=== PATIENT | female | born 1950 | race Caucasian/White ===

== ENCOUNTER → 2020-02-18 18:05 | Outpatient (CLI) | payer MEDICARE, SELFPAY ==
--- NOTE | ~2020-02-18 | MM_ITS ---
EXAMINATION: MM screening [facility] BI w jason HISTORY: Screening mammogram TECHNIQUE: Craniocaudal and mediolateral oblique 3-D tomosynthesis images were obtained and synthetic 2-D images were generated. CAD analysis was submitted and interpreted. COMPARISON: 08/18/2018, 06/09/2017, 02/28/2016 BREAST PARENCHYMAL COMPOSITION: There are scattered areas of fibroglandular density. FINDINGS: RIGHT BREAST: There is possible architectural distortion in the middle third of the outer breast appr oximately 7 cm from the nipple. LEFT BREAST: An asymmetry is present in the posterior third of the outer breast on the craniocaudal v iew. IMPRESSION: 1. Bilateral breast findings as described above. 2. Additional mammographic views and possible breast ultrasound are recommended. BI-RADS Category 0: Incomplete: Needs additional imaging evaluation. Reviewed, dictated and finalized at location A. IST ATTENDANT IMPRESSION: 1. Bilateral breast findings as described above. 2. Additional mammographic views and possible breast ultrasound are recommended . BI-RADS Category 0: Incomplete: Needs additional imaging evaluation.
== END ==
PROVIDERS: PCP Internal Medicine; Visit Provider Obstetrics & Gynecology
DX: Z12.31 Encounter for screening mammogram for malignant neoplasm of breast (principal); R92.8 Other abnormal and inconclusive findings on diagnostic imaging of breast
CPT/HCPCS: 77063; 77067

== ENCOUNTER → 2020-03-17 07:38 | Outpatient (CLI) | payer MEDICARE, SELFPAY ==
--- NOTE | ~2020-03-17 | MM_ITS ---
EXAMINATION: MM diagnostic mammo BI HISTORY: Architectural distortion/asymmetry reported on 02/18/2020 screening mammogram TECHNIQUE: Additional full field ML and spot CC 3-D tomosynthesis images of both breasts were perform ed and synthetic 2-D images were generated. Rolled medial and rolled lateral craniocaudal views. CAD analysis was submitted and interpreted. COMPARISON: 02/18/2020,08/18/2018, 06/09/2017 bilateral digital screening mammogram examinations FINDINGS: No suspicious mass or architectural distortion, malignant calcification, skin thickening or retraction or significant new or developing density of either breast is detected. IMPRESSION: 1. No mammographic evidence of malignancy 2. Routine annual mammographic screening is recommended. BI-RADS Category 1: Negative Reviewed, dictated and finalized at location A. HEALTH NURSE
== END ==
PROVIDERS: PCP Internal Medicine; Visit Provider Obstetrics & Gynecology
DX: N64.89 Other specified disorders of breast (principal)
CPT/HCPCS: 77066

== ENCOUNTER → 2020-06-23 00:06 | Outpatient (CLI) | payer MEDICARE, SELFPAY ==
[2020-06-23 18:59] LABS: SARS-CoV-2 RNA PCR Negative
== END ==
PROVIDERS: PCP Internal Medicine; Visit Provider Internal Medicine Gastroenterology
DX: Z01.812 Encounter for preprocedural laboratory examination (principal); Z20.822 Contact with and (suspected) exposure to COVID-19
CPT/HCPCS: C9803; U0003; U0005

== ENCOUNTER 2020-06-26 01:33 | Day surgery (SDC) | payer MEDICARE, SELFPAY ==
[2020-06-12 15:12] VITALS: BMI 24.1
[2020-06-26 06:24] VITALS: BP 141/77; PULSE 64; RESP 15; TEMP 36.4; O2SAT 97; BMI 25.0
[2020-06-26] MEDS: LACTATED RINGERS 1,000 ML 150 ML IV CONT (06:33)
--- NOTE | 2020-06-26 07:14 | P.PNAN_ITS ---
Anes - Initial Pre Proc Eval Procedure: Operation Date: 06/26/20 07:30 Proposed Procedures p Screening Colonoscopy - Thaddeus Vera MD Date/Time: 06/26/20 07:14 Surgeon: Thaddeus Vera MD Pre Op Diagnosis: family hx colon CA Patient Data Age: 70 Gender: F Height: 5 ft 1 in Weight: 60.2 kg Last Vital Signs Temp 97.5 F L 06/26/20 06:24 Pulse 64 06/26/20 06:24 Resp 15 06/26/20 06:24 BP 141/77 H 06/26/20 06:24 Pulse Ox 97 06/26/20 06:24 Allergies Allergy/AdvReac Type Severity Reaction Status Date / Time No Known Allergies Allergy Mild Unverified 06/26/20 06:22 Home Medications Medication Instructions Recorded Confirmed Type No Home Medications 06/12/20 06/26/20 History Patient hx anesthesia problems: none Family hx anesthesia problems: none [facility] Past Medical History Medical History (Updated 06/26/20 @ 07:07 by Sarabjit Patterson MD) Hyperlipidemia Social History Social History Alcohol intake: current Drinks per week: 1 Living arrangements: with family Gender identity (if verbalized by the patient): Female Spiritual care concerns: No Anes - Eval Final PreProcedure Day of Procedure 06/26/20 07:14 Patient weight: normal Heart: regular rate and rhythm Lungs: clear to auscultation Airway: Mallampati scale class II Neurological: alert and oriented Last oral intake: >/= 8 hours ASA classification: II Emergent: no Anesthetic plan: proceed Anesthesia type and monitoring: general GIVS and standard monitoring Informed Consent: The patient's anesthetic plan and its attendant risks and benefits were discussed with the patient/family/POA. Questions were solicited and answers provided to the satisfaction of the patient/family/POA.
--- NOTE | 2020-06-26 07:14 | PM.HPGS ---
History of Present Illness History of Present Illness Consent: Risks, benefits, and alternatives have been discussed and questions answered. Patient agrees to proceed with procedure. Chief complaint: family hx colon CA Narrative: Lucy Mcallister is a 70 year old female For colon cancer screening. Her mother had colon cancer Review of Systems Review of Systems: All systems reviewed & are unremarkable except as noted in HPI and below PMFSH Past Medical History Medical History (Updated 06/26/20 @ 07:14 by Thaddeus Vera MD) Hyperlipidemia Social History Social History Alcohol intake: current Drinks per week: 1 Living arrangements: with family Gender identity (if verbalized by the patient): Female Spiritual care concerns: No Meds Home Medications and Allergies Home Medications Medication Instructions Recorded Confirmed Type No Home Medications 06/12/20 06/26/20 History Allergies Allergy/AdvReac Type Severity Reaction Status Date / Time No Known Allergies Allergy Mild Unverified 06/26/20 06:22 Vital Signs Vital Signs - 24 hr 06/26/20 06:24 Temperature 36.4 C L Pulse Rate 64 Respiratory Rate 15 Blood Pressure 141/77 H Pulse Oximetry 97 Exam Resp: Auscultation: clear to auscultation bilaterally Cardio: Rate: regular rate Rhythm: regular rhythm GI: GI Palp: Yes Soft to palpation and No Tenderness to palpation present (GI) Assessment and Plan Assessment and plan (1) Colon cancer screening: Code(s): Z12.11 - Encounter for screening for malignant neoplasm of colon Status: Acute Assessment and Plan: Colonoscopy with possible biopsy or polypectomy or cautery or injection of substances.
[2020-06-26 07:42] VITALS: BP 111/77; PULSE 62; RESP 18; O2SAT 98
[2020-06-26 07:52] VITALS: BP 131/88; PULSE 62; RESP 21; O2SAT 100
[2020-06-26 08:02] VITALS: BP 129/83; PULSE 67; RESP 19; O2SAT 100
== END 2020-06-26 08:12 | disposition home or self-care (01) ==
PROVIDERS: PCP Internal Medicine; Visit Provider Internal Medicine Gastroenterology
PROC: 0DJD8ZZ Inspection of Lower Intestinal Tract, Via Natural or Artificial Opening Endoscopic (ICD-10-PCS; CPT 45378; principal; 2020-06-26 07:30)
DX: Z12.11 Encounter for screening for malignant neoplasm of colon (principal); Z80.0 Family history of malignant neoplasm of digestive organs
CPT/HCPCS: G0105; C9803; J2704; J7120; U0003; U0005

== ENCOUNTER → 2021-05-25 14:19 | Outpatient (CLI) | payer MEDICARE, SELFPAY ==
--- NOTE | ~2021-05-25 | DEXA_ITS ---
Bone Density Report Name: JEAN-PIERRE ONEAL Age: 70 Sex: Female Ethnicity: White Date of : 1950 Indication: osteopenia; postmenopausal Referring Provider: Stu, James Pham Study: Bone densitometry was performed. Exam Date: May 25, 2021 Accession number: [id number] Bone Density: Region BMD T-score Z-score Classification AP Spine (L1-L4) 0.859 -1.7 0.3 Osteopenia Femoral Neck (Left) 0.692 -1.4 0.3 Osteopenia Total Hip (Left) 0.826 -0.9 0.5 Normal Femoral Neck (Right) 0.705 -1.3 0.4 Osteopenia Total Hip (Right) 0.801 -1.2 0.3 Osteopenia Total Hip Mean 0.814 -1.1 0.4 Osteopenia World Health Organization criteria for BMD impression classify patients as: Normal (T-score at or above -1.0), Osteopenia (T-score between -1.0 and -2.5), or Osteoporosis (T-score at or below -2.5). 10-year Fracture Risk(1): Major Osteoporotic Fracture 9.4% Hip Fracture 1.2% Reported Risk Factors: [place] (), Neck BMD=0.692, BMI=23.8 (1) FRAX(R) Version 3.08. Fracture probability calculated for an untreated patient. Fracture probability may be lower if the patient has received treatment. Previous Exams: Region Exam Age BMD T-score BMD Change BMD Change Date g/cm2 vs Baseline vs Previous AP Spine(L1-L4) 05/25/2021 70 0.859 -1.7 0.034* -0.061* 02/03/2016 65 0.920 -1.2 0.095* -0.015 08/24/2012 62 0.936 -1.0 0.111* 0.019 10/23/2007 57 0.917 -1.2 0.092* 0.092* 09/28/2004 54 0.825 -2.0 Total Hip(Left) 05/25/2021 70 0.826 -0.9 0.049* 0.000 02/03/2016 65 0.826 -1.0 0.049* 0.009 08/24/2012 62 0.817 -1.0 0.040* 0.053* 10/23/2007 57 0.764 -1.5 -0.013 -0.013 09/28/2004 54 0.777 -1.4 Total Hip(Right) 05/25/2021 70 0.801 -1.2 0.030* 0.000 02/03/2016 65 0.801 -1.2 0.030* -0.049* 08/24/2012 62 0.850 -0.8 0.079* 0.060* 10/23/2007 57 0.790 -1.2 0.019 0.019 09/28/2004 54 0.771 -1.4 *Denotes significance at 95% confidence level, LSC for AP Spine = 0.022 g/cm2, LSC for Total Hip = 0.027 g/cm2 Clinical Information Provided by Patient: Has used the following medications: Vitamin D Patient maximum height was 62 Menopause Age: 53 Drinks caffeinated beverages Onset of menses at age 15 Number of children 2
--- NOTE | ~2021-05-25 | MM_ITS ---
EXAMINATION: MM screening [facility] BI w jason HISTORY: Screening mammogram TECHNIQUE: Craniocaudal and mediolateral oblique 3-D tomosynthesis images were obtained and synthetic 2-D images were generated. CAD analysis was submitted and interpreted. COMPARISON: 03/17/2020, 02/18/2020, 08/18/2018 BREAST PARENCHYMAL COMPOSITION: There are scattered areas of fibroglandular density. FINDINGS: There is no evidence of suspicious mass, calcification, or architectural distortion to sugg est malignancy in either breast. There has been no suspicious interval change. IMPRESSION: 1. No mammographic evidence of malignancy. 2. Recommend routine screening mammography in one year. BI-RADS Category 1: Negative Reviewed, dictated and finalized at location A. MS PROCESSOR
== END ==
PROVIDERS: PCP Internal Medicine; Visit Provider Obstetrics & Gynecology
DX: Z12.31 Encounter for screening mammogram for malignant neoplasm of breast (principal); N95.9 Unspecified menopausal and perimenopausal disorder; Z87.39 Personal history of other diseases of the musculoskeletal system and connective tissue; M85.88 Other specified disorders of bone density and structure, other site; M85.852 Other specified disorders of bone density and structure, left thigh; M85.851 Other specified disorders of bone density and structure, right thigh
CPT/HCPCS: 77063; 77067; 77080

== ENCOUNTER → 2022-07-12 13:11 | Outpatient (CLI) | payer MEDICARE, SELFPAY ==
--- NOTE | ~2022-07-12 | MM_ITS ---
EXAMINATION: MM screening [facility] BI w jason HISTORY: Screening TECHNIQUE: Craniocaudal and mediolateral oblique 3-D tomosynthesis images were obtained and synthetic 2-D images were generated. CAD analysis was submitted and interpreted. COMPARISON: Comparison to multiple prior studies sequentially, with oldest reviewed study dated 02/12. BREAST PARENCHYMAL COMPOSITION: Breast composed of scattered areas of fibroglandular density FINDINGS: There is no evidence of suspicious mass, calcification, or architectural distortion to sugg est malignancy in either breast. There has been no suspicious interval change. IMPRESSION: 1. No mammographic evidence of malignancy. 2. Recommend routine screening mammography in one year. BI-RADS Category 1: Negative Reviewed, dictated and finalized at location A.
== END ==
PROVIDERS: PCP Internal Medicine; Visit Provider Internal Medicine
DX: Z12.31 Encounter for screening mammogram for malignant neoplasm of breast (principal)
CPT/HCPCS: 77063; 77067

== ENCOUNTER 2023-12-30 11:12 | Outpatient (CLI) | payer MEDICARE, SELFPAY ==
--- NOTE | ~2023-12-30 | MM_ITS ---
EXAMINATION: MM screening [facility] BI w jason HISTORY: Screening mammogram TECHNIQUE: Craniocaudal and mediolateral oblique 3-D tomosynthesis images were obtained and synthetic 2-D images were generated. CAD analysis was submitted and interpreted. COMPARISON: 07/12/2022, 05/25/2021, 03/17/2020, 02/18/2020 BREAST PARENCHYMAL COMPOSITION:Not Dense. The breasts are almost entirely fatty FINDINGS: No suspicious mass, calcification, or architectural distortion are identified in either sugar ast to suggest malignancy. There has been no suspicious interval change. IMPRESSION: No mammographic evidence of malignancy. Recommend routine screening mammography in one year. BI-RADS Category 1: Negative Reviewed, dictated and finalized at location .
== END 2023-12-30 11:13 | disposition home or self-care (01) ==
PROVIDERS: PCP Internal Medicine; Visit Provider Internal Medicine
DX: Z12.31 Encounter for screening mammogram for malignant neoplasm of breast (principal)
CPT/HCPCS: 77063; 77067

== ENCOUNTER 2024-04-08 09:12 | Emergency (ER) | payer MEDICARE, SELFPAY ==
--- NOTE | ~2024-04-08 | XR_ITS ---
EXAMINATION: XR chest 2V DATE: 04/08/2024 09:42 INDICATION: Cough and chest congestion TECHNIQUE: PA and lateral views of the chest were obtained. COMPARISON: None FINDINGS: The lungs are clear with no focal airspace opacities, pulmonary edema, pleural effusion or pneumothor ax. The cardiomediastinal silhouette is normal. Visualized bones and soft tissues are unremarkable. IMPRESSION: 1. No acute cardiopulmonary disease. Reviewed, dictated and finalized at location B. BENCH OPERATOR
[2024-04-08 09:25] VITALS: BP 120/60; PULSE 62; RESP 18; TEMP 36.4; O2SAT 96
--- NOTE | 2024-04-08 09:33 | ED.URI ---
HPI - URI/Sore Throat General Chief Complaint: Upper Respiratory Infection Stated Complaint: cough Time Seen by Provider: 04/08/24 09:25 Source: patient, RN notes reviewed and old records reviewed Mode of arrival: ambulatory Limitations: no limitations History of Present Illness HPI Narrative: Patient presents with complaints of cough. She reports that last week she had some URI symptoms, body aches, runny nose, low-grade fever. She reports all of these symptoms have since resolved over the past several days. She is concerned because she has got a lingering cough, but she also admits that she feels this is getting better. She has been taking [id number] medications with moderate relief. States that she is primarily here today because her family encouraged her to come in, states that she is feeling much better than she was a week ago. Related Data Home Medications ?Medication ?Instructions ?Recorded ?Confirmed ?Last Taken ?Type amlodipine 5 mg tablet mg 04/08/24 Unknown History Allergies Allergy/AdvReac Type Severity Reaction Status Date / Time No Known Allergies Allergy Mild Verified 04/08/24 09:27 Review of Systems Review of Systems: All systems reviewed & are unremarkable except as noted in HPI and below Constitutional: Constitutional: Reports no additional constitutional complaints ENT: Reports system reviewed and no additional complaints, except as documented Cardiovascular: Cardiovascular: Reports no additional cardiovascular complaints Respiratory: Respiratory: Reports no additional respiratory complaints and Reports cough Gastrointestinal: Gastrointestinal: Reports no additional gastrointestinal complaints PMFSH Past Medical History Medical History Hyperlipidemia Social History Social History Alcohol intake: current Drinks per week: 1 Living arrangements: with family Gender identity (if verbalized by the patient): Female Spiritual care concerns: No Comments At the time of my signature, I reviewed and agree with the nursing past medical, surgical, social, and family history. There is no relevant family history pertinent to the patient complaint. Exam Const: General: cooperative, no acute distress, alert and awake Orientation/consciousness: oriented to person, oriented to place and oriented to time HENMT: Head: normal to inspection Resp: Effort & Inspection: normal respiratory effort and able to speak in complete sentences Auscultation: clear to auscultation bilaterally, no crackles, no rales, no rhonchi and no wheezes Cardio: Palpation: normal PMI Rate: regular rate Rhythm: regular rhythm Heart sounds: S1 normal heart sound present and S2 normal heart sound present Neuro: General: oriented to person, oriented to place and oriented to time Cranial nerves: Yes CN's II-XII intact bilaterally Psych: Appearance: grossly normal Thought process: Normal thought process present Insight: Good insight present (Psych) Judgement: Good judgement present (Psych) Course Course Level of Care: Express Care Visit Vital Signs Vital signs: Vital Signs Temperature 97.6 F 04/08/24 09:25 Pulse Rate 62 04/08/24 09:25 Respiratory Rate 18 04/08/24 09:25 Blood Pressure 120/60 04/08/24 09:25 Pulse Oximetry 96 04/08/24 09:25 Oxygen Delivery Room Air 04/08/24 09:25 Temperature 97.6 F 04/08/24 09:25 Pulse Rate 62 04/08/24 09:25 Respiratory Rate 18 04/08/24 09:25 Blood Pressure 120/60 04/08/24 09:25 Pulse Oximetry 96 04/08/24 09:25 Oxygen Delivery Room Air 04/08/24 09:25 Reviewed MDM - URI/Sore Throat MDM Narrative Medical decision making narrative: patient with URI symptoms that began last week, those are subsiding. Now with cough that she feels is improving. Clear chest x-ray. Symptoms likely viral in origin. Treat symptomatically. Patient nontoxic appearing and stable for discharge home. Discharge instructions reviewed with patient, as well as provided in writing per nursing staff. The instructions also include specific and strict return/GO TO THE ER as well as f/u information. All questions have been answered, and the patient deny any further questions with discharge and discharge plan. Some parts of this dictation were generated by voice recognition software and may contain typographical and/or grammatical inaccuracies. Differential Diagnosis Differential diagnosis: Likely upper respiratory infection, otitis media, sinusitis, bronchitis and pharyngitis Medical Records Attestation: I reviewed the patient's medical records. Imaging Data My impression: no acute findings Radiologist's impression: Express [address] [address] XRay Report Signed Patient: EsvinLucy S : 1950 MR#: [id number] Age: 73 Acct:[id number] Loc: [facility] ADM Date: 04/08/24Attending Dr: Ordering Physician: Cindy Weinstein FNP Date of Service: 04/08/24 Procedure(s): XR chest 2V Accession Number(s): [id number] cc: Cindy Weinstein FNP; Irving, Anne Prabhakar MD~ EXAMINATION: XR chest 2V DATE: 04/08/2024 09:42 INDICATION: Cough and chest congestion TECHNIQUE: PA and lateral views of the chest were obtained. COMPARISON: None FINDINGS: The lungs are clear with no focal airspace opacities, pulmonary edema, pleural effusion or pneumothorax. The cardiomediastinal silhouette is normal. Visualized bones and soft tissues are unremarkable. IMPRESSION: 1. No acute cardiopulmonary disease. Reviewed, dictated and finalized at location B. [facility] [employer] Dictated By: Ammon Meraz MD 04/08/24943 Signed By: <Electronically signed by Ammon Meraz MD in OV> 04/08/24 09 Discharge Plan Discharge Clinical Impression: Upper respiratory infection Qualifiers: URI type: unspecified viral URI Qualified Code(s): J06.9 - Acute upper respiratory infection, unspecified Patient Disposition: Home, Self-Care Condition: Stable Instructions: Antibiotic Form, Acute Cough (ED) Additional Instructions: Take medications as prescribed. Follow with primary care provider. Emergency department for new or worse symptoms Patient Language: Syriac Prescriptions: New benzonatate 200 mg capsule 200 mg PO TID PRN (Reason: cough) Qty: 30 0RF albuterol sulfate [Ventolin HFA] 90 mcg/actuation HFA aerosol inhaler 2 puff inhalation QID PRN (Reason: shortness of breath or wheezing) Qty: 8.5 0RF prednisone 50 mg tablet 50 mg PO DAILY Qty: 5 0RF No Action amlodipine 5 mg tablet Follow-up/Referrals: Irving,Anne Prabhakar MD [Primary Care Provider] - 1 Week Time of Disposition: 09:54
--- OUTSIDE RECORDS SUMMARY | 2024-04-15 23:00 | XMS_ITS | Referral Summary ---
Author Organization [facility] Office Center Address [address] [place] [address] Care Team Providers Care Trust Manager Assistant Name Role Phone Anne Villatoro MD Primary Care Provider [phone] González Moser OD Unavailable [phone] Carlos Antony MD Unavailable [phone] Esha Madrid MD Unavailable + [phone] Margarito Torre MD Unavailable [phone] Allergies No known active allergies Medications melatonin tablet Take 1 tablet (3 mg total) by mouth nightly as needed Active ASCORBIC ACID-ASCORBATE CALC ORAL 500 mg daily Active calcium carbonate/paco min D3 (CALCIUM 500 + D ORAL) 600 mg daily Active cholecalcifero l, vitamin D3, (CHOLECALCIFER OL, VIT D3,,BULK, MISC) 1,000 Units daily Active cyanocobalamin (Vitamin B-12) 1,000 mcg tablet daily Active vit C,S-Zy-pcbvj-l utein-zeaxan [id number] oy-gyrk-hy-mg capsule Take 1 tablet by mouth daily Active traZODone (DESYREL) 50 mg tablet Take 1 tablet (50 mg total) by mouth nightly 45 tablet 1 12/10/19 21 Active Additional Information Patient not taking.Reported on 08/11/2023 magnesium gluconate 200 mg tabletIndicati ons:hypomagnes emia 1 tablet (200 mg total) Active uercclsj-vqz-q errous fumarate (Multi Vitamin) 9 mg iron/15 mL liquid Take by mouth Active valACYclovir (VALTREX) 1 gram tablet Take 2 tabs (2000 mg) 2 times a days for 1 day prn fever blisters 4 tablet 5 12/23/19 24 Active amLODIPine (NORVASC) 5 mg tabletIndicati ons:Hypertensi on, essential TAKE 1 TABLET (5 MG) BY MOUTH DAILY 90 tablet 04/12/20 24 Active amLODIPine (NORVASC) 5 mg tabletIndicati ons:Hypertensi on, essential Take 1 tablet (5 mg total) by mouth daily 90 tablet 3 06/23/19 24 024 Discontinued Active Problems Problem Noted Date Diagnosed Date Family history of early CAD 06/17/2022 Hypertension, essential 05/01/2022 Overview (08/05/2022): Managed by Dr Madrid, cardiology Assessment & Plan (08/05/2022 5:24 PM CDT): Managed by Dr Madrid, cardiology Follow low sodium DASH Diet. Exercise regularly for CV health and weight loss. Achieve or Maintain normal BMI/Weight. Take medications as prescribed. Report if having problems with the medication or if develops Chest pains. Monitor BP occly and record. Report if BP consistently over 160/90 or under 90/60 and dizzy and LH. Continue Rx medication. BP is controlled and stable. Assessment & Plan (05/01/2022 12:30 PM GEOTECHNICAL ENGINEER): New onset With WHITEHEAD Responded to amlodipine Cont BP med Ff low sodium diet Exercise ekg today Refer to cardio for stress testing famhx of CAD At risk for stroke or CT Cont to monitor BP and record Low bone mass 07/30/2021 Overview (08/05/2022): dexa 05/25/21 osteopenia on 4000 international units of D3 and taking calcium daily Assessment & Plan (08/05/2022 2:38 PM CDT): Density up to date Cont to exercise for bone strengthening and balance Cont calcium and vit D rich supplements and diet Family history of colon cancer in mother 020 Overview (08/11/2023): Dr Colin, Colonoscopy 02/26/2015 normal Assessment & Plan (08/11/2023 9:52 AM CDT): 2020 last colonoscopy, no polyps , Dr. Jensen Patient goes every five years due to family history Assessment & Plan (07/30/2021 3:17 PM CDT): 2020 last colonoscopy, no polyps Goes every 5 yrs Assessment & Plan (04/10/2020 8:43 AM GEOTECHNICAL ENGINEER): Dr Colin, Colonoscopy 02/26/2015 normal, due q [address] Colin, patient is sched in may 2020 Family history of macular degeneration 0 Overview (04/10/2020): Brother and Mother Assessment & Plan (07/30/2021 3:18 PM CDT): So far no signs of AMD Takes eye vitamins Assessment & Plan (04/10/2020 8:39 AM GEOTECHNICAL ENGINEER): Cont annual eye exams with Dr Quiles Refused influenza vaccine 04/10/2020 Assessment & Plan (04/10/2020 8:56 AM GEOTECHNICAL ENGINEER): Has never been vaccinated for flu, continues to decline. History of COVID-19 11/27/2019 Overview (08/11/2023): Tested at [facility], positive Mild course, WHITEHEAD and fatigue, mild cough 11/2019 1st bout of covid 12/2022 2nd bout of covid Medicare annual wellness visit, subsequent 11/09 Assessment & Plan (08/11/2023 9:47 AM CDT): Cont mvi daily, and daily b12 Reviewed previous labs and diagnostic test results. Chronic medical problems evaluated and management plans discussed with the patient. Prescription medications, supplements, vitamins and immunizations reviewed. Wear seatbelts. Use sunscreen. Discussed healthy diet and disease prevention. Recommend moving towards a plant based diet. Discussed importance of scheduling recommended screening tests. Discussed importance of regular physical examinations for health maintenance. Discussed importance of a living will, advanced directives and establishing or updating healthcare power of divorce attorney document and providing our office with a copy. Assessment & Plan (08/05/2022 2:21 PM CDT): Cont mvi daily, and daily b12 Reviewed previous labs and diagnostic test results. Chronic medical problems evaluated and management plans discussed with the patient. Prescription medications, supplements, vitamins and immunizations reviewed. Wear seatbelts. Use sunscreen. Discussed healthy diet and disease prevention. Recommend moving towards a plant based diet. Discussed importance of scheduling recommended screening tests. Discussed importance of regular physical examinations for health maintenance. Discussed importance of a living will, advanced directives and establishing or updating healthcare power of divorce attorney document and providing our office with a copy. Assessment & Plan (07/30/2021 3:05 PM CDT): Reviewed previous labs and diagnostic test results. Chronic medical problems evaluated and management plans discussed with the patient. Prescription medications, supplements, vitamins and immunizations reviewed. Wear seatbelts. Use sunscreen. Discussed healthy diet and disease prevention. Recommend moving towards a plant based diet. Discussed importance of scheduling recommended screening tests. Discussed importance of regular physical examinations for health maintenance. Discussed importance of a living will, advanced directives and establishing or updating healthcare power of divorce attorney document and providing our office with a copy. Assessment & Plan (04/10/2020 8:36 AM GEOTECHNICAL ENGINEER): Reviewed previous labs and diagnostic test results. Chronic medical problems evaluated and management plans discussed with the patient. Prescription medications, supplements, vitamins and immunizations reviewed. Wear seatbelts. Use sunscreen. Discussed healthy diet and disease prevention. Recommend moving towards a plant based diet. Discussed importance of scheduling recommended screening tests. Discussed importance of regular physical examinations for health maintenance. Discussed importance of a living will, advanced directives and establishing or updating healthcare power of divorce attorney document and providing our office with a copy. Please give the patient papers with information on Advanced Directives, Healthcare Power of Airplane Gas Tank Liner Assembler and Living Will to complete and bring back to the office for their medical records. For comprehensive documentation of your Healthcare directives, I recommend that you fill out paperwork for 5 WISHES online at [email or web address] and return a copy of the completed forms to my office. Assessment & Plan (11/15/2019 8:58 AM CDT): Wear sunscreen with SPF over 50 while outdoors. Wear sun protective head wear and clothing if planning to stay outdoors exposed to the direct sunlight for extended hours. Wear seatbelts while in a vehicle. Do not TEXT and DRIVE Do not DRINK and DRIVE. Drink responsibly Follow a heart healthy diet and lifestyle. Consume 5-7 servings of fruits and vegetables a day.. Such as the Mediterranean Diet. Maintain/attain normal body weight. Exercise regularly, minimum 20 mins 3 days a week to reduce cardiovascular healthy. Maintain good sleep schedule and sleep habits I recommend that all patients follow a diet that is high in fruits and vegetables and low in processed foods such as sugar and foods that are made with white flour. I recommend using beneficial fats such as olive oil, nuts, seeds and berries and avoiding saturated animal fats. Please stay physically active to the extent that you are physically able to. Test results: if you have not received communication about test results within 7 days of the test being performed, please contact the office. I strongly encourage [employer] sign ups. It can facilitate communication flow. Please contact the office for instructions on signing up. Assessment & Plan (11/09/2018 9:18 AM CDT): Wear sunscreen while outdoors. Wear seatbelts while in a vehicle. Do not text and drive. Follow a heart healthy diet and lifestyle. Consume 5-7 servings of fruits and vegetables a day. Maintain/attain normal body weight. Maintain good sleep schedule and sleep habits. I recommend that all patients follow a diet that is high in fruits and vegetables and low in processed foods such as sugar and foods that are made with white flour. I recommend using beneficial fats such as olive oil, nuts, seeds and berries and avoiding saturated animal fats. Please stay physically active to the extent that you are able. Test results: if you have not received communication about test results within 7 days of the test being performed, please contact the office. Dexa hip and spine due Risk for falls 11/09/2018 Assessment & Plan (08/11/2023 9:47 AM CDT): Patient at risk for falls due to age and co morbidities. Fall prevention discussed c patient in detail. Exercises for balance and coordination, keep LE muslces toned and strong. Assessment & Plan (08/05/2022 2:21 PM CDT): Patient at risk for falls due to age and co morbidities. Fall prevention discussed c patient in detail. Exercises for balance and coordination, keep LE muslces toned and strong. Assessment & Plan (07/30/2021 3:05 PM CDT): Patient at risk for falls due to age and co morbidities. Fall prevention discussed c patient in detail. Exercises for balance and coordination, keep LE muslces toned and strong. Assessment & Plan (04/10/2020 8:16 AM GEOTECHNICAL ENGINEER): Patient at risk for falls due to age and co morbidities. Fall prevention discussed c patient in detail. Exercises for balance and coordination, keep LE muslces toned and strong. Assessment & Plan (11/15/2019 8:58 AM CDT): Patient at risk for falls due to age and co morbidities. Fall prevention discussed c patient in detail. Exercises for balance and coordination, keep LE muslces toned and strong. Assessment & Plan (11/09/2018 6:17 PM CDT): Patient at risk for falls due to age and co morbidities. Fall prevention discussed c patient in detail. Exercises for balance and coordination, keep LE muslces toned and strong. Chronic insomnia 10/09/2015 Overview (08/05/2022): Trazodone takes it prn Melatonin prn Magnesium nightly, by Nature made Assessment & Plan (08/11/2023 11:08 AM CDT): Rarely uses the trazodone for sleep, prn Cont otc Melatonin prn Cont otc Magnesium nightly, by Nature made it is helping Assessment & Plan (08/05/2022 5:31 PM CDT): Cont rxTrazodone takes it prn Cont otc Melatonin prn Cont otc Magnesium nightly, by Nature made it is helping Assessment & Plan (07/30/2021 3:19 PM CDT): Does not need it nightly Only takes if has not slept several nightls in a row like 5-7 nights Assessment & Plan (04/10/2020 8:44 AM GEOTECHNICAL ENGINEER): Good sleep hygiene. Continue trazodone prn and melatonin prn Assessment & Plan (11/09/2018 9:19 AM CDT): Good sleep hygiene. Continue trazodone and melatonin. Resolved Problems Problem Noted Date Diagnosed Date Resolved Date Atypical chest pain 05/01/2022 08/06/19 23 Assessment & Plan (05/01/2022 12:29 PM GEOTECHNICAL ENGINEER): Chest pressure woke her up lasted 10 mins No assoc sx Patient later had elev BP new very high with WHITEHEAD Rule out cad ekg today Refer to cardio recommend stress testing Immunizations Name Administration Dates Next Due Influenza, Unspecified 01/12/2022(Deferr ed: Patient Refused),01/12/2021(Deferred: Patient Refused) Moderna SARS-CoV-2 Monovalen t Vaccination (12+ YRS) 02/20/2021 Pneumococcal Conjugate PCV 13 11/09/2018 Pneumococcal Polysaccharide PPV23 04/10/2020 Td, adsorbed 12/13/2006 Tdap 10/07/2016 ZOSTER LIVE 08/29/2014,08/28/2014 ZOSTER Recombinant 09/23/2018,02/06/2018, 018 Social History Tobacco Use Types Packs/Day Years Used Date Smoking Tobacco: Never Smokeless Tobacco: Never Tobacco Cessation:Counseling Given: Not Answered Alcohol Use Standard Drinks/Week Comments Yes 0 (1 standard drink = 0.6 oz pur e alcohol) AUDIT-C Answer Date Recorded Q1: How often do you have a drink containing alc ohol? 2-4 times a month 08/05/2022 Q2: How many drinks containi ng alcohol do you have on a typical day when you are drinking? 1 or 2 08/05/2022 Q3: How often do you have si x or more drinks on one occasion? Never 08/05/2022 PHQ-2 Answer Date Recorded PHQ-2 Total Score (If total score is 3 or more points, staff should administer the PHQ-9) 0 08/11/2023 Comments No Sex and Gender Information Value Date Recorded Sex Assigned at Not on file Legal Sex Female 7:33 PM GEOTECHNICAL ENGINEER Gender Identity Not on file Sexual Orientation Not on file Last Filed Vital Signs Vital Sign Reading Time Taken Comments Blood Pressure 114/74 08/11/2023 10:18 AM CDT Pulse 68 08/11/2023 10:18 AM CDT Temperature 36.3 ??C (97.4 ??F) 08/11/2023 10:18 AM C DT Respiratory Rate 16 08/05/2022 1:38 PM CDT Oxygen Saturation 96% 08/11/2023 10:18 AM CDT Inhaled Oxygen Concentration - - Weight 58.5 kg (129 lb) 08/11/2023 10:18 AM CDT Height 154.9 cm (5' 1 ) 08/11/2023 10:18 AM CDT Body Mass Index 24.37 08/11/2023 10:18 AM CDT Plan of Treatment Not on file Procedures Procedure Name Priority Date/Time Associated Diagnosis Comments MAMMOGRAPHY Routine 12/30/2023 DEXA SCAN Routine 06/05/2021 COLONOSCOPY Routine 06/26/2020 HEPATITIS C ANTIBODY Routine 05/08/2020 9:55 AM GEOTECHNICAL ENGINEER Encounter for hepatitis C screening test for low risk patient from Last 3 Months or Most Recently Relevant to Health Maintenance Results * MAMMOGRAPHY (12/30/2023) Mammography Normal us Historical Provider HEALTH MAINTENANCE Final Result * (ABNORMAL) DEXA SCAN (06/05/2021) Scribed Deca Scan Abnormal Historical Provider HEALTH MAINTENANCE Final Result * COLONOSCOPY (06/26/2020) Scribed Colonoscopy Normal Historical Provider HEALTH MAINTENANCE Final Result * Hepatitis C antibody (05/08/2020 9:55 AM GEOTECHNICAL ENGINEER) Pathologist [facility] Hep C Ab NON-REACTI VE NON-REACT SHIRAZ [facility] SIGNAL TO CUT-OFF 0.02 <1.00 [facility] Comment: HCV antibody was non-reactive. There is no laboratory evidence of HCV infection. In most cases, no further action is required. However, if recent HCV exposure is suspected, a test for HCV RNA (test code 93858) is suggested. For additional information please refer to http://education.MaxLinear/faq/BZU66i0 (This link is being provided for informational/ educational purposes only.) Blood specimen (specimen) 05/08/2020 9:55 AM GEOTECHNICAL ENGINEER 05/08/2020 9:59 AM GEOTECHNICAL ENGINEER Narrative [facility] - 05/09/2020 2:45 PM GEOTECHNICAL ENGINEER COLLECTION KIT GIVEN TO PATIENT. PATIENT ADVISED TO RETURN. Anne Villatoro MD LAB MICROBIOLOGY - GENERAL O RDERABLES Final Result [facility] [address] [place] [address] from Last 3 Months or Most Recently Relevant to Health Maintenance Insurance MEDICARE SOLUTIONS [facility] MEDICARE Address: [address] [address] MEDICARE [employer]UTIONS Care Teams Trust Manager Assistant Relationship Specialty Start Date End Date Anne Villatoro MD [address] [place] [id number] PCP - General Internal Medicine 11/09/18 González Moser OD [address] [place] [address] Ophthalmology 04/10/20 Carlos Antony MD [address] [place] [address] Dermatology 01/12/21 Esha Madrid MD [facility] [address] [address] Consulting Physician Interventional Cardiology 08/05/22 Margarito Torre MD [address] [facility] [address] [address] [place] [address] Referring Physician Dermatology 08/05/22
--- OUTSIDE RECORDS SUMMARY | 2024-04-15 23:00 | XMS_ITS | Encounter Summary ---
Author Organization [facility] Healthcare Address [address] [place] [address] Care Team Providers Care Registration Coordinator Name Role Phone Anne Villatoro MD Primary Care Provider [phone] González Moser OD Unavailable [phone] Carlos Antony MD Unavailable [phone] Esha Madrid MD Unavailable [phone] Margarito Torre MD Unavailable [phone] Encounter Details Date Type Department Care Team (Late st Contact Info) Description 01/05/2024 Telephone [facility] Medical Group Primary Care [address] [address] Anne Villatoro MD [facility] [address] Social History Tobacco Use Types Packs/Day Years Used Date Smoking Tobacco: Never Smokeless Tobacco: Never Alcohol Use Standard Drinks/Week Comments Yes 0 [...] on file Legal Sex Female 7:33 PM IMPORT DISPATCHER Gender Identity Not on file Sexual Orientation Not on file documented as of this encounter Miscellaneous Notes * Telephone Encounter - Fifi Edge MA - 01/05/2024 1:53 PM CDT Updated- Mammogram- [facility] documented in this encounter Plan of Treatment Not on file documented as of this encounter Procedures Procedure Name Priority Date/Time Associated Diagnosis Comments MAMMOGRAPHY Routine 12/30/2023 documented in this encounter Results * MAMMOGRAPHY (12/30/2023) Mammography Normal Historical Provider HEALTH MAINTENANCE Final Result documented in this encounter Visit Diagnoses Not on filedocumented in this encounter Care Teams Registration Coordinator Relationship Specialty Start Date End Date Anne Villatoro MD [address] [place] [id number] PCP - General Internal Medicine 11/09/18 González Moser, ABILIO [address] [place] [address] Ophthalmology 04/10/20 Carlos Antony MD [address] [place] [address] Dermatology 01/12/21 [place] [address] [place] [address] [place] [address] Consulting Physician Interventional Cardiology 08/05/22 Margarito Torre MD [address] [place] [address] Referring Physician Dermatology 08/05/22 documented as of this encounter
--- OUTSIDE RECORDS SUMMARY | 2024-04-15 23:00 | XMS_ITS | Clinical Summary ---
Author Organization [facility] Address [address] [facility] [address] Care Team Providers Care Indoor Sports Centre Manager Name Role Phone Unavailable Primary Care Provider Unavailabl e Source Comments [facility],non-owned Affiliates and Associated Physician Practices is amultiple site organization consisting of ambulatory clinics and hospital sitesin [place], [place], [place] and [place]. This disclosure is being madepursuant to the Care Everywhere program and may not contain all information available regarding this patient. Last updated 18.[facility] Social History Tobacco Use Types Packs/Day Years Used Date Smoking Tobacco: Never Assessed Sex and Gender Information Value Date Recorded Sex Assigned at Not on file Gender Identity Not on file Sexual Orientation Not on file Plan of Treatment Health Maintenance Due Date Last Done Comments BONE DENSITY TESTING 1950 COLOGUARD (AGES 45-75) - COL ON CA SCREENING 1952 COLON MONITORING 1952 COLONOSCOPY - COLON CA SCREENING 1952 CT COLONOGRAPHY - COLON CA SCREENING 1950 Colorectal Cancer Screening 1952 FIT - COLON CA SCREENING 1952 FLEX SIG - COLON CA SCREENING 1952 LIPID TESTING 1952 MAMMOGRAM 1952 HEPATITIS C SCREENING 05/31/1970 DTAP/TDAP/TD VACCINES (1 - Tdap) 1971 ZOSTER VACCINE (1 of 2) 2002 PNEUMOCOCCAL VACCINE 65+ (1 of 1 - PCV) 2017 DEPRESSION SCREENING 04/14/2023 MEDICARE AWV ? CALENDAR YEAR 2023 COVID-19 VACCINE (1 - 2023-2 5 season) 2023 INFLUENZA VACCINE (#1) 2023 Respiratory Syncytial Virus (RSV) Vaccine Pt: or over 60 yrs (1 - 1-dose 75+ series) 2027 HEPATITIS B VACCINE Aged Out No longe r eligible based on patient's age to complete this topic HIB VACCINE Aged Out No longer eligi ble based on patient's age to complete this topic HPV VACCINE Aged Out No longer eligi ble based on patient's age to complete this topic MENINGOCOCCAL VACCINE Aged Out No luis miguel nataly eligible based on patient's age to complete this topic
--- OUTSIDE RECORDS SUMMARY | 2024-04-15 23:00 | XMS_ITS | Encounter Summary ---
Author Organization [facility] Address [address] [place] [address]. [place] [address] Care Team Providers Care Church Warden Name Role Phone Unavailable Primary Care Provider Unavailabl e Encounter Details Date Type Department Care Team (Latest Contact Info) Description 05/03/2020 Travel Social History Tobacco Use Types Packs/Day Years Used Date Smoking Tobacco: Never Assessed Comments Unknown Sex and Gender Information Value Date Recorded Sex Assigned at Not on file Legal Sex Female 11:15 AM FLORAL MERCHANDISER Gender Identity Not on file Sexual Orientation Not on file COVID-19 Exposure Response Date Recorded In the last month, have you been in contact with someone who was confirmed or suspected to have Coronavirus / COVID-19? No / Unsure 05/03/2020 11:17 AM FLORAL MERCHANDISER documented as of this encounter Plan of Treatment Not on file documented as of this encounter Visit Diagnoses Not on filedocumented in this encounter
--- OUTSIDE RECORDS SUMMARY | 2024-04-15 23:00 | XMS_ITS | Patient Health Summary ---
Author Organization [facility] Address [address] [place] [address] Care Team Providers Care Geothermal Technician Name Role Phone Unavailable Primary Care Provider Unavailabl e Note from [facility],non-owned Affiliates and Associated Physician Practices is amultiple site organization consisting of ambulatory clinics and hospital sitesin [place], [place], [place] and [place]. This disclosure is being madepursuant to the Care Everywhere program and may not contain all information available regarding this patient. Last updated 18.[facility] Social History Tobacco Use Types Packs/Day Years Used Date Smoking Tobacco: Never Assessed Sex and Gender Information Value Date Recorded Sex Assigned at Not on file Gender Identity Not on file Sexual Orientation Not on file Procedures * DERMATOPATHOLOGY(Performed 12/19/2022) Performed for Neoplasm of uncertain behavior of skin Results * DERMATOPATHOLOGY (12/19/2022 3:33 AM CDT) Case Report Dermatopathology Report ? Case: [id number] ? Authorizing Provider: ??Cralos Antony MD ? Collected: ? 12/19/2022 03:33 AM ? Ordering Location: ? [facility] DermPath Lab ? Received: ?12/23/2022 08:09 AM ? Pathologist: ? Francie Amato MD ? Specimen: ?Skin, upper back ? 3 12:23 PM T DERMATOPATHOLOGY LABORATORY Final Diagnosis Specimen A. SKIN, upper back: HYPERPLASTIC (HYPERTROPHIC) ACTINIC KERATOSIS (L57.0) 3 12:23 PM T DERMATOPATHOLOGY LABORATORY Clinical History Squamous Cell Carcinoma vs. Irritated Seborrheic Keratosis 3 12:23 PM T DERMATOPATHOLOGY LABORATORY Gross Description Specimen A: Received is one formalin filled container labeled with the patient's name and designated upper back. The specimen consists of a shave biopsy measuring 6x5x3 mm. Jar 0. 3 12:23 PM T DERMATOPATHOLOGY LABORATORY Microscopic Description Specimen A. SKIN, upper back: There is hyperkeratosis alternating with parakeratosis. There is epidermal hyperplasia with disorderly maturation of keratinocytes with nuclear pleomorphism confined to the lower half of the epidermis. 3 12:23 PM T DERMATOPATHOLOGY LABORATORY Disclaimer An external and internal positive and negative controls are appropriate for the histochemical, immunohistochemical and immunofluorescence stain(s) in this case (if any), except where stated explicitly. The performance characteristics of the stain(s) cited in this report were developed and its performance characteristic determined by the Dermatopathology Laboratory at [facility], directed by Dr. Jak Easton. These tests need not be, and therefore are not, approved by the [place] Food and Drug Administration. The tests are used for clinical purposes. Billing Codes Specimen Charges Stain Charges 18526 1 3 12:23 PM CDT DERMATOPATHOLOGY LABORATORY Embedded Images 3 12:23 PM T DERMATOPATHOLOGY LABORATORY Pathology/Cytolo gy TISSUE SPECIMEN FROM SKIN / Unknown 12/19/2022 3:33 AM CDT 12/23/2022 8:09 AM CDT Carlos Antony MD LAB - PATHOLOGY/CYTO LOGY ORDERABLES DERMATOPATHOLOGY LABORATORY [facility] - Department of Dermatology [facility] Medicine [address] [place] [address], [address] [phone]
--- OUTSIDE RECORDS SUMMARY | 2024-04-15 23:00 | XMS_ITS | Encounter Summary ---
Author Organization [facility] Address [address] [place] [address]. [place] [address] [place] [address] Care Team Providers Care Manufacturing Engineer Supervisor Name Role Phone Unavailable Primary Care Provider Unavailabl e Encounter Details Date Type Department Care Team (Latest Contact Info) Description 05/03/2020 11:23 AM SALES REPRESENTATIVE FACILITY SERVICES - 05/03/2020 11:59 PM SALES REPRESENTATIVE FACILITY SERVICES Hospital Encounter [facility] Immunization [place] [address] Charles Romano MD Discharge Disposition: Home or Self Care (Routine Discharge) Social History Tobacco Use Types Packs/Day Years Used Date Smoking Tobacco: Never Assessed Comments Unknown Sex and Gender Information Value Date Recorded Sex Assigned at Not on file Legal Sex Female 11:15 AM SALES REPRESENTATIVE FACILITY SERVICES Gender Identity Not on file Sexual Orientation Not on file COVID-19 Exposure Response Date Recorded In the last month, have you been in contact with someone who was confirmed or suspected to have Coronavirus / COVID-19? No / Unsure 05/03/2020 11:17 AM SALES REPRESENTATIVE FACILITY SERVICES documented as of this encounter Plan of Treatment Not on file documented as of this encounter Visit Diagnoses Diagnosis Need for prophylactic vaccination against viral disease- Primary Need for prophylactic vaccination and inoculation against other viral diseases documented in this encounter
--- OUTSIDE RECORDS SUMMARY | 2024-04-15 23:00 | XMS_ITS | Referral Summary ---
Author Organization [facility] Address [address] [facility] [place] [address] Care Team Providers Care Emergency Management Consultant Name Role Phone Unavailable Primary Care Provider Unavailabl e Source Comments [facility],non-owned Affiliates and Associated Physician Practices is amultiple site organization consisting of ambulatory clinics and hospital sitesin [place], [place], [place] and [place]. This disclosure is being madepursuant to the Care Everywhere program and may not contain all information available regarding this patient. Last updated 18.[facility] Doctor Evidence Social History Tobacco Use Types Packs/Day Years Used Date Smoking Tobacco: Never Assessed Sex and Gender Information Value Date Recorded Sex Assigned at Not on file Gender Identity Not on file Sexual Orientation Not on file Plan of Treatment Not on file
--- OUTSIDE RECORDS SUMMARY | 2024-04-15 23:00 | XMS_ITS | Encounter Summary ---
Author Organization [facility] Address [address] [place] [address]. [place] [address] [place] [address] Care Team Providers Care Director Of Religious Life Name Role Phone Unavailable Primary Care Provider Unavailabl e Encounter Details Date Type Department Care Team (Latest Contact Info) Description 05/31/2020 12:13 PM CATCHER HELPER - 05/31/2020 11:59 PM CATCHER HELPER Hospital Encounter [facility] [place] [address] Charles Romano MD Discharge Disposition: Home or Self Care (Routine Discharge) Social History Tobacco Use Types Packs/Day Years Used Date Smoking Tobacco: Never Assessed Comments Unknown Sex and Gender Information Value Date Recorded Sex Assigned at Not on file Legal Sex Female 11:15 AM CATCHER HELPER Gender Identity Not on file Sexual Orientation Not on file COVID-19 Exposure Response Date Recorded In the last month, have you been in contact with someone who was confirmed or suspected to have Coronavirus / COVID-19? No / Unsure 05/31/2020 12:11 PM CATCHER HELPER documented as of this encounter Plan of Treatment Not on file documented as of this encounter Visit Diagnoses Diagnosis Need for prophylactic vaccination against viral disease- Primary Need for prophylactic vaccination and inoculation against other viral diseases documented in this encounter
--- OUTSIDE RECORDS SUMMARY | 2024-04-15 23:00 | XMS_ITS | Clinical Summary ---
Author Organization [facility] Address [address] [place] [address] Care Team Providers Care Stitchdown Toe Former Name Role Phone Anne Villatoro MD Primary Care Provider [phone] González Moser OD Unavailable [phone] Carlos Antony MD Unavailable [phone] Esha Madrid MD Unavailable + [phone] Margarito Torre MD Unavailable [phone] Allergies No known active allergies Medications melatonin tablet Take 1 tablet (3 mg total) by mouth nightly as needed Active ASCORBIC ACID-ASCORBATE CALC ORAL 500 mg daily Active calcium carbonate/paco min D3 (CALCIUM 500 + D ORAL) 600 mg daily Active cholecalcifero l, vitamin D3, (CHOLECALCIFER OL, VIT D3,,BULK, MISC) 1,000 Units daily Active cyanocobalamin (Vitamin B-12) 1,000 mcg tablet daily Active vit C,V-Ck-exhkh-l utein-zeaxan [id number] cz-bfqn-ef-mg capsule Take 1 tablet by mouth daily Active traZODone (DESYREL) 50 mg tablet Take 1 tablet (50 mg total) by mouth nightly 45 tablet 1 12/10/19 21 Active Additional Information Patient not taking.Reported on 08/11/2023 magnesium gluconate 200 mg tabletIndicati ons:hypomagnes emia 1 tablet (200 mg total) Active cpybpurt-twc-p errous fumarate (Multi Vitamin) 9 mg iron/15 [...] stable. Assessment & Plan (05/01/2022 12:30 PM LEVEL VIAL SETTER): New onset With WHITEHEAD Responded to amlodipine Cont BP med Ff low sodium diet Exercise ekg today Refer to cardio for stress testing famhx of CAD At risk for stroke or KS Cont to monitor BP and record Low [...] yrs Assessment & Plan (04/10/2020 8:43 AM LEVEL VIAL SETTER): Dr Colin, Colonoscopy 02/26/2015 normal, due q [address] Colin, patient is sched in may 2020 Family history of macular degeneration 0 Overview (04/10/2020): Brother and Mother Assessment & Plan (07/30/2021 3:18 PM CDT): So far no signs of AMD Takes eye vitamins Assessment & Plan (04/10/2020 8:39 AM LEVEL VIAL SETTER): Cont annual eye exams with Dr Quiles Refused influenza vaccine 04/10/2020 Assessment & Plan (04/10/2020 8:56 AM LEVEL VIAL SETTER): Has never been vaccinated for flu, continues to decline. History of COVID-19 11/27/2019 Overview (08/11/2023): Tested at [facility], positive Mild course, WHITEHEAD and fatigue, mild [...] and establishing or updating healthcare power of senior attorney document and providing our office with [...] and establishing or updating healthcare power of senior attorney document and providing our office with [...] and establishing or updating healthcare power of senior attorney document and providing our office with a copy. Assessment & Plan (04/10/2020 8:36 AM LEVEL VIAL SETTER): Reviewed previous labs and diagnostic test results. [...] and establishing or updating healthcare power of senior attorney document and providing our office with a copy. Please give the patient papers with information on Advanced Directives, Healthcare Power of Machine Inspector and Living Will to complete and bring [...] please contact the office. I strongly encourage [employer] sign ups. It can facilitate communication flow. [...] strong. Assessment & Plan (04/10/2020 8:16 AM LEVEL VIAL SETTER): Patient at risk for falls due to [...] nights Assessment & Plan (04/10/2020 8:44 AM LEVEL VIAL SETTER): Good sleep hygiene. Continue trazodone prn and melatonin prn Assessment & Plan (11/09/2018 9:19 AM CDT): Good sleep hygiene. Continue trazodone and melatonin. Resolved Problems Problem Noted Date Diagnosed Date Resolved Date Atypical chest pain 05/01/2022 08/06/19 Assessment & Plan (05/01/2022 12:29 PM LEVEL VIAL SETTER): Chest pressure woke her up lasted 10 [...] ZOSTER LIVE 08/29/2014,08/28/2014 ZOSTER Recombinant 09/23/2018,02/06/2018, 018 Surgical History Surgery Date Site/Laterality Comments TUBAL LIGATION CATARACT EXTRACTION, BILATERAL 05/15/2021 - 06/11/[address] Sarabjit Rene, 05/2021 and 06/2021 CATARACT EXTRACTION 05/2021 Medical History Medical History Date Comments Persistent insomnia Hypertension 04/24/22 Acid indigestion Hyperlipidemia Varicella Family History Medical History Relation Name Comments Macular degeneration Brother 1 Hypertension Brother 2 Amado Stroke Brother 2 Amado Alcohol abuse Father Dad Heart attack Father Dad Heart disease Father Dad COPD Mother Mom Cancer Mother Mom Colon cancer Mother Mom Macular degeneration Mother Mom Heart disease Sister Federica Relation Name Status Comments Brother 1 Alive Brother 2 Amado Alive Father Dad Mother Mom Sister Federica Social History Tobacco Use Types Packs/Day Years [...] on file Legal Sex Female 7:33 PM LEVEL VIAL SETTER Gender Identity Not on file Sexual Orientation Not on file Obstetrics History Last Filed Vital Signs Vital Sign Reading [...] 08/11/2023 10:18 AM CDT Plan of Treatment Health Maintenance Due Date Last Done Comments Hepatitis B Screening 1968 Osteoporosis Screening-Bone Density Scan 06/05/2023 06/05/2021, 02/03/2016 Covid-19 Vaccine (4 - 2024-2 5 season) 2023 02/20/2021, 05/31/2020, 05/03/2020 Depression Screening 08/10/2024 08/11/2023, 08/11/2023, 08/05/2022, Additional history exists Fall Risk Assessment 08/10/2024 08/11/2023, 08/05/2022, 07/30/2021, Additional history exists Well Visit 65+ 08/10/2024 08/11/2023, 07/14, 07/30/2021, Additional history exists Breast Cancer Screening-Mammogram 12/29/2024 12/30/2023, 07/12/2022, 05/25/2021, Additional history exists Colon Cancer Screening-Colonoscopy 06/26/2025 06/26/2020, 04/28/2013 DTaP/Tdap/Td Vaccine (2 - Td or Tdap) 10/07/2026 10/07/2016, 12/13/2006 Zoster Vaccine Completed 09/23/2018, 01/13, 02/05/2018, Additional history exists Pneumococcal vaccine 65+ Completed 04/10/2020, 10/13 Hepatitis C Screening Completed 05/08/2020 Colon Cancer Screening-CT Colonography Discontinued 06/26/2020, 04/28/2013 Colon Cancer Screening-DNA Stool Discontinued 06/27/19, 04/28/2013 Colon Cancer Screening-FIT Discontinued 06/26/2020, Colon Cancer Screening-Sigmoidoscopy Discontinued 06/26/2020, 04/28/2013 Influenza Vaccine Discontinued Procedures Procedure Name Priority Date/Time Associated Diagnosis Comments MAMMOGRAPHY Routine 12/30/2023 DEXA SCAN Routine 06/05/2021 COLONOSCOPY Routine 06/26/2020 HEPATITIS C ANTIBODY Routine 05/08/2020 9:55 AM LEVEL VIAL SETTER Encounter for hepatitis C screening test for low risk patient from Last 3 Months or Most Recently Relevant to Health Maintenance Results * MAMMOGRAPHY (12/30/2023) Mammography Normal Historical Provider HEALTH MAINTENANCE Final Result * (ABNORMAL) DEXA SCAN (06/05/2021) Scribed Deca Scan Abnormal Historical Provider HEALTH MAINTENANCE Final Result * COLONOSCOPY (06/26/2020) Scribed Colonoscopy Normal Historical Provider HEALTH MAINTENANCE Final Result * Hepatitis C antibody (05/08/2020 9:55 AM LEVEL VIAL SETTER) Hep C Ab NON-REACTI VE NON-REACT SHIRAZ [facility] SIGNAL TO CUT-OFF 0.02 <1.00 [facility] Comment: HCV antibody was non-reactive. There is no laboratory evidence of HCV infection. In most cases, no further action is required. However, if recent HCV exposure is suspected, a test for HCV RNA (test code 65351) is suggested. For additional information please refer to http://education.Canopi.Clover/faq/HAJ84d4 (This link is being provided for informational/ educational purposes only.) Blood specimen (specimen) 05/08/2020 9:55 AM LEVEL VIAL SETTER 05/08/2020 9:59 AM LEVEL VIAL SETTER Narrative [facility] - 05/09/2020 2:45 PM LEVEL VIAL SETTER COLLECTION KIT GIVEN TO PATIENT. PATIENT ADVISED TO RETURN. Anne Villatoro MD LAB MICROBIOLOGY - GENERAL O RDERABLES Final Result [facility] [id number] [id number] from Last 3 Months or Most Recently Relevant to Health Maintenance Insurance MEDICARE SOLUTIONS MEDICARE SOLUTIONS Care Teams Stitchdown Toe Former Relationship Specialty Start Date End Date Anne Villatoro MD [address] [place] [id number] PCP - General Internal Medicine 11/09/18 González Moser OD [address] [place] [address] Ophthalmology 04/10/20 Carlos Antony MD [address] [place] [address] Dermatology 01/12/21 Esha Madrid MD [address] [place] [address], [place] [address] Consulting Physician Interventional Cardiology 08/05/22 Margarito Torre MD [address] [place] [address] Referring Physician Dermatology 08/05/22
--- OUTSIDE RECORDS SUMMARY | 2024-04-15 23:00 | XMS_ITS | Encounter Summary ---
Author Organization [facility] Address [address] [place] [address]. [address] [address] Care Team Providers Care Animal Services Officer Name Role Phone Unavailable Primary Care Provider Unavailabl e Encounter Details Date Type Department Care Team (Latest Contact Info) Description 05/31/2020 Travel Social History Tobacco Use Types Packs/Day Years Used Date Smoking Tobacco: Never Assessed Comments Unknown Sex and Gender Information Value Date Recorded Sex Assigned at Not on file Legal Sex Female 11:15 AM ACADEMIC SUCCESS COORDINATOR Gender Identity Not on file Sexual Orientation Not on file COVID-19 Exposure Response Date Recorded In the last month, have you been in contact with someone who was confirmed or suspected to have Coronavirus / COVID-19? No / Unsure 05/31/2020 12:11 PM ACADEMIC SUCCESS COORDINATOR documented as of this encounter Plan of Treatment Not on file documented as of this encounter Visit Diagnoses Not on filedocumented in this encounter
--- OUTSIDE RECORDS SUMMARY | 2024-04-15 23:00 | XMS_ITS | Encounter Summary ---
Author Organization [facility] Address [address] [place] [address] Care Team Providers Care Container Repairer Name Role Phone Unavailable Primary Care Provider Unavailabl e Encounter Details Date Type Department Care Team (Late st Contact Info) Description 12/19/2022 Lab Requisition [facility] - DermPath Lab [address], [place] [address] Carlos Antony MD [facility] DERMATOLOGY [address] [place] [phone] Neoplasm of uncertain behavior of skin Social History Tobacco Use Types Packs/Day Years Used Date Smoking Tobacco: Never Assessed Sex and Gender Information Value Date Recorded Sex Assigned at Not on file Gender Identity Not on file Sexual Orientation Not on file documented as of this encounter Plan of Treatment Not on file documented as of this encounter Procedures Procedure Name Priority Date/Time Associated Diagnosis Comments DERMATOPATHOLOGY Routine 12/19/2022 3:33 AM CDT Neoplasm of uncertain behavior of skin documented in this encounter Results * DERMATOPATHOLOGY (12/19/2022 3:33 AM CDT) Case Report Dermatopathology Report ? Case: [id number] ? Authorizing Provider: ??Carlos Antony MD ? Collected: ? 12/19/2022 03:33 AM ? Ordering Location: ? [facility] ? Received: ?12/23/2022 08:09 AM ? Pathologist: ? Francie Amato MD ? Specimen: ?Skin, upper back ? 3 12:23 PM CDT DERMATOPATHOLOGY LABORATORY Final Diagnosis Specimen A. SKIN, upper back: HYPERPLASTIC (HYPERTROPHIC) ACTINIC KERATOSIS (L57.0) 3 12:23 PM T DERMATOPATHOLOGY LABORATORY Clinical History Squamous Cell Carcinoma vs. Irritated Seborrheic Keratosis 3 12:23 PM CDT DERMATOPATHOLOGY LABORATORY Gross Description Specimen A: Received is one formalin filled container labeled with the patient's name and designated upper back. The specimen consists of a shave biopsy measuring 6x5x3 mm. Jar 0. 3 12:23 PM CDT DERMATOPATHOLOGY LABORATORY Microscopic Description Specimen A. SKIN, upper back: There is hyperkeratosis alternating with parakeratosis. There is epidermal hyperplasia with disorderly maturation of keratinocytes with nuclear pleomorphism confined to the lower half of the epidermis. 3 12:23 PM CDT DERMATOPATHOLOGY LABORATORY Disclaimer An external and internal positive and negative controls are appropriate for the histochemical, immunohistochemical and immunofluorescence stain(s) in this case (if any), except where stated explicitly. The performance characteristics of the stain(s) cited in this report were developed and its performance characteristic determined by the Dermatopathology Laboratory at [facility], directed by Dr. Jak Easton. These tests need not be, and therefore are not, approved by the [place] Food and Drug Administration. The tests are used for clinical purposes. Billing Codes Specimen Charges Stain Charges 41845 1 3 12:23 PM CDT DERMATOPATHOLOGY LABORATORY Embedded Images 3 12:23 PM CDT DERMATOPATHOLOGY LABORATORY Pathology/Cytolo gy TISSUE SPECIMEN FROM SKIN / Unknown 12/19/2022 3:33 AM CDT 12/23/2022 8:09 AM CDT Carlos Antony MD LAB - PATHOLOGY/CYTO LOGY ORDERABLES DERMATOPATHOLOGY LABORATORY [facility] - Department of Dermatology [facility] Medicine [address] [place] [address], [address] [phone] documented in this encounter Visit Diagnoses Diagnosis Neoplasm of uncertain behavior of skin documented in this encounter
--- OUTSIDE RECORDS SUMMARY | 2024-04-15 23:00 | XMS_ITS | Clinical Summary ---
Author Organization [facility] Address [address] [place] [address]. [place], [place] [address] [place] [address] Care Team Providers Care Sexer Name Role Phone Unavailable Primary Care Provider Unavailabl e Immunizations Name Administration Dates Next Due MODERNA COVID-19 (12+) MRNA, LNP-S, PF, 100 MCG/ 0.5 ML DOSE 05/31/2020,05/03/2020 Social History Tobacco Use Types Packs/Day Years Used Date Smoking Tobacco: Never Assessed Comments Unknown Sex and Gender Information Value Date Recorded Sex Assigned at Not on file Legal Sex Female 11:15 AM INFECTION CONTROL PREVENTIONIST Gender Identity Not on file Sexual Orientation Not on file Plan of Treatment Health Maintenance Due Date Last Done Comments Colorectal Cancer Screening Colonoscopy (10 Years) 1952 Hepatitis C 1970 DTaP, Tdap and Td Vaccines ( 1 - Tdap) 1971 Mammogram Screening 1992 Dexa Scan (General) 2017 Pneumococcal Vaccine: 65+ Years (1 of 1 - PCV) 2017 COVID-19 Vaccine (3 - 2023-2 5 season) 2023 05/31/2020, 05/03/2020 Influenza Adult (#1) 2024 RSV Immunization or 60+ Years (1 - 1-dose 75+ series) 2027 Zoster Vaccines Completed 09/23/2018, 02/05/2018, 08/28/2014 Meningococcal Vaccine Aged Out No luis miguel nataly eligible based on patient's age to complete this topic RSV Immunizations Under 20 Months Aged Out No longer eligible b ased on patient's age to complete this topic
--- OUTSIDE RECORDS SUMMARY | 2024-04-15 23:01 | XMS_ITS | Encounter Summary ---
Author Organization [facility] Healthcare Address [address] [place] [address] Care Team Providers Care Plant Hr Manager Name Role Phone Anne Villatoro MD Primary Care Provider [phone] González Moser OD Unavailable [phone] Carlos Antony MD Unavailable [phone] Esha Madrid MD Unavailable + [phone] Margarito Torre MD Unavailable [phone] Encounter Details Date Type Department Care Team (Late st Contact Info) Description 09/23/2023 Telephone [facility] Medical Group Primary Care [address] [address] Anne Villatoro MD [facility] [address] Social History Tobacco Use Types [...] on file 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 Patient is just concerned with her trigs raising upso may points. She does not want to go on meds but is wondering if doing protein powder in her smoothies with low fat yogurt and fruit is a cause? Then she was wondering if Tumeric would be good to take. Please advise? * Telephone Encounter - Fifi Edge MA - 09/23/2023 3:07 PM CDT ----- Message from Anne Villatoro MD sent at 09/22/2023 6:54 PM CDT ----- Please call the patient regarding her abnormal result. Cholesterol again remains high. Remainder oflabs. About the same as last year. Thyroid function is normal vitamin-D is also normal range. Repeat these documented in this encounter Plan of Treatment Scheduled Orders Name Type Priority Associated Diagnoses Orde r Schedule Vitamin D 25 hydroxy Lab Routine Hypertension, essential Family history of early CAD Elevated cholesterol with elevated triglycerides Low bone mass Expected: 08/05/2024 (Approximate), Expires: 09/22/2024 Lipid panel Lab Routine Hypertension, essential Family history of early CAD Elevated cholesterol with elevated triglycerides Low bone mass Expected: 08/05/2024 (Approximate), Expires: 09/22/2024 Thyroid Function [place] Lab Routine Hypertension, essential Family history of early CAD Elevated cholesterol with elevated triglycerides Low bone mass Expected: 08/05/2024 (Approximate), Expires: 09/22/2024 Comprehensive metabolic panel Lab Routine Hypertension, essential Family history of early CAD Elevated cholesterol with elevated triglycerides Low bone mass Expected: 08/05/2024 (Approximate), Expires: 09/22/2024 CBC with auto differential Lab Routine Hypertension, essential Family history of early CAD Elevated cholesterol with elevated triglycerides Low bone mass Expected: 08/05/2024 (Approximate), Expires: 09/22/2024 documented as of this encounter Visit Diagnoses Diagnosis Hypertension, essential- Primary Unspecified essential hypertension Family history of early CAD Family history of ischemic heart disease Elevated cholesterol with elevated triglycerides Mixed hyperlipidemia Low bone mass documented in this encounter Care Teams Plant Hr Manager Relationship Specialty Start Date End Date Anne Villatoro MD [facility] [address] PCP - General Internal Medicine 11/09/18 González Moser OD [address] [place] [address] Ophthalmology 04/10/20 Carlos Antony MD [address] [place] [address] Dermatology 01/12/21 Esha Madrid MD [address] [facility] [address] [place] [address] Consulting Physician Interventional Cardiology 08/05/22 Margarito Torre MD [address] [facility] [facility] [place] [address] Referring Physician Dermatology 08/05/22 documented as of this encounter
--- OUTSIDE RECORDS SUMMARY | 2024-04-15 23:01 | XMS_ITS | Encounter Summary ---
Author Organization [facility] Healthcare Address [address] [place] [address] Care Team Providers Care Pipeline Dispatch Operator Name Role Phone Anne Villatoro MD Primary Care Provider [phone] González Moser OD Unavailable [phone] Carlos Antony MD Unavailable [phone] Esha Madrid MD Unavailable + [phone] Margarito Torre MD Unavailable [phone] Reason for Visit * Reason Comments Follow-up Annual f/u Hypertension Encounter Details Date Type Department Care Team (Late st Contact Info) Description 06/23/2023 9:00 AM CDT Office Visit [facility] Medical Group Cardiology [address] [facility] [address] [place] [address] Esha Madrid MD [address] [place] [address] Hypertension, essential (Primary Dx); Family history of early CAD Social History Tobacco Use Types Packs/Day Years [...] points, staff should administer the PHQ-9) 0 08/05/2022 Comments No Sex and Gender Information Value Date Recorded Sex Assigned at Not on file 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 Gender Identity Not on file Sexual Orientation Not on file documented as of this encounter Last Filed Vital Signs Vital Sign Reading Time Taken Comments Blood Pressure 120/70 06/23/2023 8:52 AM CDT Pulse 79 06/23/2023 8:52 AM CDT Temperature - - Respiratory Rate - - Oxygen Saturation 95% 06/23/2023 8:52 AM CDT Inhaled Oxygen Concentration - - Weight 59.3 kg (130 lb 12.8 oz) 06/23/2023 8:52 AM CDT Height 154.9 cm (5' 1 ) 06/23/2023 8:52 AM CDT Body Mass Index 24.71 06/23/2023 8:52 AM CDT documented in this encounter Progress Notes * Esha Madrid MD - 06/23/2023 9:00 AM CDT [facility] CARDIOLOGY DATE OF VISIT: 06/23/2023 CHIEF COMPLAINT Chief Complaint Patient presents with ??? Follow-up Annual f/u ??? Hypertension HPI Lucy Mcallister is a 73 y.o. female with past medical history of hypertension, hyperlipidemia, GERD who was referred to our office for evaluation for family history of CAD and hypertension. She states that her sister had 2 stents and brother had stroke. Never smoked cigarettes and drinks alcohol on occasions. She does get episodes of epigastric heartburn. One time she woke up with upper abdominal discomfort and last for about 10 minutes. Denies shortness of breath, lower extremity edema dizziness or syncope. She states that blood pressure was high a couple months ago and much improved after started on amlodipine. She does walk 3-4 miles per day 5 times per week and denies exertional chest pain. 06/23/2023-returns for follow-up appointment. Denies chest pain, shortness of breath, dizziness, orsyncope palpitations. She is planning to start back walking. She mentioned that some days when she eats salty things her blood pressure goes high. MEDICAL HISTORY Past Medical History: Diagnosis Date ??? Acid indigestion ??? Hyperlipidemia ??? Hypertension 04/24/22 ??? Persistent insomnia Past Surgical History: Procedure Laterality Date ??? CATARACT EXTRACTION 05/2021 ??? CATARACT EXTRACTION, BILATERAL Bilateral 05/2021 Dr Sarabjit Rene, 05/2021 and 06/2021 ??? TUBAL LIGATION Social History Tobacco Use ??? Smoking status: Never ??? Smokeless tobacco: Never Substance and Sexual Activity ??? Drug use: Never ??? Sexual activity: Not Currently Partners: Male control/protection: Post-menopausal Alcohol Use: Not At Risk (08/05/2022) AUDIT-C ??? Frequency of Alcohol Consumption: 2-4 times a month ??? Average Number of Drinks: 1 or 2 ??? Frequency of Binge Drinking: Never Family History Problem Relation Age of Onset ??? Colon cancer Mother ??? Macular degeneration Mother ??? Cancer Mother ??? COPD Mother ??? Heart attack Father ??? Alcohol abuse Father ??? Heart disease Father ??? Heart disease Sister ??? Macular degeneration Brother ??? Stroke Brother 55 ??? Hypertension Brother MEDICATIONS Current Outpatient Medications Medication Sig Dispense Refill ??? amLODIPine (NORVASC) 5 mg tablet Take 1 tablet (5 mg total) by mouth daily 30 tablet 1 ??? ASCORBIC ACID-ASCORBATE CALC ORAL 500 mg daily ??? calcium carbonate/vitamin D3 (CALCIUM 500 + D ORAL) 600 mg daily ??? cholecalciferol, vitamin D3, (CHOLECALCIFEROL, VIT D3,,BULK, MISC) 1,000 Units daily ??? cyanocobalamin (Vitamin B-12) 1,000 mcg tablet daily ??? magnesium gluconate 200 mg tablet 200 mg ??? melatonin tablet 3 mg daily ??? multivitamin capsule Take 1 capsule by mouth daily ??? traZODone (DESYREL) 50 mg tablet Take 1 tablet (50 mg total) by mouth nightly (Patient taking differently: Take 50 mg by mouth as needed) 45 tablet 1 ??? vit C,S-Cn-ukuup-lutein-zeaxan [id number] dr-tosy-pp-mg capsule Take 1 tablet by mouth daily No current facility-administered medications for this visit. ALLERGIES No Known Allergies REVIEW OF SYSTEMS Review of Systems Constitutional: Negative for chills, fever and malaise/fatigue. HENT: Negative for congestion and sore throat. Eyes: Negative for blurred vision and double vision. Cardiovascular: Negative for chest pain, claudication, dyspnea on exertion, leg swelling, near-syncope, orthopnea, palpitations, paroxysmal nocturnal dyspnea and syncope. Respiratory: Negative for cough, hemoptysis, shortness of breath, snoring, sputum production and wheezing. Endocrine: Negative for cold intolerance and polyuria. Hematologic/Lymphatic: Negative for bleeding problem. Does not bruise/bleed easily. Skin: Negative for itching and rash. Musculoskeletal: Negative for back pain, joint pain and joint swelling. Gastrointestinal: Positive for heartburn. Negative for abdominal pain, diarrhea, nausea and vomiting. Genitourinary: Negative for dysuria, frequency and hematuria. Neurological: Negative for focal weakness, headaches and light-headedness. Psychiatric/Behavioral: Negative for depression. The patient is not nervous/anxious. Allergic/Immunologic: Negative for environmental allergies and hives. PHYSICAL EXAM Vitals BP 120/70 (BP Location: Right arm, Patient Position: Sitting) Pulse 79 Ht 154.9 cm (5' 1 ) Wt 59.3 kg (130 lb 12.8 oz) SpO2 95% BMI 24.71 kg/m?? Body mass index is 24.71 kg/m??. Physical Exam Constitutional: General: She is not in acute distress. Appearance: She is well-developed. HENT: Head: Normocephalic and atraumatic. Right Ear: External ear normal. Left Ear: External ear normal. Eyes: General: No scleral icterus. Left eye: No discharge. Conjunctiva/sclera: Conjunctivae normal. Neck: Thyroid: No thyromegaly. Cardiovascular: Rate and Rhythm: Normal rate and regular rhythm. Heart sounds: Normal heart sounds. No murmur heard. No friction rub. No gallop. Pulmonary: Effort: Pulmonary effort is normal. No respiratory distress. Breath sounds: Normal breath sounds. No wheezing or rales. Chest: Chest wall: No tenderness. Abdominal: General: There is no distension. Palpations: Abdomen is soft. There is no mass. Tenderness: There is no abdominal tenderness. Musculoskeletal: General: No tenderness or deformity. Cervical back: Normal range of motion and neck supple. Right lower leg: No edema. Left lower leg: No edema. Skin: General: Skin is warm. Findings: No erythema or rash. Neurological: Mental Status: She is alert and oriented to person, place, and time. Cranial Nerves: No cranial nerve deficit. Motor: No abnormal muscle tone. Psychiatric: Mood and Affect: Mood normal. LABS AND OTHER DIAGNOSTIC TESTS Lab Results Component Value Date WBC 4.7 12/13/2022 HGB 14.5 12/13/2022 HCT 41.1 12/13/2022 MCV 101.5 (H) 12/13/2022 Chemistry Component Value Date/Time SODIUM 141 12/13/2022 0918 POTASSIUM 4.2 12/13/2022 0918 CHLORIDE 104 12/13/2022 0918 CO2 31 12/13/2022 0918 BUNSER 19 12/13/2022 0918 CREATININE 0.79 12/13/2022 0918 GLUCOSE 90 12/13/2022 0918 Component Value Date/Time CALCIUM 9.5 12/13/2022 0918 ALKPHOS 59 12/13/2022 0918 AST 25 12/13/2022 0918 ALT 23 12/13/2022 0918 BILITOT 0.5 12/13/2022 0918 Lab Results Component Value Date CHOL 253 (H) 12/13/2022 CHOL 232 (H) 10/17/2021 CHOL 235 (H) 05/08/2020 Lab Results Component Value Date HDL 68 12/13/2022 HDL 73 10/17/2021 HDL 67 05/08/2020 No results found for: LDLCALC Lab Results Component Value Date TRIG 123 12/13/2022 TRIG 97 10/17/2021 TRIG 118 05/08/2020 Lab Results Component Value Date CHOLHDL 3.7 12/13/2022 CHOLHDL 3.2 10/17/2021 CHOLHDL 3.5 05/08/2020 EKG May 01, 2022 sinus rhythm ASSESSMENT Diagnoses and all orders for this visit: Hypertension, essential (Primary) Family history of early CAD PLAN/RECOMMENDATIONS In regards to hypertension, her blood pressure appears to be controlled 120/70.. Refill amlodipine 5 mg daily. Avoid salt In regards to family history of CAD, patient denies exertional chest pain. She does admit to episodes of acid indigestion. EKG is normal. She walks 3-4 miles 5 times per week and denies exertional chest pain. Continue to monitor at this time. Offered the patient's CT calcium score but she wants to think about it. In regards to chest discomfort, feels more like acid indigestion. Given family history will recommend to perform treadmill exercise stress test to reassure the patient. Patient declined the test. In regards to history of hyperlipidemia, lipid panel done September 2022 shows LDL 160, HDL 68 triglycerides 129. Patient stated that in December she was not eating healthy. Counseling done regarding importance of heart healthy diet. She is supposed to get blood work through PCP in the next 1 month. Follow up in the office in in 1 year. Esha Madrid MD documented in this encounter Plan of Treatment Not on file documented as of this encounter Visit Diagnoses Diagnosis Hypertension, essential- Primary Unspecified essential hypertension Family history of early CAD Family history of ischemic heart disease documented in this encounter Historical Medications * This list may reflect changes made after this encounter. outylfeg-phf-ruilr us fumarate (Multi Vitamin) 9 mg iron/15 mL liquid Take by mouth added in this encounter Care Teams Pipeline Dispatch Operator Relationship Specialty Start Date End Date Anne Villatoro MD [address] [place] [id number] PCP - General Internal Medicine 11/09/18 González Moser OD [address] [place], [place] [address] Ophthalmology 04/10/20 Carlos Antony MD [address] [place] [address] Dermatology 01/12/21 Esha Madrid MD [address] [facility] [address] [place] [address] Consulting Physician Interventional Cardiology 08/05/22 Margarito Torre MD [address] [place] [address] Referring Physician Dermatology 08/05/22 documented as of this encounter
--- OUTSIDE RECORDS SUMMARY | 2024-04-15 23:01 | XMS_ITS | Encounter Summary ---
Author Organization [facility] Healthcare Address [address] [place] [address] Care Team Providers Care Ballast Regulator Operator Name Role Phone Anne Villatoro MD Primary Care Provider [phone] González Moser OD Unavailable [phone] Carlos Antony MD Unavailable [phone] Esha Madrid MD Unavailable [phone] Margarito Torre MD Unavailable [phone] Reason for Visit * Reason Onset Date Comments Symptom Based Call 01/27/2023 Encounter Details Date Type Department Care Team ([facility] st Contact Info) Description 01/27/2023 Telephone [facility] Medical Group Primary Care [address] [address] Anne Villatoro MD [facility] [address] Symptom Based Call Social History Tobacco Use Types Packs/Day Years [...] on file 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 30 tablet 01/27/2023 3 documented in this encounter Miscellaneous Notes * Telephone Encounter - Magali Aguero MA - 01/27/2023 2:36 PM CDT Pt notified * Telephone Encounter - Anne Villatoro MD - 01/27/2023 12:34 PM CDT Prescription antiviral medication sent to pharmacy. Take full course as prescribed. Hold trazodone while taking this medication. Plenty of rest. Hydrate well. Get to the ER if symptoms worsen * Telephone Encounter - Kimberley Alfaro - 01/27/2023 11:06 AM CDT Symptom Based Call Caller's Callback #: [phone] Chief Complaint(s): Body aches, headache, sore throat, cough, chills, and hot/cold Duration: Friday What type of symptom(s) is the patient experiencing? Non-Emergent. Is this a new or reoccurring symptom(s)? New What have you tried to help your symptom(s)? NA Why was appointment not scheduled? Patient refusing appointment regardless of availability. Additional Comments: Pt stated she tested positive for Covid on Friday. She wants to know if Dr. Villatoro can prescribe the medication for covid. She stated she was traveling back on a plane and [place] close by her coughing. She thinks she caught it from traveling. Does message need to be routed? Yes-Action Needed documented in this encounter Plan of Treatment Not on file documented as of this encounter Visit Diagnoses Not on filedocumented in this encounter Care Teams Ballast Regulator Operator Relationship Specialty Start Date End Date Anne Villatoro MD [address] [place] [address] PCP - General Internal Medicine 11/09/18 González Moser, ABILIO [address] [place] [address] Ophthalmology 04/10/20 Carlos Antony MD [address] [place] [address] Dermatology 01/12/21 Esha Madrid MD [address] [facility] [address], [place] [address] Consulting Physician Interventional Cardiology 08/05/22 Margarito Torre MD [address] [facility] [place] [address] Referring Physician Dermatology 08/05/22 documented as of this encounter
--- OUTSIDE RECORDS SUMMARY | 2024-04-15 23:01 | XMS_ITS | Encounter Summary ---
Author Organization [facility] Medical Group Address [address] [facility] [address] [place] [address] Care Team Providers Care Quarter Folder Name Role Phone Anne Villatoro MD Primary Care Provider + [phone] González Moser OD Unavailable [phone] Carlos Antony MD Unavailable [phone] Esha Madrid MD Unavailable + [phone] Margarito Torre MD Unavailable [phone] Encounter Details Date Type Department Care Team (Late st Contact Info) Description 12/19/2022 Orders Only [facility] Health Information Management [address] [place] [address] Scanning, Provider Social History Tobacco Use Types Packs/Day Years [...] on file 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 Gender Identity Not on file Sexual Orientation Not on file documented as of this encounter Plan of Treatment Not on file documented as of this encounter Procedures Procedure Name Priority Date/Time Associated Diagnosis Comments SCAN - PATHOLOGY 12/19/2022 documented in this encounter Results * SCAN - PATHOLOGY (12/19/2022) us Provider Scanning Final Result documented in this encounter Visit Diagnoses Not on filedocumented in this encounter Care Teams Quarter Folder Relationship Specialty Start Date End Date Anne Villatoro MD [address] [address] PCP - General Internal Medicine 11/09/18 González Moser, OD [address] [place] [address] Ophthalmology 04/10/20 Carlos Antony MD [address] [place] [address] Dermatology 01/12/21 Esha Madrid MD [address] [facility] [address] [place] [address] Consulting Physician Interventional Cardiology 08/05/22 Margarito Torre MD [address] [facility] [place] [address] Referring Physician Dermatology 08/05/22 documented as of this encounter
--- OUTSIDE RECORDS SUMMARY | 2024-04-15 23:01 | XMS_ITS | Encounter Summary ---
Author Organization [facility] Medical Group Address [address] [address] Care Team Providers Care General Labor Name Role Phone Anne Villatoro MD Primary Care Provider [phone] González Moser OD Unavailable [phone] Carlos Antony MD Unavailable [phone] Esha Madrid MD Unavailable + [phone] Margarito Torre MD Unavailable [phone] Encounter Details Date Type Department Care Team (Late st Contact Info) Description 12/19/2022 Orders Only [facility] Medical Group Primary Care [address] [address] Anne Villatoro MD [facility] [address] Hypertension, essential (Primary Dx); Abnormal TSH Social History Tobacco Use Types Packs/Day Years [...] on file 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 Gender Identity Not on file Sexual Orientation Not on file documented as of this encounter Plan of Treatment Not on file documented as of this encounter Visit Diagnoses Diagnosis Hypertension, essential- Primary Unspecified essential hypertension Abnormal TSH documented in this encounter Care Teams General Labor Relationship Specialty Start Date End Date Anne Villatoro MD [address] [place] [address] PCP - General Internal Medicine 11/09/18 González Moser, ABILIO [address] [place] [address] Ophthalmology 04/10/20 Carlos Antony MD [address] [place] [address] Dermatology 01/12/21 Esha Madrid MD [address] [facility] [address] [place] [address] Consulting Physician Interventional Cardiology 08/05/22 Margarito Torre MD [address] [facility] [place] [id number] Referring Physician Dermatology 08/05/22 documented as of this encounter
--- OUTSIDE RECORDS SUMMARY | 2024-04-15 23:01 | XMS_ITS | Encounter Summary ---
Author Organization [facility] Healthcare Address [address] [place] [address] Care Team Providers Care Electricity Trader Name Role Phone Anne Villatoro MD Primary Care Provider + [phone] González Moser OD Unavailable [phone] Carlos Antony MD Unavailable [phone] Esha Madrid MD Unavailable + [phone] Margarito Torre MD Unavailable [phone] Encounter Details Date Type Department Care Team (Late st Contact Info) Description 02/06/2023 Telephone [facility] Medical Group Cardiology [address] [place] [address] Esha Madrid MD [address] [address] Social History Tobacco Use Types Packs/Day Years [...] on file 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 * Telephone Encounter - Sheila Guevara - 02/06/2023 12:22 PM CDT Pt states she received a call from [facility] in regard to scheduling a stress test that was neverscheduled. Pt states when she talked to about it, they decided the stress test was not necessary. Contact: documented in this encounter Plan of Treatment Not on file documented as of this encounter Visit Diagnoses Not on filedocumented in this encounter Care Teams Electricity Trader Relationship Specialty Start Date End Date Anne Villatoro MD [address] [place] [id number] PCP - General Internal Medicine 11/09/18 González Moser OD [address] [place], [place] [id number] Ophthalmology 04/10/20 Carlos Antony MD [address] [place], [place] [address] Dermatology 01/12/21 Esha Madrid MD [address] [facility] [address] [facility] [place] [address] Consulting Physician Interventional Cardiology 08/05/22 Margarito Torre MD [address] [facility] [place] [address] Referring Physician Dermatology 08/05/22 documented as of this encounter
--- OUTSIDE RECORDS SUMMARY | 2024-04-15 23:01 | XMS_ITS | Encounter Summary ---
Author Organization [facility] Healthcare Address [address] [place] [address] Care Team Providers Care Supervisor Electronics Assembly Name Role Phone Anne Villatoro MD Primary Care Provider [phone] González Moser OD Unavailable [phone] Carlos Antony MD Unavailable [phone] Esha Madrid MD Unavailable [phone] Margarito Torre MD Unavailable [phone] Reason for Referral * Diagnostic Imaging (Routine) - Authorized Specialty Diagnoses / Procedures Referred By Brandie dunn Referred To Contact Diagnoses Screening mammogram for breast cancer Procedures Screening Mammogram Bilateral W Anne Thompson MD [address] [address] Phone: tel: fax: [address] [address] Referral ID Status Reason Start Date Expiration Date V isits Requested Visits Authorized [id number] Authorized 08/11/2023 09/09/2024 1 1 Reason for Visit * Reason Comments Medicare Annual Wellness Visit Subsequen t Medicare Awv Encounter Details Date Type Department Care Team ([facility] st Contact Info) Description 08/11/2023 10:30 AM CDT Office Visit [facility] Medical Group Primary Care [address] [address] Anne Villatoro MD [address] [place] [id number] Medicare annual wellness visit, subsequent (Primary Dx); Risk for falls; Screening mammogram for breast cancer; Chronic insomnia; Hypertension, essential; Family history of early CAD; Low bone mass Social History Tobacco Use Types Packs/Day Years [...] on file 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 Gender Identity Not on file Sexual Orientation Not on file documented as of this encounter Last Filed Vital Signs Vital Sign Reading Time Taken Comments Blood Pressure 114/74 08/11/2023 10:18 AM CDT Pulse 68 08/11/2023 10:18 AM CDT Temperature 36.3 ??C (97.4 ??F) 08/11/2023 10:18 AM C DT Respiratory Rate - - Oxygen Saturation 96% 08/11/2023 10:18 AM CDT Inhaled Oxygen Concentration - - Weight 58.5 kg (129 lb) 08/11/2023 10:18 AM CDT Height 154.9 cm (5' 1 ) 08/11/2023 10:18 AM CDT Body Mass Index 24.37 08/11/2023 10:18 AM CDT documented in this encounter Patient Instructions * Patient Instructions* Anne Villatoro MD - 08/11/2023 10:30 AM CDT Podcast: Chasing Life by Dr Stewart Ayala * Attachments The following attachments cannot be sent through Care Everywhere. * Fall Prevention (Service Station Cashier) (Lebanese) documented in this encounter Progress Notes * Anne Villatoro MD - 08/11/2023 10:30 AM CDT Images from the original note were not included. Patient ID: Lucy Mcallister is a 73 y.o. female. Chief Complaint Chief Complaint Patient presents with Medicare Annual Wellness Visit Subsequent Medicare Awv HPI Here for annual preventive exam. Chronic conditions reviewed. HTN, managed by Cardiology DR Mercy cmgovern family history of CAD and hypertension. She states that her sister had 2 stents and brother had stroke. Never smoked cigarettes and drinks alcohol on occasions. Most recent labs available reviewed. Maintenance and preventive screening test results reviewed and discussed. Current Weight compared to last visit's weight reviewed. Physical activity and lifestyle reviewed. OTC supplements reviewed and discussed. Lucy Mcallister is a 73 y.o. year old White Non- female here an for Annual Wellness Visit. Medicare Health Risk Assessment Basic Information In general, would you say your health is: Excellent Do you have an advance directive, such as a living will or durable power of salesperson hosiery?: (!) No Would you like information regarding Advanced Directive (Living Will) and/or Durable Power of Food Cart Attendant?: (!) Yes Do you have to strain or struggle to hear/understand conversations?: No Over the last 2 weeks, how often have you been bothered by any of the following problems? Little Interest or Pleasure in Doing Things: Not at all Feeling Down, Depressed, or Hopeless: Not at all PHQ-2 Total Score (If total score is 3 or more points, staff should administer the PHQ-9): 0 In the past year, patient experienced: One or more falls in the last year: No Safety Do you have a working smoke detector in your home?: Yes Do you always fasten your seatbelt when you are in a vehicle?: Yes What is your typical mode of transportation: Car Physical Activity How many days a week do you usually exercise?: 4-5 days per week How intense is your typical exercise?: Moderate (like brisk walking) Nutrition How would you rate your appetite?: Good How would you describe the condition of your mouth and teeth/dentures?: Good On a typical day, how many servings of fruits and vegetables do you eat?: 4 On a typical day, how many servings of high fiber/whole-grain foods do you eat?: 3 On a typical day, how many servings of high fat/fried foods do you eat?: 1 Have you experienced any of the following problems currently or recently? Eating: No Grooming: No Bathing: No Walking: No Using the toilet: No Memory problems: No Difficulty speaking: No Dressing: No Balance: No Pain: No Sexual Health: No Fatigue: No Depression: No Life Satisfaction: No Stress: No Anger: No Loneliness or Social Isolation: No Suicide: No Have you experienced any of the following problems currently or recently? Laundry and/or housekeeping: No Handling money: No Shopping: No Using the Phone: No Food preparation: No Transportation: No Taking and/or getting your own medications: No Do you use prescription drugs that are not prescribed for you?: No Based on my observation of the patient, review of Health Risk Assessment (HRA) and other records, this is my assessment and recommendation regarding fall risk, hearing impairment, home safety, ADLs, or any other issues identified in the HRA: Problem List, Past Medical and Surgical History: Patient Active Problem List Diagnosis Chronic insomnia Medicare annual wellness visit, subsequent Risk for falls Family history of colon cancer in mother History of COVID-19 Family history of macular degeneration Refused influenza vaccine Low bone mass Hypertension, essential Family history of early CAD Past Medical History: Diagnosis Date Acid indigestion Hyperlipidemia Hypertension 04/24/22 Persistent insomnia Varicella Past Surgical History: Procedure Laterality Date CATARACT EXTRACTION 05/2021 CATARACT EXTRACTION, BILATERAL Bilateral 05/2021 Dr Sarabjit Rene, 05/2021 and 06/2021 TUBAL LIGATION Family History: Family History Problem Relation Age of Onset Colon cancer Mother Macular degeneration Mother Cancer Mother COPD Mother Heart attack Father Alcohol abuse Father Heart disease Father Heart disease Sister Macular degeneration Brother Stroke Brother 55 Hypertension Brother Social History: Social History Tobacco Use Smoking status: Never Smokeless tobacco: Never Substance and Sexual Activity Drug use: Never Sexual activity: Not Currently Partners: Male control/protection: Post-menopausal Alcohol Use: Not At Risk (08/05/2022) AUDIT-C Frequency of Alcohol Consumption: 2-4 times a month Average Number of Drinks: 1 or 2 Frequency of Binge Drinking: Never Allergies: No Known Allergies Medications: Current Outpatient Medications: amLODIPine (NORVASC) 5 mg tablet, Take 1 tablet (5 mg total) by mouth daily, Disp: 90 tablet, Rfl: 3 ASCORBIC ACID-ASCORBATE CALC ORAL, 500 mg daily, Disp: , Rfl: calcium carbonate/vitamin D3 (CALCIUM 500 + D ORAL), 600 mg daily, Disp: , Rfl: cholecalciferol, vitamin D3, (CHOLECALCIFEROL, VIT D3,,BULK, MIS), 1,000 Units daily, Disp: , Rfl: cyanocobalamin (Vitamin B-12) 1,000 mcg tablet, daily, Disp: , Rfl: magnesium gluconate 200 mg tablet, 1 tablet (200 mg total), Disp: , Rfl: melatonin tablet, Take 1 tablet (3 mg total) by mouth nightly as needed, Disp: , Rfl: fusklbdz-lbs-zyoqddl fumarate (Multi Vitamin) 9 mg iron/15 mL liquid, Take by mouth, Disp: , Rfl: vit C,S-Gp-egwxg-lutein-zeaxan [phone] ip-idds-jf-mg capsule, Take 1 tablet by mouth daily, Disp: , Rfl: traZODone (DESYREL) 50 mg tablet, Take 1 tablet (50 mg total) by mouth nightly (Patient not taking:Reported on 08/11/2023), Disp: 45 tablet, Rfl: 1 Depression Screen: PHQ Screening Over the past 2 weeks, how often have you been bothered by any of the following problems? Little Interest or Pleasure in Doing Things: Not at all Feeling Down, Depressed, or Hopeless: Not at all PHQ-2 Total Score (If total score is 3 or more points, staff should administer the PHQ-9): 0 Trouble Falling or Staying Asleep, or Sleeping too Much: Not at all Feeling Tired or Having Little Energy: Not at all Poor Appetite or Overeating: Not at all Feeling Bad About Yourself - or That You are a Failure or Have Let Yourself or Your Family Down: Not at all Trouble Concentrating on Things, Such as Reading the Newspaper or Watching Television: Not at all Moving or Speaking so Slowly That Other People Could Have Noticed, or the Opposite - Being so Fidgety or Restless That You Have Been Moving Around a lot More Than Usual: Not at all Thoughts That You Would be Better off , or of Hurting Yourself in Some Way: Not at all PHQ-9 Total Score: 0 Vitals: Vitals BP 114/74 (BP Location: Right arm, Patient Position: Sitting) Pulse 68 Temp 36.3 ??C (97.4 ??F) (Temporal) Ht 154.9 cm (5' 1 ) Wt 58.5 kg (129 lb) SpO2 96% BMI 24.37 kg/m?? Body mass index is 24.37 kg/m??. Exam: Physical Exam Vitals and nursing note reviewed. Constitutional: General: She is not in acute distress. Appearance: Normal appearance. She is well-developed. HENT: Head: Normocephalic and atraumatic. Right Ear: Tympanic membrane normal. Left Ear: Tympanic membrane normal. Nose: Nose normal. Eyes: General: No scleral icterus. Extraocular Movements: Extraocular movements intact. Conjunctiva/sclera: Conjunctivae normal. Pupils: Pupils are equal, round, and reactive to light. Neck: Thyroid: No thyromegaly. Vascular: No carotid bruit. Cardiovascular: Rate and Rhythm: Normal rate and regular rhythm. Pulses: Normal pulses. Heart sounds: Normal heart sounds. No murmur heard. Pulmonary: Effort: Pulmonary effort is normal. Breath sounds: Normal breath sounds. Abdominal: General: Bowel sounds are normal. Palpations: Abdomen is soft. Tenderness: There is no abdominal tenderness. Musculoskeletal: General: No deformity. Normal range of motion. Cervical back: Normal range of motion and neck supple. Right lower leg: No edema. Left lower leg: No edema. Lymphadenopathy: Cervical: No cervical adenopathy. Skin: General: Skin is warm and dry. Neurological: General: No focal deficit present. Mental Status: She is alert and oriented to person, place, and time. Psychiatric: Mood and Affect: Mood normal. Behavior: Behavior normal. Judgment: Judgment normal. Care Team Providers: Patient Care Team: Anne Villatoro MD as PCP - General (Internal Medicine) González Moser OD (Ophthalmology) Carlos Atnony MD (Dermatology) Esha Madrid MD as Consulting Physician (Interventional Cardiology) Margarito Torre MD as Referring Physician (Dermatology) Primary Pharmacy/DME suppliers: [facility] - [place], [place] - [address] [facility] [address] [facility] [address] I reviewed the patient???s home and community safety, including driving, and made the following recommendations . Detection of Cognitive Impairment: The patient does not have cognitive impairment based on direct observation, discussion with patientor family, or review of medical records. Health Maintenance: Health Maintenance Topics with due status: Overdue Topic Date Due Hepatitis B Screening Never done Covid-19 Vaccine 12/13/2022 Colon Cancer Screening-Colonoscopy 04/28/2023 Osteoporosis Screening-Bone Density Scan 06/05/2023 Health Maintenance Topics with due status: Due On Topic Date Due Breast Cancer Screening-Mammogram 07/13/2023 Health Maintenance Topics with due status: Not Due Topic Last Completion Date DTaP/Tdap/Td Vaccine 10/07/2016 Fall Risk Assessment 08/11/2023 Depression Screening-PHQ 08/11/2023 Well Visit 65+ 08/11/2023 Health Maintenance Topics with due status: Completed Topic Last Completion Date Zoster Vaccine 09/23/2018 Pneumococcal vaccine 65+ 04/10/2020 Hepatitis C Screening 05/08/2020 Health Maintenance Topics with due status: Discontinued Topic Date Due Colon Cancer Screening-DNA Stool Discontinued Colon Cancer Screening-CT Colonography Discontinued Colon Cancer Screening-FIT Discontinued Colon Cancer Screening-Sigmoidoscopy Discontinued Influenza Vaccine Discontinued Counseling and Referral of Preventative Services: None needed Lifestyle Recommendations: cont healthy lifestyle Advanced Directive Durable Power of Food Cart Attendant: No Living Will: No Assessment and Plan: Diagnoses and all orders for this visit: Medicare annual wellness visit, subsequent (Primary) Assessment & Plan: Cont mvi daily, and daily b12 Reviewed [...] and establishing or updating healthcare power of salesperson hosiery document and providing our office with a copy. Risk for falls Assessment & Plan: Patient at risk for falls due to age and co morbidities. Fall prevention discussed c patient in detail. Exercises for balance and coordination, keep LE muslces toned and strong. Screening mammogram for breast cancer Chronic insomnia Assessment & Plan: Rarely uses the trazodone for sleep, prn Cont otc Melatonin prn Cont otc Magnesium nightly, by [employer] it is helping Ff up 1 yr for annual [facility] Colonoscopy results from 2020, Dr Jensen, [facility] Labs due: cbc, cmp, TSH, Lipids Patient here for annual Medicare wellness visit and for review of complete medical problem list. All the elements of the plan were completed as outlined by CMS. A copy of the prevention plan was given to the patient. I reviewed Medicare Wellness Questionnaire (other physicians involved in care, depression screen, advanced directives), cognitive/memory, and functional assessment. I reviewed and updated the complete problem list, medication list, family history, and immunization records with the patient. I provided preventive counseling and early detection interventions to the patient through health maintenance update and summary of today's office visit. Anne Villatoro MD documented in this encounter Miscellaneous Notes * Result Encounter Note - Anne Villatoro MD - 09/22/2023 6:54 PM CDT Please call the patient regarding her abnormal result. Cholesterol again remains high. Remainder of labs. About the same as last year. Thyroid function is normal vitamin-D is also normal range. Repeat these * Assessment & Plan Note - Anne Villatoro MD - 08/11/2023 11:08 AM CDT Associated Problem(s): Chronic insomnia Rarely uses the trazodone for sleep, prn Cont otc Melatonin prn Cont otc Magnesium nightly, by [employer] it is helping * Addendum Note - Sorensen, Jhon J., MA - 08/11/2023 10:30 AM CDTAddended by: JHON SORENSEN on: 08/12/2023 08:37 AM Modules accepted: Orders * Assessment & Plan Note - Anne Villatoro MD - 08/11/2023 9:52 AM CDT Associated Problem(s): Family history of colon cancer in mother 2020 last colonoscopy, no polyps , Dr. Jensen Patient goes every five years due to family history * Assessment & Plan Note - Anne Villatoro MD - 08/11/2023 9:47 AM CDT Associated Problem(s): Risk for falls Patient at risk for falls due to age and co morbidities. Fall prevention discussed c patient in detail. Exercises for balance and coordination, keep LE muslces toned and strong. * Assessment & Plan Note - Anne Villatoro MD - 08/11/2023 9:47 AM CDT Associated Problem(s): Medicare annual wellness visit, subsequent Cont mvi daily, and daily b12 Reviewed [...] and establishing or updating healthcare power of salesperson hosiery document and providing our office with a copy. documented in this encounter Plan of Treatment Scheduled Orders Name Type Priority Associated Diagnoses Orde r Schedule Screening Mammogram Bilateral W Bob Imaging Schedule Routine, Read Routine (OP Routine) Screening mammogram for breast cancer Expected: 08/11/2023, Expires: 10/10/2024 documented as of this encounter Procedures Procedure Name Priority Date/Time Associated Diagnosis Comments THYROID FUNCTION CASCADE Routine 09/16/2023 8:43 AM CDT Medicare annual wellness visit, subsequent Hypertension, essential Family history of early CAD CBC WITH AUTO DIFFERENTIAL Routine 09/16/2023 8:43 AM CDT Medicare annual wellness visit, subsequent Hypertension, essential Family history of early CAD VITAMIN D 25 HYDROXY Routine 09/16/2023 8:43 AM CDT Medicare annual wellness visit, subsequent Hypertension, essential Family history of early CAD Low bone mass LIPID PANEL Routine 09/16/2023 8:43 AM CDT Medicare annual wellness visit, subsequent Hypertension, essential Family history of early CAD COMPREHENSIVE METABOLIC PANEL Routine 09/16/2023 8:43 AM CDT Medicare annual wellness visit, subsequent Hypertension, essential Family history of early CAD documented in this encounter Results * Vitamin D 25 hydroxy (09/16/2023 8:43 AM CDT) Pathologist [facility] Vitamin D 25-OH 42 30 - 100 ng/mL [employer] Comment: Vitamin D Status ? 25-OH Vitamin D: Deficiency: ?<20 ng/mL Insufficiency: ? 20 - 29 ng/mL Optimal: ? > or = 30 ng/mL For 25-OH Vitamin D testing on patients on D2-supplementation and patients for whom quantitation of D2 and D3 fractions is required, the [employer]() 25-OH VIT D, (D2,D3), LC/MS/MS is recommended: order code [id number] (patients >2yrs). See Note 1 Note 1 For additional information, please refer to http://education.[employer].Glassdoor/faq/JSK126 (This link is being provided for informational/ educational purposes only.) Blood 09/16/2023 8:43 AM CDT 09/16/2023 8:44 AM CDT Narrative [facility] - 09/18/2023 1:40 AM CDT FASTING:YES FASTING: YES us Anne Villatoro MD LAB BLOOD ORDERABLES Final R esult [facility] [address] [facility] [place] [phone] * (ABNORMAL) Lipid panel (09/16/2023 8:43 AM CDT) Cholesterol 259(H) <200 mg/dL [facility] HDL 71 > OR = 50 mg/dL [facility] Triglycerides 162(H) <150 mg/dL [facility] LDL 158(H) mg/dL (calc) [facility] Comment: Reference range: <100 Desirable range <100 mg/dL for primary prevention; ?? <70 mg/dL for patients with CHD or diabetic patients with > or = 2 CHD risk factors. LDL-C is now calculated using the Javier-Gregorio calculation, which is a validated novel method providing better accuracy than the Friedewald equation in the estimation of LDL-C. Javier SS et al. DEMIAN. 2013;310(19): 1373-8216 (http://education.[employer].Glassdoor/faq/LMR092) Chol/HDL ratio 3.6 <5.0 (calc) [facility] Non-HDL, (LDL+VLDL) 188(H) <130 mg/dL (calc) [facility] Comment: For patients with diabetes plus 1 major ASCVD risk factor, treating to a non-HDL-C goal of <100 mg/dL (LDL-C of <70 mg/dL) is considered a therapeutic option. Blood 09/16/2023 8:43 AM CDT 09/16/2023 8:44 AM CDT Narrative [facility] - 09/18/2023 1:40 AM CDT FASTING:YES FASTING: YES Anne Villatoro MD LAB BLOOD ORDERABLES Final R esult Performing Organization Address City/[facility] Co de Phone Number [facility] [address] [facility] [place] [address] * Thyroid Function Wilkinson (09/16/2023 8:43 AM CDT) Pathologist [facility] TSH 3.49 0.40 - 4.50 mIU/L [facility] Blood 09/16/2023 8:43 AM CDT 09/16/2023 8:44 AM CDT Narrative [facility] - 09/18/2023 1:40 AM CDT FASTING:YES FASTING: YES Anne Villatoro MD LAB BLOOD ORDERABLES Final R [facility] Performing Organization Address [facility] de Phone Number [facility] [address] [place] [address] * Comprehensive metabolic panel (09/16/2023 8:43 AM CDT) Pathologist [facility] Glucose 92 65 - 99 mg/dL [facility] Comment: ? Fasting reference interval BUN 19 7 - 25 mg/dL [facility] Creatinine 0.74 0.60 - 1.00 mg/dL [facility] eGFR 86 > OR = 60 mL/min/1.7 3m2 [facility] BUN/creat ratio SEE NOTE: 6 - 22 (calc) [facility] Comment: ?? Not Reported: BUN and Creatinine are within ?? reference range. ? Sodium 140 135 - 146 mmol/L [facility] Potassium, pl 4.2 3.5 - 5.3 mmol/L [facility] Chloride 103 98 - 110 mmol/L [facility] CO2 29 20 - 32 mmol/L [facility] Calcium 9.5 8.6 - 10.4 mg/dL [facility] Protein, sr 6.7 6.1 - 8.1 g/dL [facility] Albumin 4.5 3.6 - 5.1 g/dL [facility] GLOBULIN 2.2 1.9 - 3.7 g/dL (calc) [facility] Alb/glob ratio 2.0 1.0 - 2.5 (calc) [facility] Bilirubin, total 0.5 0.2 - 1.2 mg/dL [facility] Alk phos 60 37 - 153 U/L [facility] AST 19 10 - 35 U/L [facility] ALT (SGPT) 16 6 - 29 U/L [facility] Blood 09/16/2023 8:43 AM CDT 09/16/2023 8:44 AM CDT Narrative [facility] - 09/18/2023 1:40 AM CDT FASTING:YES FASTING: YES us Anne Villatoro MD LAB BLOOD ORDERABLES Final R esult [facility] [address] [place] [address] * (ABNORMAL) CBC with auto differential (09/16/2023 8:43 AM CDT) WBC 4.3 3.8 - 10.8 Thousand/u L [facility] RBC, POC 4.19 3.80 - 5.10 Million/uL [facility] Hgb 15.0 11.7 - 15.5 g/dL [facility] Hct 43.4 35.0 - 45.0 % [facility] MCV 103.6(H) 80.0 - 100.0 fL [facility] MCH 35.8(H) 27.0 - 33.0 pg [facility] MCHC 34.6 32.0 - 36.0 g/dL [facility] Rdw 11.8 11.0 - 15.0 % [facility] Platelets 246 140 - 400 Thousand/u L [facility] MPV 11.1 7.5 - 12.5 fL [facility] Neutrophils, abs 2,025 1,500 - 7,800 cells/uL [facility] Lymphocytes, abs 1,673 850 - 3,900 cells/uL [facility] Monocyte abs 499 200 - 950 cells/uL [facility] Eosinophils, abs 52 15 - 500 cells/uL [facility] Basophils, abs 52 0 - 200 cells/uL [facility] Neutrophils 47.1 % [facility] Lymphocyte pct 38.9 % [facility] Monocytes 11.6 % [facility] Eosinophils 1.2 % [facility] Basophils 1.2 % [facility] Blood 09/16/2023 8:43 AM CDT 09/16/2023 8:44 AM CDT Narrative [facility] - 09/18/2023 1:40 AM CDT FASTING:YES FASTING: YES us Anne Villatoro MD LAB BLOOD ORDERABLES Final R esult [facility] [address] [place] [address] documented in this encounter Visit Diagnoses Diagnosis Medicare annual wellness visit, subsequent- Primary Risk for falls Screening mammogram for breast cancer Chronic insomnia Insomnia, unspecified Hypertension, essential Unspecified essential hypertension Family history of early CAD Family history of ischemic heart disease Low bone mass documented in this encounter Discontinued Medications Medication Sig Discontinue Reason Start Date End Da te multivitamin capsule Take 1 capsule by mouth daily Duplicate order 08/11/2023 documented as of this encounter Care Teams Supervisor Electronics Assembly Relationship Specialty Start Date End Date Anne Villatoro MD [address] [place] [id number] PCP - General Internal Medicine 11/09/18 González Moser OD [address] [place] [id number] Ophthalmology 04/10/20 Carlos Antony MD [address] [place] [address] Dermatology 01/12/21 Esha Madrid MD [address] [address] Consulting Physician Interventional Cardiology 08/05/22 Margarito Torre MD [address] [address] Referring Physician Dermatology 08/05/22 documented as of this encounter
--- OUTSIDE RECORDS SUMMARY | 2024-04-15 23:01 | XMS_ITS | Encounter Summary ---
Author Organization [facility] Healthcare Address [address] [place] [address] Care Team Providers Care Stockroom Associate Name Role Phone Anne Villatoro MD Primary Care Provider [phone] González Moser OD Unavailable [phone] Carlos Antony MD Unavailable [phone] Esha Madrid MD Unavailable [phone] Margarito Torre MD Unavailable [phone] Reason for Visit * Reason Onset Date Comments Symptom Based Call 12/23/2023 Encounter Details Date Type Department Care Team ([facility] st Contact Info) Description 12/23/2023 Telephone [facility] Medical Group Primary Care [address] [phone] Anne Villatoro MD [facility] [address] Symptom Based Call Social History [...] on file 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 Gender Identity Not on file Sexual Orientation Not on file documented as of this encounter Ordered Prescriptions Prescription Sig Dispense Quantity Refills Last Filled Start Date End Date valACYclovir (VALTREX) 1 gram tablet Take 2 tabs (2000 mg) 2 times a days for 1 day prn fever blisters 4 tablet 5 12/23/2023 documented in this encounter Miscellaneous Notes * Telephone Encounter - Anne Villatoro MD - 12/23/2023 1:47 PM CDT Rx sent * Telephone Encounter - Lee Stone MA - 12/23/2023 1:20 PM CDT Please advise * Telephone Encounter - Terra Alaniz - 12/23/2023 12:58 PM CDT Symptom Based Call Chief Complaint(s): fever blister on lip Duration: NA What type of symptom(s) is the patient experiencing? Non-Emergent. Is this a new or reoccurring symptom(s)? reoccurring What have you tried to help your symptom(s)? NA Why was appointment not scheduled? Requesting advice from clinical environmental field team member. 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 Requesting prescription (Valtrex) [facility]. 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 She thinks this is caused by stress of granddaughter's wedding this coming weekend and being in the sun. Please advice. Does message need to be routed? Yes-Action Needed documented in this encounter Plan of Treatment Not on file documented as of this encounter Visit Diagnoses Not on filedocumented in this encounter Care Teams Stockroom Associate Relationship Specialty Start Date End Date Anne Villatoro MD [facility] [address] PCP - General Internal Medicine 11/09/18 González Moser, OD [address] [place] [address] Ophthalmology 04/10/20 Carlos Antony MD [address] [place] [address] Dermatology 01/12/21 Esha Madrid MD [address] [facility] [address] [place] [address] Consulting Physician Interventional Cardiology 08/05/22 Margarito Torre MD [address] [facility] [place] [address] Referring Physician Dermatology 08/05/22 documented as of this encounter
--- OUTSIDE RECORDS SUMMARY | 2024-04-15 23:01 | XMS_ITS | Encounter Summary ---
Author Organization [facility] Healthcare Address [address] [place] [address] Care Team Providers Care Inspector Plating Name Role Phone Anne Villatoro MD Primary Care Provider [phone] González Moser OD Unavailable [phone] Carlos Antony MD Unavailable [phone] Esha Madrid MD Unavailable + [phone] Margarito Torre MD Unavailable [phone] Encounter Details Date Type Department Care Team (Late st Contact Info) Description 08/19/2023 Telephone [facility] Primary Care [address] [phone] Anne Villatoro MD [address] [address] Social History Tobacco Use Types [...] on file 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 Gender Identity Not on file Sexual Orientation Not on file documented as of this encounter Miscellaneous Notes * Telephone Encounter - Fifi Edge MA - 08/19/2023 10:14 AM CDT Chart Updated - Colonoscopy- [facility] documented in this encounter Plan of Treatment Not on file documented as of this encounter Procedures Procedure Name Priority Date/Time Associated Diagnosis Comments COLONOSCOPY Routine 06/26/2020 documented in this encounter Results * COLONOSCOPY (06/26/2020) Scribed Colonoscopy Normal Historical Provider HEALTH MAINTENANCE Final Result documented in this encounter Visit Diagnoses Not on filedocumented in this encounter Care Teams Inspector Plating Relationship Specialty Start Date End Date Anne Villatoro MD [address] [place] [address] PCP - General Internal Medicine 11/09/18 González Moser, ABILIO [address] [place] [address] Ophthalmology 04/10/20 Carlos Antony MD [address] [place] [address] Dermatology 01/12/21 Esha Madrid MD 1225 [facility] [address] [place] [address] Consulting Physician Interventional Cardiology 08/05/22 Margarito Torre MD [address] [facility] [place] [address] Referring Physician Dermatology 08/05/22 documented as of this encounter
--- OUTSIDE RECORDS SUMMARY | 2024-04-15 23:01 | XMS_ITS | Encounter Summary ---
Author Organization [facility] Medical Group Address [address] [address] Care Team Providers Care Manager Truck Name Role Phone Anne Villatoro MD Primary Care Provider [phone] González Moser OD Unavailable [phone] Carlos Antony MD Unavailable [phone] Esha Madrid MD Unavailable + [phone] Margarito Torre MD Unavailable [phone] Encounter Details Date Type Department Care Team (Late st Contact Info) Description 12/24/2022 Orders Only [facility] Medical [facility] Primary Care [address] [phone] Anne Villatoro MD [facility] [address] Hypertension, essential (Primary Dx); Hair loss Social History Tobacco Use Types Packs/Day Years [...] on file 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 Repeat thyroid study shows TSH is back to normal range. Not concerning. Free thyroid hormone is also normal documented in this encounter Plan of Treatment Not on file documented as of this encounter Procedures Procedure Name Priority Date/Time Associated Diagnosis Comments TSH Routine 12/24/2022 9:54 AM CDT Hypertension, essential Hair loss T4, FREE Routine 12/24/2022 9:54 AM CDT Hypertension, essential Hair loss documented in this encounter Results * T4, free (12/24/2022 9:54 AM CDT) Free T4 1.1 0.8 - 1.8 ng/dL [facility] Blood 12/24/2022 9:54 AM CDT 12/24/2022 9:55 AM CDT us Anne Villatoro MD LAB BLOOD ORDERABLES Final R esult [facility] [address] [id number] * TSH (12/24/2022 9:54 AM CDT) TSH 3.00 0.40 - 4.50 mIU/L [facility] Blood 12/24/2022 9:54 AM CDT 12/24/2022 9:55 AM CDT us Anne Villatoro MD LAB BLOOD ORDERABLES Final R esult [facility] [address] [place] [address] documented in this encounter Visit Diagnoses Diagnosis Hypertension, essential- Primary Unspecified essential hypertension Hair loss Unspecified alopecia documented in this encounter Care Teams Manager Truck Relationship Specialty Start Date End Date Anne Villatoro MD [address] [address] PCP - General Internal Medicine 11/09/18 González Moser, OD [address] [place] [address] Ophthalmology 04/10/20 Carlos Antony MD [address] [place] [address] Dermatology 01/12/21 Esha Madrid MD [address] [facility] [address] [place] [address] Consulting Physician Interventional Cardiology 08/05/22 Margarito Torre MD [address] [facility] [place] [address] Referring Physician Dermatology 08/05/22 documented as of this encounter
--- OUTSIDE RECORDS SUMMARY | 2024-04-15 23:02 | XMS_ITS | Encounter Summary ---
Author Organization [facility] Address [address] [address] Care Team Providers Care Inspector Welded Parts Name Role Phone Anne Villatoro MD Primary Care Provider + [phone] James Peraza MD Unavailable + [phone] González Moser OD Unavailable [phone] Carlos Antony MD Unavailable [phone] Reason for Visit * Reason Comments Medicare Annual Wellness Visit Subsequen t Follow up Chronic Conditions Encounter Details Date Type Department Care Team (Late st Contact Info) Description 07/30/2021 3:00 PM CDT Office Visit [facility] Primary Care [address] [phone] Anne Villatoro MD [facility] [address] Medicare annual wellness visit, subsequent (Primary Dx); Risk for falls; Family history of colon cancer in mother; Family history of macular degeneration Social History Tobacco Use Types Packs/Day Years Used Date Smoking Tobacco: Never Smokeless Tobacco: Never Alcohol Use Standard Drinks/Week Comments Yes 0 (1 standard drink = 0.6 oz pur e alcohol) AUDIT-C Answer Date Recorded Frequency of Alcohol Consumption Monthly or less 11/16/2019 Average Number of Drinks Not on file 020 Frequency of Binge Drinking Not on file 07/2019 PHQ-2 Answer Date Recorded PHQ-2 Total Score (If total score is 3 or more points, staff should administer the PHQ-9) 0 07/30/2021 Comments Unknown Sex and Gender Information Value Date Recorded Sex Assigned at Not on file 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 Gender Identity Not on file Sexual Orientation Not on file documented as of this encounter Last Filed Vital Signs Vital Sign Reading Time Taken Comments Blood Pressure 122/70 07/30/2021 2:50 PM CDT Pulse 70 07/30/2021 2:50 PM CDT Temperature 36.4 ??C (97.6 ??F) 07/30/2021 2:50 PM CD T Respiratory Rate - - Oxygen Saturation 96% 07/30/2021 2:50 PM CDT Inhaled Oxygen Concentration - - Weight 61.1 kg (134 lb 12.8 oz) 07/30/2021 2:50 PM CDT Height 154.9 cm (5' 1 ) 07/30/2021 2:50 PM CDT Body Mass Index 25.47 07/30/2021 2:50 PM CDT documented in this encounter Patient Instructions * Patient Instructions* Anne Villatoro MD - 07/30/2021 3:00 PM CDT Images from the original note were not included. Patient Education Fall Prevention RADIO INTERFERENCE INVESTIGATOR: Fall prevention includes ways to make your home and other areas safer. It also includes ways you can move more carefully to prevent a fall. Health conditions that cause changes in your blood pressure, vision, or muscle strength and coordination may increase your risk for falls. Medicines may also increase your risk for falls if they make you dizzy, weak, or sleepy. Call 911 or have someone else call if: ?? You have fallen and are unconscious. ?? You have fallen and cannot move part of your body. Contact your healthcare provider if: ?? You have fallen and have pain or a headache. ?? You have questions or concerns about your condition or care. Fall prevention tips: ?? Stand or sit up slowly. This may help you keep your balance and prevent falls. ?? Use assistive devices as directed. Your healthcare provider may suggest that you use a cane or walker to help you keep your balance. You may need to have grab bars put in your bathroom near the toilet or in the shower. ?? Wear shoes that fit well and have soles that it sales executive. Wear shoes both inside and outside. Use slippers with good it sales executive. Do not wear shoes with high heels. ?? Wear a personal alarm. This is a device that allows you to call 911 if you fall and need help. Ask your healthcare provider for more information. ?? Stay active. Exercise can help strengthen your muscles and improve your balance. Your healthcareprovider may recommend water aerobics or walking. He or she may also recommend physical therapy to improve your coordination. Never start an exercise program without talking to your healthcare provider first. ?? Manage your medical conditions. Keep all appointments with your healthcare providers. Visit youreye doctor as directed. Home safety tips: ?? Add items to prevent falls in the bathroom. Put nonslip strips on your bath or shower floor to prevent you from slipping. Use a bath mat if you do not have carpet in the bathroom. This will prevent you from falling when you step out of the bath or shower. Use a shower seat so you do not need to stand while you shower. Sit on the toilet or a chair in your bathroom to dry yourself and put on clothing. This will prevent you from losing your balance from drying or dressing yourself while you arestanding. ?? Keep paths clear. Remove books, shoes, and other objects from walkways and stairs. Place cords for telephones and lamps out of the way so that you do not need to walk over them. Tape them down if you cannot move them. Remove small rugs. If you cannot remove a rug, secure it with double-sided tape. This will prevent you from tripping. ?? Install bright lights in your home. Use night lights to help light paths to the bathroom or kitchen. Always turn on the light before you start walking. ?? Keep items you use often on shelves within reach. Do not use a step stool to help you reach an item. ?? [place] or place reflective tape on the edges of your stairs. This will help you see the stairs better. Follow up with your healthcare provider as directed: Write down your questions so you remember to ask them during your visits. ?? 2017 [employer] Information is for End User's use only and may not be sold, redistributed or otherwise used for commercial purposes. All illustrations and images included in CareNotes?? are the copyrighted property of [employer], [employer]. or [employer]. The above information is an food service aide only. It is not intended as medical advice for individual conditions or treatments. Talk to your doctor, nurse or pharmacist before following any medical regimen to see if it is safe and effective for you. documented in this encounter Progress Notes * Anne Villatoro MD - 07/30/2021 3:00 PM CDT Images from the original note were not included. MEDICARE SUBSEQUENT ANNUAL WELLNESS VISIT MEDICARE ANNUAL WELLNESS VISIT Patient ID: Lucy Mcallister is a 71 y.o. female. CC: Chief Complaint Patient presents with ??? Medicare Annual Wellness Visit Subsequent ??? Follow up Chronic Conditions HPI: Here for MCW Here for annual preventive exam. Chronic conditions reviewed. Most recent labs available reviewed. Maintenance and preventive screening test results reviewed and discussed. Current Weight compared to last visit's weight reviewed. Physical activity and lifestyle reviewed. OTC supplements reviewed and discussed. Patient Care Team: Anne Villatoro MD as PCP - General (Internal Medicine) James Peraza MD as Referring Physician (Obstetrics and Gynecology) González Moser OD (Ophthalmology) Carlos Antony MD (Dermatology) Vitals: Vitals: 07/30/21 1450 BP: 122/70 BP Location: Left arm Patient Position: Sitting Pulse: 70 Temp: 36.4 ??C (97.6 ??F) TempSrc: Temporal SpO2: 96% Weight: 61.1 kg (134 lb 12.8 oz) Height: 154.9 cm (5' 1 ) Body mass index is 25.47 kg/m??. Medicare Health Risk Assessment Basic Information In general, would you say your health is: Excellent Do you have an advance directive, such as a living will or durable power of employee benefits attorney?: No Would you like information regarding Advanced Directiv (Living Will) and/or Durable Power of Acquisition Professional?: No Do you have trouble hearing the television or radio when other do not?: No Do you have to strain or struggle to hear/understand conversations?: No Have you experienced any of the following problems currently or recently? Eating: No Grooming: No Bathing: No Walking: No Using the toilet: No Memory problems: No Difficulty speaking: No Have you experienced any of the following problems currently or recently? Laundry and/or housekeeping: No Handling Money: No Shopping: No Food preparation: No Transportation: No Taking and/or getting your own medications: No Past Medical and Surgical History: Past Medical History: Diagnosis Date ??? Persistent insomnia Past Surgical History: Procedure Laterality Date ??? CATARACT EXTRACTION, BILATERAL Bilateral 05/2021 Dr Sarabjit Rene, 05/2021 and 06/2021 ??? TUBAL LIGATION Family History: Family History Problem Relation Age of Onset ??? Colon cancer Mother ??? Macular degeneration Mother ??? Alcohol abuse Father ??? Macular degeneration Brother ??? Stroke Brother 55 ??? Hypertension Brother Social History: Social History Socioeconomic History ??? Marital status: Spouse name: Not on file ??? Number of children: Not on file ??? Years of education: Not on file ??? Highest education level: Not on file Occupational History ??? Not on file Tobacco Use ??? Smoking status: Never Smoker ??? Smokeless tobacco: Never Used Vaping Use ??? Vaping Use: Never used Substance and Sexual Activity ??? Alcohol use: Yes ??? Drug use: Never ??? Sexual activity: Defer Other Topics Concern ??? Not on file Social History Narrative ??? Not on file Social Determinants of Health Financial Resource Strain: Not on file Food Insecurity: Not on file Transportation Needs: Not on file Physical Activity: Not on file Stress: Not on file Social Connections: Not on file Intimate Partner Violence: Not on file Housing Stability: Not on file Diet: Regular Physical Activities: tries to walk daily, plans to get back to the gym regularly Plans to retire soon Current Medications: Outpatient Encounter Medications as of 07/30/2021 Medication Sig Dispense Refill ??? ASCORBIC ACID-ASCORBATE CALC ORAL 500 mg daily ??? calcium carbonate/vitamin D3 (CALCIUM 500 + D ORAL) 600 mg daily ??? cholecalciferol, vitamin D3, (CHOLECALCIFEROL, VIT D3,,BULK, MISC) 1,000 Units daily ??? cyanocobalamin (Vitamin B-12) 1,000 mcg tablet daily ??? melatonin tablet 3 mg daily ??? traZODone (DESYREL) 50 mg tablet Take 1 tablet (50 mg total) by mouth nightly 45 tablet 1 ??? vit C,I-Jr-tqtmj-lutein-zeaxan [id number] jj-rkmc-lv-mg capsule Take 1 tablet by mouth daily ??? [DISCONTINUED] azithromycin (ZITHROMAX) 250 mg tablet ??? multivitamin capsule Take 1 capsule by mouth daily (Patient not taking: Reported on 07/30/2021) No facility-administered encounter medications on file as of 07/30/2021. Allergies: No Known Allergies Review of Systems Constitutional: Negative for fever and unexpected weight change. HENT: Negative for trouble swallowing and voice change. Eyes: Negative for pain and visual disturbance. Respiratory: Negative for cough and shortness of breath. Cardiovascular: Negative for chest pain, palpitations and leg swelling. Gastrointestinal: Positive for blood in stool (int hemorrhoids). Negative for nausea. Genitourinary: Negative for frequency and urgency. Musculoskeletal: Negative for gait problem and myalgias. Neurological: Negative for dizziness and headaches. Psychiatric/Behavioral: Positive for sleep disturbance. Negative for agitation and confusion. Physical Exam Vitals and nursing note reviewed. Constitutional: General: She is not in acute distress. Appearance: Normal appearance. She is well-developed. HENT: Head: Normocephalic and atraumatic. Right Ear: Tympanic membrane normal. Left Ear: Tympanic membrane normal. Nose: Nose normal. Eyes: Extraocular Movements: Extraocular movements intact. Conjunctiva/sclera: Conjunctivae normal. Pupils: Pupils are equal, round, and reactive to light. Neck: Thyroid: No thyromegaly. Cardiovascular: Rate and Rhythm: Normal rate and regular rhythm. Pulses: Normal pulses. Heart sounds: Normal heart sounds. No murmur heard. No friction rub. No gallop. Pulmonary: Effort: Pulmonary effort is normal. Breath [...] time. Cranial Nerves: No cranial nerve deficit. Coordination: Coordination normal. Deep Tendon Reflexes: Reflexes normal. Psychiatric: Mood and Affect: Mood normal. Behavior: Behavior normal. Judgment: Judgment normal. Depression Screen: PHQ Screening Over the last 2 weeks, how often have you been bothered by any of the following problems? Little Interest or Pleasure in Doing Things: Not at all Feeling Down, Depressed, or Hopeless: Not at all PHQ-2 Total Score (If total score is 3 or more points, staff should administer the PHQ-9): 0 Over the past 2 weeks, how often have you been bothered by any of the following problems? Little Interest or Pleasure in Doing Things: Not at all Feeling Down, Depressed, or Hopeless: Not at all PHQ-2 Total Score (If total score is 3 or more points, staff should administer the PHQ-9): 0 Trouble Falling or Staying Asleep, or Sleeping too Much: Nearly every day Feeling Tired or Having Little Energy: Not at all Poor Appetite or Overeating: Several days Feeling Bad About Yourself - or That [...] Way: Not at all PHQ-9 Total Score: 4 If you checked off any problems, how difficult have these problems made it for you to do your work,take care of things at home, or get along with other people?: Not difficult at all Advanced Directive Durable Power of Acquisition Professional: No Living Will: No Audio Screen: Is the patient having any problems with hearing? No Visual Acuity Screen Normal Dr Corbin portillo cataracts Up and Go Test: Patient was unsteady or time test was longer than 30 seconds? No Care Team Providers: Patient Care Team: Anne Villatoro MD as PCP - General (Internal Medicine) James Peraza MD as Referring Physician (Obstetrics and Gynecology) González Moser OD (Ophthalmology) Carlos Antony MD (Dermatology) Primary Pharmacy/DME suppliers: [id number] - [place], [place] - [address] [facility] [address] [phone] [facility] [id number] Detection of Cognitive Impairment: Detect cognitive impairment based on direct observation, discussion with patient or family, or review of medical records? No CDT normal Still working Please see patient instructions section for recommendations for appropriate screening and monitoring guidelines. BMI Follow-up includes: nutrition counseling and exercise counseling. STEADI Fall Risk Screening In the past year, patient experienced: One or more falls in the last year: No Has trouble stepping up onto a curb: No Advised to use a cane or walker to get around safely: No Often has to mckenna to the toilet: No Feels unsteady when walking: No Has lost some feeling in feet: No Steadies self on furniture while walking at home: No Takes medicine that makes him/her feel lightheaded or more tired than usual: No Worried about falling: No Takes medicine to sleep or improve mood: No Needs to push with hands when rising from a chair: No Often feels sad or depressed: No STEADI Score Total: 0 Assessment and Plan: Diagnoses and all orders for this visit: Medicare annual wellness visit, subsequent (Primary) Assessment & Plan: Reviewed previous labs and diagnostic test results. [...] and establishing or updating healthcare power of employee benefits attorney document and providing our office with a copy. Risk for falls Assessment & Plan: Patient at risk for falls due to age and co morbidities. Fall prevention discussed c patient in detail. Exercises for balance and coordination, keep LE muslces toned and strong. Family history of colon cancer in mother Assessment & Plan: 2020 last colonoscopy, no polyps Goes every 5 yrs Family history of macular degeneration Assessment & Plan: So far no signs of AMD Takes eye vitamins Labs soon: Cbc, cmp, lipids, 25 oh vit D, ua OV 1 yr for MCW Anne Villatoro MD This note is dictated and transcribed by [employer]. Credit Card Control Clerk variances may occur. Despite proofreading, typographical errors may occur. documented in this encounter Miscellaneous Notes * Assessment & Plan Note - Anne Villatoro MD - 07/30/2021 3:18 PM CDT Associated Problem(s): Chronic insomnia Does not need it nightly Only takes if has not slept several nightls in a row like 5-7 nights * Assessment & Plan Note - Anne Villatoro MD - 07/30/2021 3:17 PM CDT Associated Problem(s): Family history of macular degeneration So far no signs of AMD Takes eye vitamins * Assessment & Plan Note - Anne Villatoro MD - 07/30/2021 3:17 PM CDT Associated Problem(s): Family history of colon cancer in mother 2020 last colonoscopy, no polyps Goes every 5 yrs * Assessment & Plan Note - Anne Villatoro MD - 07/30/2021 3:05 PM CDT Associated Problem(s): Risk for falls Patient at risk for falls due to age and co morbidities. Fall prevention discussed c patient in detail. Exercises for balance and coordination, keep LE muslces toned and strong. * Assessment & Plan Note - Anne Villatoro MD - 07/30/2021 3:05 PM CDT Associated Problem(s): Medicare annual wellness visit, subsequent Reviewed previous labs and diagnostic test results. [...] and establishing or updating healthcare power of employee benefits attorney document and providing our office with a copy. documented in this encounter Plan of Treatment Not on file documented as of this encounter Procedures Procedure Name Priority Date/Time Associated Diagnosis Comments DEXA SCAN Routine 06/05/2021 MAMMOGRAPHY Routine 05/25/2021 documented in this encounter Results * (ABNORMAL) DEXA SCAN (06/05/2021) Scribed Deca Scan Abnormal Historical Provider HEALTH MAINTENANCE Final Result * MAMMOGRAPHY (05/25/2021) Mammography Normal Historical Provider HEALTH MAINTENANCE Final Result documented in this encounter Visit Diagnoses Diagnosis Medicare annual wellness visit, subsequent- Primary Risk for falls Family history of colon cancer in mother Family history of macular degeneration Family history of other eye disorders documented in this encounter Discontinued Medications Medication Sig Discontinue Reason Start Date End Da te azithromycin (ZITHROMAX) 250 mg tablet Therapy completed 022 07/30/2021 documented as of this encounter Historical Medications * This list may reflect changes made after this encounter. Medication Sig Dispense Quantity Refills Last Filled Start D ate End Date azithromycin (ZITHROMAX) 250 mg tablet 04/30/2021 07/30/2021 added in this encounter Care Teams Inspector Welded Parts Relationship Specialty Start Date End Date Anne Villatoro MD [address] [facility] [address] [place] [address] PCP - General Internal Medicine 11/09/18 James Peraza MD [address] [facility] [address] [place] [address] Referring Physician Obstetrics and Gynecology 11/09/18 08/04/22 González Moser, [address] [place] [address] Ophthalmology 04/10/20 Carlos Antony MD [address] [place] [address] Dermatology 01/12/21 documented as of this encounter
--- OUTSIDE RECORDS SUMMARY | 2024-04-15 23:02 | XMS_ITS | Encounter Summary ---
Author Organization [facility] Care Team Providers Care Enrollment Processor Name Role Phone Anne Villatoro MD Primary Care Provider + [phone] James Peraza MD Unavailable [phone] Encounter Details Date Type Department Care Team (Latest Contact Info) Description 11/09/2018 Travel Social History Tobacco Use Types Packs/Day Years Used Date Smoking Tobacco: Never Smokeless Tobacco: Never Alcohol Use Standard Drinks/Week Comments Yes 0 (1 standard drink = 0.6 oz pur e alcohol) AUDIT-C Answer Date Recorded Frequency of Alcohol Consumption Monthly or less 11/09/2018 Average Number of Drinks Not on file 019 Frequency of Binge Drinking Not on file 10/13 Comments Unknown Sex and Gender Information Value Date Recorded Sex Assigned at Not on file 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
--- OUTSIDE RECORDS SUMMARY | 2024-04-15 23:02 | XMS_ITS | Encounter Summary ---
Author Organization [facility] Address [address] [facility] [address] [place] [address] Care Team Providers Care Proof Sorter Name Role Phone Unavailable Primary Care Provider Unavailabl e Encounter Details Date Type Department Care Team (Late st Contact Info) Description 11/04/2018 Orders Only [facility] Medical [facility] Internal Medicine [address] [facility] [address] [place] [address] Nikkie Farooq MA Social History Tobacco Use Types Packs/Day Years Used Date Smoking Tobacco: Never Assessed AUDIT-C Answer Date Recorded Frequency of Alcohol Consumption Monthly or less 11/09/2018 Average Number of Drinks Not on file 019 Frequency of Binge Drinking Not on file 10/13 Comments Unknown Sex and Gender Information Value Date Recorded Sex Assigned at Not on file 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 cyanocobalamin (Vitamin B-12) 1,000 mcg tablet daily cholecalciferol, vitamin D3, (CHOLECALCIFEROL, VIT D3,,BULK, MISC) 1,000 Units daily calcium carbonate/vitamin D3 (CALCIUM 500 + D ORAL) 600 mg daily ASCORBIC ACID-ASCORBATE CALC ORAL 500 mg daily melatonin tablet Take 1 tablet (3 mg total) by mouth nightly as needed traZODone (DESYREL) 50 mg tablet 1 08/03/2018 11/09/2018 aspirin (ASPIR-81) 81 mg enteric coated tablet 81 mg daily 11/09/2018 added in this encounter
--- OUTSIDE RECORDS SUMMARY | 2024-04-15 23:02 | XMS_ITS | Encounter Summary ---
Author Organization [facility] Address [address] [address] Care Team Providers Care Affiliate Manager Name Role Phone Anne Villatoro MD Primary Care Provider + [phone] James Peraza MD Unavailable + [phone] González Moser OD Unavailable [phone] Carlos Antony MD Unavailable [phone] Encounter Details Date Type Department Care Team (Late st Contact Info) Description 07/15/2022 Telephone [facility] Cardiology [address] [address] [place] [address] [place] [id number] Social History Tobacco Use Types Packs/Day [...] points, staff should administer the PHQ-9) 0 05/01/2022 Comments Unknown Sex and Gender Information Value Date Recorded Sex Assigned at Not on file Legal Sex Female 7:33 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 She declined at this time, stating she is able to walk 3 miles/day with no symptoms. She will callback if symptoms change. * Telephone Encounter - Maricruz Arzate RN - 07/15/2022 1:39 PM CDT TM stress test per JF documented in this encounter Plan of Treatment Not on file documented as of this encounter Visit Diagnoses Diagnosis Family history of early CAD- Primary Family history of ischemic heart disease Atypical chest pain Other chest pain documented in this encounter Care Teams Affiliate Manager Relationship Specialty Start Date End Date Anne Villatoro MD [address] [facility] [address] [place], [place] [address] PCP - General Internal Medicine 11/09/18 James Peraza MD [address] [facility] [address] [place], [place] [address] Referring Physician Obstetrics and Gynecology 11/09/18 08/04/22 González Moser, ABILIO [address] [place] [address] Ophthalmology 04/10/20 Carlos Antony MD [address] [place] [address] Dermatology 01/12/21 documented as of this encounter
--- OUTSIDE RECORDS SUMMARY | 2024-04-15 23:02 | XMS_ITS | Encounter Summary ---
Author Organization [facility] Address [address] [address] Care Team Providers Care Records Management Analyst Name Role Phone Anne Villatoro MD Primary Care Provider + [phone] González Moser OD Unavailable [phone] Carlos Antony MD Unavailable [phone] Esha Madrid MD Unavailable + [phone] Margarito Torre MD Unavailable +[phone] Reason for Visit * Reason Comments Medicare Wellness Patient arrives for Medicare Wellness. 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 Gender Identity Not on file Sexual Orientation Not on file documented as of this encounter Last Filed Vital Signs Vital Sign Reading Time Taken Comments Blood Pressure 110/70 08/05/2022 1:38 PM CDT Pulse 68 08/05/2022 1:38 PM CDT Temperature 36.4 ??C (97.5 ??F) 08/05/2022 1:38 PM CD T Respiratory Rate 16 08/05/2022 1:38 PM CDT Oxygen Saturation 98% 08/05/2022 1:38 PM CDT Inhaled Oxygen Concentration - - Weight 60.8 kg (134 lb) 08/05/2022 1:38 PM CDT Height 154.9 cm (5' 1 ) 08/05/2022 1:38 PM CDT Body Mass Index 25.32 08/05/2022 1:38 PM CDT documented in this encounter Patient Instructions * Attachments The following attachments cannot be sent through Care Everywhere. * Fall Prevention (Loan Reviewer) (Bolivian) documented in this encounter Progress Notes * Anne Villatoro MD - 08/05/2022 1:30 PM CDT Images from the original note were not included. MEDICARE SUBSEQUENT ANNUAL WELLNESS VISIT MEDICARE ANNUAL WELLNESS VISIT Patient ID: Lucy Mcallister is a 72 y.o. female. CC: Chief Complaint Patient presents with Medicare Wellness Patient arrives for Medicare Wellness. HPI: Here for W Chronic conditions reviewed. 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 Maintenance and preventive screening test results reviewed and discussed. Current Weight compared to last visit's weight reviewed. Physical activity and lifestyle reviewed. OTC supplements reviewed and discussed. Patient Care Team: Anne Villatoro MD as PCP - General (Internal Medicine) González Moser OD (Ophthalmology) Carlos Antony MD (Dermatology) Esha Madrid MD as Consulting Physician (Interventional Cardiology) Margarito Torre MD as Referring Physician (Dermatology) Vitals: Vitals: 08/05/22 1338 BP: 110/70 BP Location: Left arm Patient Position: Sitting Pulse: 68 Resp: 16 Temp: 36.4 ??C (97.5 ??F) TempSrc: Temporal SpO2: 98% Weight: 60.8 kg (134 lb) Height: 154.9 cm (5' 1 ) Body mass index is 25.32 kg/m??. Medicare Health Risk Assessment Basic Information In general, would you say your health is: Excellent Do you have an advance directive, such as a living will or durable power of admitted attorneys?: No Would you like information regarding Advanced Directiv (Living Will) and/or Durable Power of High Speed Printer Operator?: Yes Do you have to strain or struggle to hear/understand conversations?: No Have you experienced any of the following problems currently or recently? Eating: No Grooming: No Bathing: No Walking: No Using the toilet: No Memory problems: No Difficulty speaking: No Pain: No Sexual Health: No Fatigue: No Have you experienced any of the following problems currently or recently? Laundry and/or housekeeping: No Handling Money: No Shopping: No Food preparation: No Transportation: No Taking and/or getting your own medications: No Do you use prescription drugs that are not prescribed for you?: No Denies Illicit Drug Use Denies Dental Problems, states Dental Health is good Wears Seat Belt while in a moving vehicle Admits to no problems in Sexual Health Diet: low chol Physical Activities: 5 days a wk Allergies: No Known Allergies Review of Systems [...] dizziness and headaches. Psychiatric/Behavioral: Positive for sleep disturbance (chronic). Physical Exam Vitals and nursing note reviewed. [...] normal. Depression Screen: PHQ Screening Over the past [...] Not at all PHQ-9 Total Score: 0 Advanced Directive Durable Power of High Speed Printer Operator: NO Living Will: NO Audio Screen: Is the patient having any problems with hearing? No Visual Acuity Screen Normal Up and Go Test: Patient was unsteady or time test was longer than 30 seconds? No STEADI Fall Risk Screening In the past year, patient experienced: One or more falls in the last year: No Primary Pharmacy/DME suppliers: [facility] [place], [place] - [address] [facility] [address] [facility] [address] Detection of Cognitive Impairment: Detect cognitive impairment based on direct observation, discussion with patient or family, or review of medical records? No Please see patient instructions section for recommendations for appropriate screening and monitoring guidelines. Assessment and Plan: Diagnoses and all orders [...] and establishing or updating healthcare power of admitted attorneys document and providing our office with a copy. Orders: - CBC with auto differential; Future - Comprehensive metabolic panel; Future - Lipid panel; Future - TSH; Future Risk for falls Assessment & Plan: Patient at risk for falls due to age and co morbidities. Fall prevention discussed c patient in detail. Exercises for balance and coordination, keep LE muslces toned and strong. Hypertension, essential Assessment & Plan: Managed by Dr Madrid, cardiology Follow low [...] Rx medication. BP is controlled and stable. Orders: - CBC with auto differential; Future - Comprehensive metabolic panel; Future - Lipid panel; Future - TSH; Future Low bone mass Assessment & Plan: Density up to date Cont to exercise for bone strengthening and balance Cont calcium and vit D rich supplements and diet Chronic insomnia Assessment & Plan: Cont rxTrazodone takes it prn Cont otc Melatonin prn Cont otc Magnesium nightly, by Nature made it is helping Anne Villatoro MD OV 1 yr for annual [facility] Labs due: cbc, cmp, lipids, tsh This note is dictated and transcribed by [employer]. Hogshead Cooper variances may occur. Despite proofreading, typographical errors may occur. documented in this encounter Miscellaneous Notes * Result Encounter Note - Aruna Leal MA - 12/19/2022 9:12 AM CDT LVM to let her know Dr. Villatoro said ok to do Free T4 and I ordered it. * Result Encounter Note - Anne Villatoro MD - 12/17/2022 7:33 PM CDT Please call the patient regarding her lab results. Cholesterol levels are worse. Follow a low-cholesterol heart healthy diet. The 10-year ASCVD risk score (Gunlock DK, et al., 2019) is: 9.7% She is at intermediate risk for heart disease. Statin medication can help reduce her risk for heartdisease and stroke. I will leave this up to her. I recommend that she start a medication called rosuvastatin which is Crestor at 5 mg once daily which is very low dose but will help lower cholesterollevels. LDL should be under 100 and hers is at 160. Thyroid level is slightly above the normal range. In her age group abnormal would be considered if it is over 10. Hers is at 4.76. Continue to trend. Repeat TSH level in 6 months . Should she decide to start taking the cholesterol medication then we would need to get a lipid panel and liver panel in 6 months * Assessment & Plan Note - Anne Villatoro MD - 08/05/2022 2:37 PM CDT Associated Problem(s): Low bone mass Density up to date Cont to exercise for bone strengthening and balance Cont calcium and vit D rich supplements and diet * Assessment & Plan Note - Anne Villatoro MD - 08/05/2022 2:24 PM CDT Associated Problem(s): Hypertension, essential Managed by Dr Madrid, cardiology Follow low [...] Rx medication. BP is controlled and stable. * Assessment & Plan Note - Anne Villatoro MD - 08/05/2022 2:23 PM CDT Associated Problem(s): Chronic insomnia Cont rxTrazodone takes it prn Cont otc Melatonin prn Cont otc Magnesium nightly, by Nature made it is helping * Assessment & Plan Note - Anne Villatoro MD - 08/05/2022 2:21 PM CDT Associated Problem(s): Risk for falls Patient at risk for falls due to age and co morbidities. Fall prevention discussed c patient in detail. Exercises for balance and coordination, keep LE muslces toned and strong. * Assessment & Plan Note - Anne Villatoro MD - 08/05/2022 2:19 PM CDT Associated Problem(s): Medicare annual wellness [...] and establishing or updating healthcare power of admitted attorneys document and providing our office with a copy. documented in this encounter Plan of Treatment Not on file documented as of this encounter Procedures Procedure Name Priority Date/Time Associated Diagnosis Comments CBC WITH AUTO DIFFERENTIAL Routine 12/13/2022 9:18 AM CDT Medicare annual wellness visit, subsequent Hypertension, essential TSH Routine 12/13/2022 9:18 AM CDT Medicare annual wellness visit, subsequent Hypertension, essential LIPID PANEL Routine 12/13/2022 9:18 AM CDT Medicare annual wellness visit, subsequent Hypertension, essential COMPREHENSIVE METABOLIC PANEL Routine 12/13/2022 9:18 AM CDT Medicare annual wellness visit, subsequent Hypertension, essential documented in this encounter Results * (ABNORMAL) TSH (12/13/2022 9:18 AM CDT) TSH 4.76(H) 0.40 - 4.50 mIU/L [facility] Blood 12/13/2022 9:18 AM CDT 12/13/2022 9:19 AM CDT Narrative [facility] - 12/14/2022 4:59 AM CDT FASTING:YES FASTING: YES us Anne Villatoro MD LAB BLOOD ORDERABLES Final R esult [facility] [address] [place] [address] * (ABNORMAL) Lipid panel (12/13/2022 9:18 AM CDT) Cholesterol 253(H) <200 mg/dL [facility] HDL 68 > OR = 50 mg/dL [facility] Triglycerides 123 <150 mg/dL [facility] LDL 160(H) mg/dL (calc) [facility] Comment: Reference range: <100 Desirable range <100 mg/dL for primary prevention; ?? <70 mg/dL for patients with CHD or diabetic patients with > or = 2 CHD risk factors. LDL-C is now calculated using the Javier-Darline calculation, which is a validated novel method providing better accuracy than the Friedewald equation in the estimation of LDL-C. Javier BOYER et al. DEMIAN. 2013;310(19): 5558-2803 (http://education.Countdown.Hot Hotels/faq/WWX888) Chol/HDL ratio 3.7 <5.0 (calc) [facility] Non-HDL, (LDL+VLDL) 185(H) <130 mg/dL (calc) [facility] Comment: For patients with diabetes plus 1 major ASCVD risk factor, treating to a non-HDL-C goal of <100 mg/dL (LDL-C of <70 mg/dL) is considered a therapeutic option. Blood 12/13/2022 9:18 AM CDT 12/13/2022 9:19 AM CDT Narrative [facility] - 12/14/2022 4:59 AM CDT FASTING:YES FASTING: YES us Anne Villatoro MD LAB BLOOD ORDERABLES Final R esult [facility] [address] [place] [id number] * Comprehensive metabolic panel (12/13/2022 9:18 AM CDT) [facility] Glucose 90 65 - 99 mg/dL [facility] Comment: ? Fasting reference interval BUN 19 7 - 25 mg/dL [facility] Creatinine 0.79 0.60 - 1.00 mg/dL [facility] eGFR 80 > OR = 60 mL/min/1.7 3m2 [facility] BUN/creat ratio SEE NOTE: 6 - 22 (calc) [facility] Comment: ?? Not Reported: BUN and Creatinine are within ?? reference range. ? Sodium 141 135 - 146 mmol/L [facility] Potassium, pl 4.2 3.5 - 5.3 mmol/L [facility] Chloride 104 98 - 110 mmol/L [facility] CO2 31 20 - 32 mmol/L [facility] Calcium 9.5 8.6 - 10.4 mg/dL [facility] Protein, sr 6.9 6.1 - 8.1 g/dL [facility] Albumin 4.5 3.6 - 5.1 g/dL [facility] GLOBULIN 2.4 1.9 - 3.7 g/dL (calc) [facility] Alb/glob ratio 1.9 1.0 - 2.5 (calc) [facility] Bilirubin, total 0.5 0.2 - 1.2 mg/dL [facility] Alk phos 59 37 - 153 U/L [facility] AST 25 10 - 35 U/L [facility] ALT (SGPT) 23 6 - 29 U/L [facility] Blood 12/13/2022 9:18 AM CDT 12/13/2022 9:19 AM CDT Narrative [facility] - 12/14/2022 4:59 AM CDT FASTING:YES FASTING: YES us Anne Villatoro MD LAB BLOOD ORDERABLES Final R esult [facility] [address], [place] [address] * (ABNORMAL) CBC with auto differential (12/13/2022 9:18 AM CDT) WBC 4.7 3.8 - 10.8 Thousand/u L [facility] RBC, POC 4.05 3.80 - 5.10 Million/uL [facility] Hgb 14.5 11.7 - 15.5 g/dL [facility] Hct 41.1 35.0 - 45.0 % [facility] MCV 101.5(H) 80.0 - 100.0 fL [facility] MCH 35.8(H) 27.0 - 33.0 pg [facility] MCHC 35.3 32.0 - 36.0 g/dL [facility] Rdw 11.6 11.0 - 15.0 % [facility] Platelets 258 140 - 400 Thousand/u L [facility] MPV 11.1 7.5 - 12.5 fL [facility] Neutrophils, abs 2,317 1,500 - 7,800 cells/uL [facility] Lymphocytes, abs 1,753 850 - 3,900 cells/uL [facility] Monocyte abs 489 200 - 950 cells/uL [facility] Eosinophils, abs 71 15 - 500 cells/uL [facility] Basophils, abs 71 0 - 200 cells/uL [facility] Neutrophils 49.3 % [facility] Lymphocyte pct 37.3 % [facility] Monocytes 10.4 % [facility] Eosinophils 1.5 % [facility] Basophils 1.5 % [facility] Blood 12/13/2022 9:18 AM CDT 12/13/2022 9:19 AM CDT Narrative [facility] - 12/14/2022 4:59 AM CDT FASTING:YES FASTING: YES us Anne Villatoro MD LAB BLOOD ORDERABLES Final R esult [facility] [address] [address] [facility] [place] [address] documented in this encounter Visit Diagnoses Diagnosis Medicare annual wellness visit, subsequent- Primary Risk for falls Hypertension, essential Unspecified essential hypertension Low bone mass Chronic insomnia Insomnia, unspecified documented in this encounter Care Teams Records Management Analyst Relationship Specialty Start Date End Date Anne Villatoro MD [address] [place] [address] PCP - General Internal Medicine 11/09/18 González Moser OD [address] [place] [address] Ophthalmology 04/10/20 Carlos Antony MD [address] [place] [address] Dermatology 01/12/21 Esha Madrid MD [address] [place] [address], [place] [address] Consulting Physician Interventional Cardiology 08/05/22 Margarito Torre MD [address] [facility] [place] [address] Referring Physician Dermatology 08/05/22 documented as of this encounter
--- OUTSIDE RECORDS SUMMARY | 2024-04-15 23:02 | XMS_ITS | Encounter Summary ---
Author Organization [facility] Care Team Providers Care Deoiling Machine Operator Name Role Phone Anne Villatoro MD Primary Care Provider + [phone] James Peraza MD Unavailable + [phone] González Moser OD Unavailable [phone] Carlos Antony MD Unavailable [phone] Esha Madrid MD Unavailable + [phone] Margarito Torre MD Unavailable [phone] Encounter Details Date Type Department Care Team (Latest Contact Info) Description 12/13/2015 Orders Only [facility]INCON[facility] ProviderAmber MD [address] [place] [address] Social History Tobacco Use Types Packs/Day Years Used Date Smoking Tobacco: Never Assessed Comments Unknown Sex and Gender Information Value Date Recorded Sex Assigned at Not on file 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 Historical Provider Final Res ult documented in this encounter Visit Diagnoses Not on filedocumented in this encounter Care Teams Deoiling Machine Operator Relationship Specialty Start Date End Date Anne Villatoro MD [address] [facility] [address] [place], [place] [address] PCP - General Internal Medicine 11/09/18 James Peraza MD [address] [facility] [address] [place] [address] Referring Physician Obstetrics and Gynecology 11/09/18 08/04/22 González Moser, OD [address] [place] [address] Ophthalmology 04/10/20 Carlos Antony MD [address] [place] [address] Dermatology 01/12/21 Esha Madrid MD [address] [facility] [address], [place] [address] Consulting Physician Interventional Cardiology 08/05/22 Margarito Torre MD [address] [facility] [place] [address] Referring Physician Dermatology 08/05/22 documented as of this encounter
--- OUTSIDE RECORDS SUMMARY | 2024-04-15 23:02 | XMS_ITS | Encounter Summary ---
Author Organization [facility] Medical [facility] Address [address] [address] Care Team Providers Care Dormitory Maid Name Role Phone Anne Villatoro MD Primary Care Provider + [phone] James Peraza MD Unavailable + [phone] González Moser OD Unavailable [phone] Carlos Antony MD Unavailable [phone] Reason for Visit * Reason Onset Date Comments wants TSH Lab 10/01/2021 Encounter Details Date Type Department Care Team (Late st Contact Info) Description 10/01/2021 Telephone [facility] Primary Care [address] [phone] Anne Villatoro MD [facility] [address] wants TSH Lab Social History Tobacco Use Types Packs/Day Years [...] on file 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 [facility] documented in this encounter Plan of Treatment Scheduled Orders Name Type Priority Associated Diagnoses Orde r Schedule TSH Lab Routine Hair loss Expected: 10/01/2021, Expires: 3 documented as of this encounter Visit Diagnoses Diagnosis Hair loss- Primary Unspecified alopecia documented in this encounter Care Teams Dormitory Maid Relationship Specialty Start Date End Date Anne Villatoro MD [address] [id number] PCP - General Internal Medicine 11/09/18 James Peraza MD [address] [address] Referring Physician Obstetrics and Gynecology 11/09/18 08/04/22 González Moser, ABILIO [address] [place] [address] Ophthalmology 04/10/20 Carlos Antony MD [address] [facility] [place] [address] Dermatology 01/12/21 documented as of this encounter
--- OUTSIDE RECORDS SUMMARY | 2024-04-15 23:02 | XMS_ITS | Encounter Summary ---
Author Organization [facility] Address [address] [address] Care Team Providers Care Maintenance Inspector Name Role Phone Anne Villatoro MD Primary Care Provider + [phone] James Peraza MD Unavailable [phone] González Moser OD Unavailable [phone] Encounter Details Date Type Department Care Team (Late st Contact Info) Description 05/12/2020 Telephone [facility] Primary Care [address] [facility] [address] [place] [phone] Kyleigh Vick MA Social History Tobacco Use Types Packs/Day [...] points, staff should administer the PHQ-9) 0 04/10/2020 Comments Unknown Sex and Gender Information Value Date Recorded Sex Assigned at Not on file Legal Sex Female 7:33 PM ANSWERER Gender Identity Not on file Sexual Orientation Not on file documented as of this encounter Miscellaneous Notes * Telephone Encounter - Kyleigh Vick MA - 05/12/2020 3:09 PM CST Lab orders sent to [facility] documented in this encounter Plan of Treatment Scheduled Orders Name Type Priority Associated Diagnoses Orde r Schedule Lipid panel Lab Routine Medicare annual wellness visit, subsequent Expected: 05/12/2020, Expires: 05/12/2021 CBC with auto differential Lab Routine Medicare annual wellness visit, subsequent Expected: 05/12/2020, Expires: 05/12/2021 Comprehensive metabolic panel Lab Routine Medicare annual wellness visit, subsequent Expected: 05/12/2020, Expires: 05/12/2021 documented as of this encounter Visit Diagnoses Diagnosis Medicare annual wellness visit, subsequent- Primary documented in this encounter Care Teams Maintenance Inspector Relationship Specialty Start Date End Date Anne Villatoro MD [address] [place] [address] PCP - General Internal Medicine 11/09/18 James Peraza MD [address] [address] Referring Physician Obstetrics and Gynecology 11/09/18 08/04/22 González Moser, ABILIO [address] [place] [address] Ophthalmology 04/10/20 documented as of this encounter
--- OUTSIDE RECORDS SUMMARY | 2024-04-15 23:02 | XMS_ITS | Encounter Summary ---
Author Organization [facility] Address [address] [address] Care Team Providers Care Adding Machine Mechanic Name Role Phone Anne Villatoro MD Primary Care Provider + [phone] James Peraza MD Unavailable + [phone] González Moser OD Unavailable [phone] Encounter Details Date Type Department Care Team (Late st Contact Info) Description 04/10/2020 Orders Only [facility] Primary Care [address] [phone] Anne Villatoro MD [address] [address] Encounter for hepatitis C screening test for low risk patient (Primary Dx); Colon cancer screening; Screening for endocrine, metabolic, and immunity disorder; Fatigue, unspecified type; Vitamin D deficiency Social History Tobacco Use Types Packs/Day Years [...] on file Legal Sex Female 7:33 PM DIRECTOR SALES Gender Identity Not on file Sexual Orientation Not on file documented as of this encounter Miscellaneous Notes * Result Encounter Note - Kyleigh Vick MA - 05/12/2020 3:09 PM CST Patient notified, voices understanding. Lab orders sent to [facility] CTOR SALES * Result Encounter Note - Anne Villatoro MD - 05/09/2020 5:14 PM DIRECTOR SALES Please call patient with recent test results. Findings are all within normal limits except chol levels are up. The 10-year ASCVD risk score ([place] SHYLA Jr., et al., 2013) is: 6.3% Values used to calculate the score: Age: 69 years Sex: Female Is Non- : No Diabetic: No Tobacco smoker: No Systolic Blood Pressure: 122 mmHg Is BP treated: No HDL Cholesterol: 67 mg/dL Total Cholesterol: 235 mg/dL Remains under 7.5% NO STATIN MED INDICATED AT THIS TIME. Remainder of labs she can view on [facility]. Repeat labs in 1 yr: Cbc, cmp, lipids CTOR SALES * Addendum Note - Katharina Kowalski MA - 04/10/2020 9:07 AM CSTAddended by: KATHARINA KOWALSKI on: 04/10/2020 09:32 AM Modules accepted: Orders CTOR SALES documented in this encounter Plan of Treatment Scheduled Orders Name Type Priority Associated Diagnoses Orde r Schedule Type and screen Lab Routine Screening for endocrine, metabolic, and immunity disorder Expected: 04/10/2020, Expires: 04/10/2021 documented as of this encounter Procedures Procedure Name Priority Date/Time Associated Diagnosis Comments URINALYSIS AND REFLEX TO MICROSCOPIC AND CULTURE Routine 05/08/2020 9:55 AM DIRECTOR SALES Screening for endocrine, metabolic, and immunity disorder HEPATITIS C ANTIBODY Routine 05/08/2020 9:55 AM DIRECTOR SALES Encounter for hepatitis C screening test for low risk patient ABO/RH Routine 05/08/2020 9:55 AM DIRECTOR SALES VITAMIN D 25 HYDROXY Routine 05/08/2020 9:55 AM DIRECTOR SALES Fatigue, unspecified type Vitamin D deficiency CBC WITHOUT DIFFERENTIAL Routine 05/08/2020 9:55 AM DIRECTOR SALES Screening for endocrine, metabolic, and immunity disorder TSH Routine 05/08/2020 9:55 AM DIRECTOR SALES Fatigue, unspecified type LIPID PANEL Routine 05/08/2020 9:55 AM DIRECTOR SALES Screening for endocrine, metabolic, and immunity disorder COMPREHENSIVE METABOLIC PANEL Routine 05/08/2020 9:55 AM DIRECTOR SALES Screening for endocrine, metabolic, and immunity disorder documented in this encounter Results * ABO/Rh (05/08/2020 9:55 AM DIRECTOR SALES) ABO typing O [facility] Rho(D) typing RH(D) POSITIVE [facility] Comment: For additional information, please refer to http://education.Cuyana.First Wind/faq/MHB135 (This link is being provided for informational/ educational purposes only.) ? Your request to have a duplicate copy faxed has been acknowledged. ?Queued to: ??[id number] 05/08/2020 9:55 AM DIRECTOR SALES 05/08/2020 9:59 AM DIRECTOR SALES Narrative [facility] - 05/09/2020 2:45 PM DIRECTOR SALES COLLECTION KIT GIVEN TO PATIENT. PATIENT ADVISED TO RETURN. us Anne Villatoro MD LAB BLOOD BANK TEST ORDERABL ES Final Result [facility] [address] [id number] * Vitamin D 25 hydroxy (05/08/2020 9:55 AM DIRECTOR SALES) Pathologist [facility] Vitamin D 25-OH 32 30 - 100 ng/mL [facility] Comment: Vitamin D Status ? 25-OH Vitamin D: Deficiency: ?<20 ng/mL Insufficiency: ? 20 - 29 ng/mL Optimal: ? > or = 30 ng/mL For 25-OH Vitamin D testing on patients on D2-supplementation and patients for whom quantitation of D2 and D3 fractions is required, the [facility](TM) 25-OH VIT D, (D2,D3), LC/MS/MS is recommended: order code 55153 (patients >2yrs). See Note 1 Note 1 For additional information, please refer to http://education.G-volution/faq/TUS161 (This link is being provided for informational/ educational purposes only.) Blood specimen (specimen) 05/08/2020 9:55 AM DIRECTOR SALES 05/08/2020 9:59 AM DIRECTOR SALES Narrative [facility] - 05/09/2020 2:45 PM DIRECTOR SALES COLLECTION KIT GIVEN TO PATIENT. PATIENT ADVISED TO RETURN. us Anne Villatoro MD LAB BLOOD ORDERABLES Final R esult [facility] [address] [place] [address] * (ABNORMAL) Urinalysis reflex to microscopic and culture Urine, clean voided (05/08/2020 9:55 AM DIRECTOR SALES) [facility] Color, ur YELLOW YELLOW [facility] Appearance, ur CLEAR CLEAR [facility] Specific gravity 1.020 1.001 - 1.035 [facility] pH, ur 5.5 5.0 - 8.0 [facility] Glucose, ur NEGATIVE NEGATIVE [facility] Bilirubin, ur NEGATIVE NEGATIVE [facility] Ketones, ur NEGATIVE NEGATIVE [facility] Blood, ur NEGATIVE NEGATIVE [facility] Protein, ur, quant NEGATIVE NEGATIVE [facility] Nitrites, ur NEGATIVE NEGATIVE [facility] Leukocyte esterase, ur NEGATIVE NEGATIVE [facility] WBC, ur NONE SEEN < OR = 5 /HPF [facility] RBC, ur NONE SEEN < OR = 2 /HPF [facility] Epithelial cells, squamous, ur 6-10(A) < OR = 5 /HPF [facility] Epithelial cells, transitional CANCELED < OR = 5 /HPF [facility] Comment:Result canceled by t he ancillary. Epithelial cells, renal, ur CANCELED < OR = 3 /HPF [facility] Comment:Result canceled by t he ancillary. Bacteria, ur, quant NONE SEEN NONE SEEN /HPF [facility] Calcium oxalate crystals, ur MODERATE(A) NONE OR FEW /HPF [facility] Triple phosphate crystals, ur CANCELED NONE OR FEW /HPF [facility] Comment:Result canceled by t he ancillary. Uric acid crystals, ur CANCELED NONE OR FEW /HPF [facility] Comment:Result canceled by t he ancillary. Amorphous crystals, ur CANCELED NONE OR FEW /HPF [facility] Comment:Result canceled by t he ancillary. Crystals, ur CANCELED NONE SEEN /HPF [facility] Comment:Result canceled by t he ancillary. Hyaline cast NONE SEEN NONE SEEN /LPF [facility] Granular casts, ur CANCELED NONE SEEN /LPF [facility] Comment:Result canceled by t he ancillary. Casts CANCELED NONE SEEN /LPF [facility] Comment:Result canceled by t he ancillary. Yeast, ur CANCELED NONE SEEN /HPF [facility] Comment:Result canceled by t he ancillary. Comments CANCELED [facility] Comment:Result canceled by t he ancillary. Note CANCELED [facility] Comment:Result canceled by t he ancillary. Urine culture [facility] Comment:NO CULTURE INDICATED Urine, clean voided 05/08/2020 9:55 AM DIRECTOR SALES 05/08/2020 9:59 AM DIRECTOR SALES Narrative [facility] - 05/09/2020 2:45 PM DIRECTOR SALES COLLECTION KIT GIVEN TO PATIENT. PATIENT ADVISED TO RETURN. us Anne Villatoro MD LAB MICROBIOLOGY - GENERAL O RDERABLES Final Result [facility] [address] [facility] [place] [address] * (ABNORMAL) Lipid panel (05/08/2020 9:55 AM DIRECTOR SALES) Cholesterol 235(H) <200 mg/dL [facility] HDL 67 > OR = 50 mg/dL [facility] Triglycerides 118 <150 mg/dL [facility] LDL 144(H) mg/dL (calc) [facility] Comment: Reference [...] LDL-C. Javier SS et al. DEMIAN. 2013;310(19): 5524-6526 (http://education.Cuyana.First Wind/faq/DBP726) Chol/HDL ratio 3.5 <5.0 (calc) [facility] Non-HDL, (LDL+VLDL) 168(H) <130 mg/dL (calc) [facility] Comment: For patients with diabetes plus 1 major ASCVD risk factor, treating to a non-HDL-C goal of <100 mg/dL (LDL-C of <70 mg/dL) is considered a therapeutic option. Blood specimen (specimen) 05/08/2020 9:55 AM DIRECTOR SALES 05/08/2020 9:59 AM DIRECTOR SALES Narrative [facility] - 05/09/2020 2:45 PM DIRECTOR SALES COLLECTION KIT GIVEN TO PATIENT. PATIENT ADVISED TO RETURN. us Anne Villatoro MD LAB BLOOD ORDERABLES Final R esult [facility] [address] [id number] * Comprehensive metabolic panel (05/08/2020 9:55 AM DIRECTOR SALES) Glucose 92 65 - 99 mg/dL [facility] Comment: ? Fasting reference interval BUN 17 7 - 25 mg/dL [facility] Creatinine 0.72 0.50 - 0.99 mg/dL [facility] Comment: For patients >49 years of age, the reference limit for Creatinine is approximately 13% higher for people identified as -Samoan. eGFR NON-AFR. GRENADIAN 87 > OR = 60 mL/min/1 .73m2 [facility] EGFR 100 > OR = 60 mL/min/1 .73m2 [facility] BUN/creat ratio NOT APPLICABLE 6 - 22 (calc) [facility] Sodium 143 135 - 146 mmol/L [facility] Potassium, pl 4.3 3.5 - 5.3 mmol/L [facility] Chloride 104 98 - 110 mmol/L [facility] CO2 32 20 - 32 mmol/L [facility] Calcium 9.4 8.6 - 10.4 mg/dL [facility] Protein, sr 6.7 6.1 - 8.1 g/dL [facility] Albumin 4.5 3.6 - 5.1 g/dL [facility] GLOBULIN 2.2 1.9 - 3.7 g/dL (calc) [facility] Alb/glob ratio 2.0 1.0 - 2.5 (calc) [facility] Bilirubin, total 0.5 0.2 - 1.2 mg/dL [facility] Alk phos 56 37 - 153 U/L [facility] AST 24 10 - 35 U/L [facility] ALT (SGPT) 19 6 - 29 U/L [facility] Blood specimen (specimen) 05/08/2020 9:55 AM DIRECTOR SALES 05/08/2020 9:59 AM DIRECTOR SALES Narrative [facility] - 05/09/2020 2:45 PM DIRECTOR SALES COLLECTION KIT GIVEN TO PATIENT. PATIENT ADVISED TO RETURN. Anne Villatoro MD LAB BLOOD ORDERABLES Final R [facility] Performing Organization Address City/[facility]/ZIP Co de Phone Number [facility] [address] [place] [address] * (ABNORMAL) CBC without differential (05/08/2020 9:55 AM DIRECTOR SALES) WBC 4.3 3.8 - 10.8 Thousand/uL [facility] RBC, POC 4.10 3.80 - 5.10 Million/uL [facility] Hgb 14.3 11.7 - 15.5 g/dL [facility] Hct 40.7 35.0 - 45.0 % [facility] MCV 99.3 80.0 - 100.0 fL [facility] MCH 34.9(H) 27.0 - 33.0 pg [facility] MCHC 35.1 32.0 - 36.0 g/dL [facility] Rdw 11.8 11.0 - 15.0 % [facility] Platelets 276 140 - 400 Thousand/uL [facility] MPV 10.9 7.5 - 12.5 fL [facility] Blood specimen (specimen) 05/08/2020 9:55 AM DIRECTOR SALES 05/08/2020 9:59 AM DIRECTOR SALES Narrative [facility] - 05/09/2020 2:45 PM DIRECTOR SALES COLLECTION KIT GIVEN TO PATIENT. PATIENT ADVISED TO RETURN. Anne Villatoro MD LAB BLOOD ORDERABLES Final R esult Performing Organization Address City/[facility]/ZIP Co de Phone Number [facility] [address] [place] [address] * TSH (05/08/2020 9:55 AM DIRECTOR SALES) Pathologist [facility] TSH 3.19 0.40 - 4.50 mIU/L [facility] Blood specimen (specimen) 05/08/2020 9:55 AM DIRECTOR SALES 05/08/2020 9:59 AM DIRECTOR SALES Narrative [facility] - 05/09/2020 2:45 PM DIRECTOR SALES COLLECTION KIT GIVEN TO PATIENT. PATIENT ADVISED TO RETURN. Anne Villatoro MD LAB BLOOD ORDERABLES Final R esult Performing Organization Address [facility] Co de Phone Number [facility] [address] [place] [address] * Hepatitis C antibody (05/08/2020 9:55 AM DIRECTOR SALES) [facility] Hep C Ab NON-REACTI VE NON-REACT SHIRAZ [facility] SIGNAL TO CUT-OFF 0.02 <1.00 [facility] Comment: HCV antibody was non-reactive. There is no laboratory evidence of HCV infection. In most cases, no further action is required. However, if recent HCV exposure is suspected, a test for HCV RNA (test code 13117) is suggested. For additional information please refer to http://education.shenzhoufu/faq/YDV25f0 (This link is being provided for informational/ educational purposes only.) Blood specimen (specimen) 05/08/2020 9:55 AM DIRECTOR SALES 05/08/2020 9:59 AM DIRECTOR SALES Narrative [facility] - 05/09/2020 2:45 PM DIRECTOR SALES COLLECTION KIT GIVEN TO PATIENT. PATIENT ADVISED TO RETURN. Anne Villatoro MD LAB MICROBIOLOGY - GENERAL O RDERABLES Final Result Performing Organization Address [facility] Co de Phone Number [facility] [address] [place] [address] documented in this encounter Visit Diagnoses Diagnosis Encounter for hepatitis C screening test for low risk patient- Primary Colon cancer screening Special screening for malignant neoplasms, colon Screening for endocrine, metabolic, and immunity disorder Fatigue, unspecified type Vitamin D deficiency documented in this encounter Orders Lab Orders Without Results Count Last Ordered D ate First Ordered Date FIT OCCULT BLOOD, FECAL 1 04/10/2020 documented in this encounter Care Teams Adding Machine Mechanic Relationship Specialty Start Date End Date Anne Villatoro MD [address] [place] [address] PCP - General Internal Medicine 11/09/18 James Peraza MD [address] [address] Referring Physician Obstetrics and Gynecology 11/09/18 08/04/22 González Moser, ABILIO [address] [place] [address] Ophthalmology 04/10/20 documented as of this encounter
--- OUTSIDE RECORDS SUMMARY | 2024-04-15 23:02 | XMS_ITS | Encounter Summary ---
Author Organization [facility] Address [address] [address] Care Team Providers Care Inspector Wire Rope Name Role Phone Anne Villatoro MD Primary Care Provider + [phone] James Peraza MD Unavailable + [phone] González Moser OD Unavailable [phone] Encounter Details Date Type Department Care Team (Late st Contact Info) Description 04/10/2020 Orders Only [facility] Primary Care [address] [address] Anne Villatoro MD [address] [address] Post-menopausal (Primary Dx); Family history of colon cancer in mother Social History Tobacco Use Types Packs/Day Years [...] on file Legal Sex Female 7:33 PM SCRUB WOMAN Gender Identity Not on file Sexual Orientation Not on file documented as of this encounter Progress Notes * Katharina Kowalski MA - 04/10/2020 9:13 AM CST BOM B WOMAN documented in this encounter Plan of Treatment Not on file documented as of this encounter Visit Diagnoses Diagnosis Post-menopausal- Primary Asymptomatic postmenopausal status (age-related) (natural) Family history of colon cancer in mother documented in this encounter Care Teams Inspector Wire Rope Relationship Specialty Start Date End Date Anne Villatoro MD [address] [place] [id number] PCP - General Internal Medicine 11/09/18 James Peraza MD [address] [phone] Referring Physician Obstetrics and Gynecology 11/09/18 08/04/22 González Moser, ABILIO [address] [place], [place] [address] Ophthalmology 04/10/20 documented as of this encounter
--- OUTSIDE RECORDS SUMMARY | 2024-04-15 23:02 | XMS_ITS | Encounter Summary ---
Author Organization [facility] Address [address] [facility] [address] [place] [address] Care Team Providers Care Base Brander Name Role Phone Anne Villatoro MD Primary Care Provider + [phone] James Peraza MD Unavailable + [phone] González Moser OD Unavailable [phone] Carlos Antony MD Unavailable [phone] Reason for Visit * Reason Comments New Patient Referred by Dr. Loretta watts for a stress test. Fam hx of CAD * Consultation (Routine) - Closed Specialty Diagnoses / Procedures Referred By Brandie dunn Referred To Contact Cardiology Diagnoses Hypertension, essential Atypical chest pain Anne Villatoro MD [address] [address] Phone: tel: fax: Esha Madrid MD [address] [address] Phone: tel: fax: Referral ID Status Reason Start Date Expiration Date V isits Requested Visits Authorized [id number] Closed Specialty Services Required 05/01/2022 05/31/2023 1 1 Encounter Details Date Type Department Care Team (Late st Contact Info) Description 06/17/2022 10:30 AM LEAD POURER Office Visit [facility] Cardiology [address] [facility] [address] [place] [address] Esha Madrid MD [address] [facility] [address] [facility] [place] [address] Family history of early CAD (Primary Dx); Hypertension, essential; Atypical chest pain Social History Tobacco Use Types Packs/Day Years [...] on file Legal Sex Female 7:33 PM LEAD POURER Gender Identity Not on file Sexual Orientation Not on file documented as of this encounter Last Filed Vital Signs Vital Sign Reading Time Taken Comments Blood Pressure 116/70 06/17/2022 10:22 AM LEAD POURER Pulse 80 06/17/2022 10:22 AM LEAD POURER Temperature - - Respiratory Rate - - Oxygen Saturation 94% 06/17/2022 10:22 AM LEAD POURER Inhaled Oxygen Concentration - - Weight 60 kg (132 lb 3.2 oz) 06/17/2022 10:22 AM LEAD POURER Height 154.9 cm (5' 1 ) 06/17/2022 10:22 AM LEAD POURER Body Mass Index 24.98 06/17/2022 10:22 AM LEAD POURER documented in this encounter Ordered Prescriptions Prescription Sig Dispense Quantity Refills Last Filled Start Date End Date amLODIPine (NORVASC) 5 mg tabletIndications: Hypertension, essential Take 1 tablet (5 mg total) by mouth daily 90 tablet 3 06/17/2022 06/23/2023 documented in this encounter Progress Notes * Esha Madrid MD - 06/17/2022 10:30 AM CST [facility] CARDIOLOGY DATE OF VISIT: 06/17/2022 CHIEF COMPLAINT Chief Complaint Patient presents with ??? New Patient Referred by Dr. Villatoro for a stress test. Fam hx of CAD HPI Lucy Mcallister is a 72 y.o. female with past medical history of [...] per week and denies exertional chest pain. MEDICAL HISTORY Past Medical History: Diagnosis Date [...] Partners: Male control/protection: Post-menopausal Alcohol Use: Not on file Family History Problem Relation Age of Onset ??? Colon cancer Mother ??? Macular degeneration Mother ??? Cancer Mother ??? COPD Mother ??? Heart attack Father ??? Alcohol abuse Father ??? Heart disease Father ??? Heart disease Sister ??? Macular degeneration Brother ??? Stroke Brother ??? Hypertension Brother MEDICATIONS Current Outpatient Medications [...] as needed) 45 tablet 1 ??? vit C,I-Eq-ucbyt-lutein-zeaxan [phone] cn-ekhe-pn-mg capsule Take 1 tablet by mouth daily [...] allergies and hives. PHYSICAL EXAM Vitals BP 116/70 (BP Location: Left arm, Patient Position: Sitting) Pulse 80 Ht 154.9 cm (5' 1 ) Wt 60 kg (132 lb 3.2 oz) SpO2 94% BMI 24.98 kg/m?? Body mass index is 24.98 kg/m??. Physical Exam Constitutional: General: She is [...] TESTS Lab Results Component Value Date WBC 4.3 10/17/2021 HGB 14.5 10/17/2021 HCT 42.0 10/17/2021 MCV 102.4 (H) 10/17/2021 Chemistry Component Value Date/Time SODIUM 138 10/17/2021 1143 POTASSIUM 4.6 10/17/2021 1143 CHLORIDE 102 10/17/2021 1143 CO2 31 10/17/2021 1143 BUNSER 23 10/17/2021 1143 CREATININE 0.90 10/17/2021 1143 GLUCOSE 87 10/17/2021 1143 Component Value Date/Time CALCIUM 9.5 10/17/2021 1143 ALKPHOS 45 10/17/2021 1143 AST 20 10/17/2021 1143 ALT 16 10/17/2021 1143 BILITOT 0.5 10/17/2021 1143 Lab Results Component Value Date CHOL 232 (H) 10/17/2021 CHOL 235 (H) 05/08/2020 CHOL 211 (H) 05/25/2018 Lab Results Component Value Date HDL 73 10/17/2021 HDL 67 05/08/2020 HDL 65 05/25/2018 No results found for: LDLCALC Lab Results Component Value Date TRIG 97 10/17/2021 TRIG 118 05/08/2020 TRIG 84 05/25/2018 Lab Results Component Value Date CHOLHDL 3.2 10/17/2021 CHOLHDL 3.5 05/08/2020 EKG May 01, 2022 sinus rhythm ASSESSMENT Diagnoses and all orders for this visit: Family history of early CAD (Primary) Hypertension, essential - Ambulatory referral to Cardiology - amLODIPine (NORVASC) 5 mg tablet; Take 1 tablet (5 mg total) by mouth daily Atypical chest pain - Ambulatory referral to Cardiology PLAN/RECOMMENDATIONS In regards to hypertension, her blood pressure appears to be controlled 116/70. Couple months ago was started on amlodipine 5 mg daily. Continue to monitor. In regards to family history of CAD, patient denies exertional chest pain. She does admit to episodes of acid indigestion. EKG is normal. She walks 3-4 miles 5 times per week and denies exertional chest pain. Continue to monitor at this time. In regards to chest discomfort, feels more like acid indigestion. Given family history will recommend to perform treadmill exercise stress test to reassure the patient. In regards to history of hyperlipidemia, last lipid panel checked October 17, 2021 shows LDL 97, HDL 73, triglycerides 139. She is not on statins. Follow up in the office in in 6 months. Esha Madrid MD documented in this encounter Plan of Treatment Not on file documented as of this encounter Visit Diagnoses Diagnosis Family history of early CAD- Primary Family history of ischemic heart disease Hypertension, essential Unspecified essential hypertension Atypical chest pain Other chest pain documented in this encounter Discontinued Medications Medication Sig Discontinue Reason Start Date End Da te amLODIPine (NORVASC) 5 mg tablet Take 1 tablet (5 mg total) by mouth daily Reorder 04/25/2022 06/17/2022 documented as of this encounter Orders Outpatient Referral Count Last Ordered Date Fir st Ordered Date AMB REFERRAL TO CARDIOLOGY 1 06/17/2022 documented in this encounter Care Teams Base Brander Relationship Specialty Start Date End Date Anne Villatoro MD [address] [facility] [address] [place] [address] PCP - General Internal Medicine 11/09/18 James Peraza MD [address] [facility] [address] [place], [place] [phone] Referring Physician Obstetrics and Gynecology 11/09/18 08/04/22 González Moser OD [address] [place], [place] [address] Ophthalmology 04/10/20 Carlos Antony MD [address] [place], [place] [id number] Dermatology 01/12/21 documented as of this encounter
--- OUTSIDE RECORDS SUMMARY | 2024-04-15 23:02 | XMS_ITS | Encounter Summary ---
Author Organization [facility] Address [address] [facility] [address] [place] [address] Care Team Providers Care Mold Breaker Name Role Phone Anne Villatoro MD Primary Care Provider + [phone] James Peraza MD Unavailable + [phone] Encounter Details Date Type Department Care Team (Late st Contact Info) Description 11/09/[address] [facility] Internal Medicine [address] [facility] [address] [place] [address] Anne Villatoro MD [facility] [address] Screening for endocrine, metabolic, and immunity disorder (Primary Dx) Social History Tobacco Use Types Packs/Day Years [...] on file Legal Sex Female 7:33 PM FRUIT RAISER Gender Identity Not on file Sexual Orientation Not on file documented as of this encounter Plan of Treatment Scheduled Orders Name Type Priority Associated Diagnoses Orde r Schedule CBC without differential Lab Routine Screening for endocrine, metabolic, and immunity disorder Expected: 10/13/2019, Expires: 12/11/2019 Urinalysis reflex to microscopic and culture Urine, clean voided Microbiology Routine Screening for endocrine, metabolic, and immunity disorder Expected: 10/13/2019 (Approximate), Expires: 12/11/2019 Lipid panel Lab Routine Screening for endocrine, metabolic, and immunity disorder Expected: 10/13/2019, Expires: 12/11/2019 Comprehensive metabolic panel Lab Routine Screening for endocrine, metabolic, and immunity disorder Expected: 10/13/2019, Expires: 12/11/2019 documented as of this encounter Visit Diagnoses Diagnosis Screening for endocrine, metabolic, and immunity disorder- Primary documented in this encounter Care Teams Mold Breaker Relationship Specialty Start Date End Date Anne Villatoro MD [address] [place] [address] [phone] PCP - General Internal Medicine 11/09/18 James Peraza MD [address] [place] [phone] Referring Physician Obstetrics and Gynecology 11/09/18 08/04/22 documented as of this encounter
--- OUTSIDE RECORDS SUMMARY | 2024-04-15 23:02 | XMS_ITS | Encounter Summary ---
Author Organization [facility] Address [address] [address] Care Team Providers Care Television Audio Engineer Name Role Phone Anne Villatoro MD Primary Care Provider + [phone] James Peraza MD Unavailable + [phone] González Moser OD Unavailable [phone] Reason for Visit * Reason Comments Medicare Annual Wellness Visit Subsequen t Encounter Details Date Type Department Care Team (Late st Contact Info) Description 04/10/2020 8:00 AM CONFERENCE TRANSLATOR Office Visit [facility] Primary Care [address] [address] Anne Villatoro MD [address] [address] Medicare annual wellness visit, subsequent (Primary Dx); Risk for falls; Chronic insomnia; Family history of macular degeneration; Family history of colon cancer in mother [...] on file Legal Sex Female 7:33 PM CONFERENCE TRANSLATOR Gender Identity Not on file Sexual Orientation Not on file documented as of this encounter Last Filed Vital Signs Vital Sign Reading Time Taken Comments Blood Pressure 122/70 04/10/2020 8:07 AM CONFERENCE TRANSLATOR Pulse 73 04/10/2020 8:07 AM CONFERENCE TRANSLATOR Temperature 36.7 ??C (98.1 ??F) 04/10/2020 8:07 AM CS T Respiratory Rate - - Oxygen Saturation 97% 04/10/2020 8:07 AM CONFERENCE TRANSLATOR Inhaled Oxygen Concentration - - Weight 60.1 kg (132 lb 9.6 oz) 04/10/2020 8:07 A M CONFERENCE TRANSLATOR Height 154.9 cm (5' 1 ) 04/10/2020 8:07 AM CONFERENCE TRANSLATOR Body Mass Index 25.05 04/10/2020 8:07 AM CONFERENCE TRANSLATOR documented in this encounter Patient Instructions * Patient Instructions* Anne Villatoro MD - 04/10/2020 8:00 AM CONFERENCE TRANSLATOR Chronic insomnia Good sleep hygiene. Continue trazodone prn and melatonin prn Medicare annual wellness visit, subsequent Reviewed previous [...] and establishing or updating healthcare power of research attorney document and providing our office with a copy. Please give the patient papers with information on Advanced Directives, Healthcare Power of Recruiter and Living Will to complete and bring back to the office for their medical records. For comprehensive documentation of your Healthcare directives, I recommend that you fill out paperwork for 5 WISHES online at [email or web address] and return a copy of the completed forms to my office. Risk for falls Patient at risk for falls due to age and co morbidities. Fall prevention discussed c patient in detail. Exercises for balance and coordination, keep LE muslces toned and strong. Family history of colonic polyps Stool for FIT due 5 yr ff up screening due Refer to Dr Colin, patient is sched in may 2020 Family history of colon cancer in mother Dr Colin, Colonoscopy 02/26/2015 normal, due q [address] Colin, patient is sched in may 2020 Family history of macular degeneration Cont annual eye exams with Dr Quiles ERENCE TRANSLATOR documented in this encounter Progress Notes * Anne Villatoro MD - 04/10/2020 8:00 AM CST Images from the original note were not included. MEDICARE SUBSEQUENT ANNUAL WELLNESS VISIT Patient ID: Lucy Mcallister is a 69 y.o. female. Visit date: 04/10/2020 Medicare Health Risk Assessment Basic Information In general, would you say your health is: Excellent Do you have an Advanced Directive (Living Will) and/or Durable Power of Recruiter?: No Would you like information regarding Advanced Directiv (Living Will) and/or Durable Power of Recruiter?: Yes Do you have trouble hearing the television [...] Taking and/or getting your own medications: No Depression Screen: PHQ Screening Over the last [...] Down, Depressed, or Hopeless: Not at all Trouble Falling or Staying Asleep, or Sleeping too Much: More than half the days Feeling Tired or Having Little Energy: Several days Poor Appetite or Overeating: Not at all [...] Way: Not at all PHQ-9 Total Score: 3 If you checked off any problems, how difficult have these problems made it for you to do your work,take care of things at home, or get along with other people?: Not difficult at all Audio/Visual screen: Normal Wears glasses Dr Moser Early cataracts, affecting night vision lately No Mac Deg or Glaucoma Is the patient having any problems with hearing and/or vision? No STEADI Fall Risk Screening: In the past year, patient experienced: One [...] No Often feels sad or depressed: No Does not go to the GYM Walks regularly Up and Go Test: Patient was unsteady or time test was longer than 30 seconds? No Chief complaint: Medicare Annual Wellness Visit Subsequent HPI: Lucy Mcallister returns today for Annual Medicare Examination, Medication Refill Management, discussion of Chronic Medical Problems associated orders and medications as well as Her concerns detailedin this HPI. Issues discussed today included all new lab orders for the next follow-up visit, results of currentlab work, Annual Health Maintenance Recommendations and a review of active and discontinued medication prescriptions The patient is independent of all ALDs and MR ADLs ORDERS FROM LAST VISIT Reviewed today DETAILS REGARDING THIS VISIT: Lucy reports feeling well overall Got sick in november with COVID infection, mild course Hungry all the time, wants thyroid checked Gained 10 lbs since last here a yr ago, although has not been going to the gym due to COVID pandemic Wants to know her blood type Is scheduled for colonoscopy in may with Dr Colin Problem List, Past Medical and Surgical History: Patient Active Problem List Diagnosis ??? Chronic insomnia ??? Medicare annual wellness visit, subsequent ??? Risk for falls ??? Family history of colon cancer in mother ??? COVID-19 virus infection ??? Family history of macular degeneration ??? Refused influenza vaccine Past Medical History: Diagnosis Date ??? Persistent insomnia Past Surgical History: Procedure Laterality Date ??? TUBAL LIGATION Family History: Family History [...] file Occupational History ??? Not on file Social Needs ??? Financial resource strain: Not on file ??? Food insecurity Worry: Not on file Inability: Not on file ??? Transportation needs Medical: Not on file Non-medical: Not on file Tobacco Use ??? Smoking status: Never Smoker ??? Smokeless tobacco: Never Used Substance and Sexual Activity ??? Alcohol use: Yes Frequency: Monthly or less ??? Drug use: Never ??? Sexual activity: Defer Lifestyle ??? Physical activity Days per week: Not on file Minutes per session: Not on file ??? Stress: Not on file Relationships ??? Social connections Talks on phone: Not on file Gets together: Not on file Attends temple service: Not on file Active member of club or organization: Not on file Attends meetings of clubs or organizations: Not on file Relationship status: Not on file ??? Intimate partner violence Fear of current or ex partner: Not on file Emotionally abused: Not on file Physically abused: Not on file Forced sexual activity: Not on file Other Topics Concern ??? Not on file Social History Narrative ??? Not on file Allergies: No Known Allergies Medications: Current Outpatient Medications: ??? ASCORBIC ACID-ASCORBATE CALC ORAL, 500 mg daily, Disp: , Rfl: ??? calcium carbonate/vitamin D3 (CALCIUM 500 + D ORAL), 600 mg daily, Disp: , Rfl: ??? cholecalciferol, vitamin D3, (CHOLECALCIFEROL, VIT D3,,BULK, MISC), 1,000 Units daily, Disp: , Rfl: ??? cyanocobalamin (Vitamin B-12) 1,000 mcg tablet, daily, Disp: , Rfl: ??? melatonin tablet, 3 mg daily, Disp: , Rfl: ??? multivitamin capsule, Take 1 capsule by mouth daily, Disp: , Rfl: ??? traZODone (DESYREL) 50 mg tablet, Take 1 tablet (50 mg total) by mouth nightly, Disp: 45 tablet, Rfl: 3 ??? vit C,W-Hm-jdbxy-lutein-zeaxan [id number] sj-nkhy-am-mg capsule, Take 1 tablet by mouth daily, Disp: , Rfl: Review of Systems: Review of Systems Constitutional: Negative for fever and unexpected weight change. HENT: Negative for trouble swallowing and voice change. Eyes: Negative for pain and visual disturbance. Respiratory: Negative for cough and shortness of breath. Cardiovascular: Negative for chest pain, palpitations and leg swelling. Gastrointestinal: Negative for blood in stool and nausea. Genitourinary: Negative for frequency and urgency. Musculoskeletal: Negative for gait problem and myalgias. Neurological: Negative for dizziness and headaches. Psychiatric/Behavioral: Positive for sleep disturbance. Negative for agitation and confusion. No results found for this or any previous visit (from the past 1008 hour(s)). Vitals: Vitals BP 122/70 (BP Location: Right arm, Patient Position: Sitting) Pulse 73 Temp 36.7 ??C (98.1 ??F) (Temporal) Ht 154.9 cm (5' 1 ) Wt 60.1 kg (132 lb 9.6 oz) SpO2 97% BMI 25.05 kg/m?? Body mass index is 25.05 kg/m??. Exam: Physical Exam Vitals signs and nursing note reviewed. Constitutional: General: She is not in acute distress. Appearance: Normal appearance. She is well-developed. HENT: Head: Normocephalic and atraumatic. Right Ear: Tympanic membrane normal. Left Ear: Tympanic membrane normal. Nose: Nose normal. Eyes: Extraocular Movements: Extraocular movements intact. Conjunctiva/sclera: Conjunctivae normal. Pupils: Pupils are equal, round, and reactive to light. Neck: Musculoskeletal: Normal range of motion and neck supple. Thyroid: No thyromegaly. Cardiovascular: Rate and Rhythm: Normal rate and regular rhythm. Pulses: Normal pulses. Heart sounds: Normal heart sounds. No murmur. No friction rub. No gallop. Pulmonary: Effort: Pulmonary effort is normal. Breath sounds: Normal breath sounds. Abdominal: General: Bowel sounds are normal. Palpations: Abdomen is soft. Tenderness: There is no abdominal tenderness. Musculoskeletal: Normal range of motion. General: No deformity. Right lower leg: No edema. Left lower [...] (Obstetrics and Gynecology) González Moser OD (Ophthalmology) Primary Pharmacy/DME suppliers: [id number] - [place], [place] - [address] [facility] [address] [facility] [phone] Detection of Cognitive Impairment: The patient does not have cognitive impairment based on direct observation, discussion with patientor family, or review of medical records. CDT normal Health Maintenance: Health Maintenance Topics with due status: Overdue Topic Date Due Hepatitis C Screening 1950 Osteoporosis Screening-Bone Density Scan 02/02/2018 Pneumococcal (PCV13 & PPSV23) 65+ yrs 11/10/2019 Health Maintenance Topics with due status: Not Due Topic Last Completion Date Colon Cancer Screening-Colonoscopy 04/28/2013 DTaP/Tdap/Td Vaccine 10/07/2016 Breast Cancer Screening-Mammogram 02/18/2020 Fall Risk Assessment 04/10/2020 Depression Screening-PHQ 04/10/2020 Regular Well Visit/Exam 04/10/2020 Health Maintenance Topics with due status: Completed Topic Last Completion Date Zoster Vaccines 09/23/2018 Health Maintenance Topics with due status: Discontinued Topic Date Due Influenza Vaccine Discontinued Counseling and Referral of Preventative Services: Lifestyle Recommendations Increase Physical Activity and Improve Diet Advanced Directive Durable Power of Recruiter: NO Living Will : NO Assessment and Plan: Diagnoses and all orders [...] and establishing or updating healthcare power of research attorney document and providing our office with a copy. Please give the patient papers with information on Advanced Directives, Healthcare Power of Recruiter and Living Will to complete and bring back to the office for their medical records. For comprehensive documentation of your Healthcare directives, I recommend that you fill out paperwork for 5 WISHES online at [email or web address] and return a copy of the completed forms to my office. Risk for falls Assessment & Plan: Patient at risk for falls due to age and co morbidities. Fall prevention discussed c patient in detail. Exercises for balance and coordination, keep LE muslces toned and strong. Chronic insomnia Assessment & Plan: Good sleep hygiene. Continue trazodone prn and melatonin prn Family history of macular degeneration Assessment & Plan: Cont annual eye exams with Dr Quiles Family history of colon cancer in mother Assessment & Plan: Dr Colin, Colonoscopy 02/26/2015 normal, due q [address] Colin, patient is sched in may 2020 Other orders - Pneumococcal polysaccharide vaccine 23-valent greater than or equal to 2yo subcutaneous/IM (PNEUMOVAX) OV 1 yr for annual [facility] [place] Hep c ab screen, blood type, TSH, cbc, cmp, lipids, ua fasting soon, 25 oh vit d due soon Dexa scan due Pneumovax 23 due Patient here for annual Medicare wellness visit and for review of complete medical problem list. All the elements of the plan were completed as outlined by CMS. A copy of the prevention plan was given to the patient. I reviewed Medicare Wellness Questionnaire (other physicians involved in care, depression screen, advanced directives), cognitive/memory, and functional assessment. Forms scanned in progress notes. I reviewed and updated the complete problem list, medication list, family history, and immunization records with the patient. I provided preventive counseling and early detection interventions to the patient through health maintenance update and summary of today's office visit. Anne Villatoro MD This note is dictated and transcribed by [employer]. Shearing Machine Tender variances may occur. Despite proofreading, typographical errors may occur. ERENCE TRANSLATOR documented in this encounter Miscellaneous Notes * Assessment & Plan Note - Anne Villatoro MD - 04/10/2020 8:56 AM CONFERENCE TRANSLATOR Associated Problem(s): Refused influenza vaccine Has never been vaccinated for flu, continues to decline. ERENCE TRANSLATOR * Assessment & Plan Note - Anne Villatoro MD - 04/10/2020 8:38 AM CONFERENCE TRANSLATOR Associated Problem(s): Family history of macular degeneration Cont annual eye exams with Dr Quiles ERENCE TRANSLATOR * Assessment & Plan Note - Anne Villatoro MD - 04/10/2020 8:20 AM CONFERENCE TRANSLATOR Associated Problem(s): Family history of colon cancer in mother Dr Colin, Colonoscopy 02/26/2015 normal, due q [address] Colin, patient is sched in may 2020 ERENCE TRANSLATOR ERENCE TRANSLATOR * Assessment & Plan Note - Anne Villatoro MD - 04/10/2020 8:19 AM CONFERENCE TRANSLATOR Associated Problem(s): Family history of colonic polyps (Deleted) Stool for FIT due 5 yr ff up screening due Refer to Dr Colin, patient is sched in may 2020 ERENCE TRANSLATOR ERENCE TRANSLATOR * Assessment & Plan Note - Anne Villatoro MD - 04/10/2020 8:16 AM CONFERENCE TRANSLATOR Associated Problem(s): Risk for falls Patient at risk for falls due to age and co morbidities. Fall prevention discussed c patient in detail. Exercises for balance and coordination, keep LE muslces toned and strong. ERENCE TRANSLATOR * Assessment & Plan Note - Anne Villatoro MD - 04/10/2020 8:16 AM CONFERENCE TRANSLATOR Associated Problem(s): Medicare annual wellness visit, subsequent [...] and establishing or updating healthcare power of research attorney document and providing our office with a copy. Please give the patient papers with information on Advanced Directives, Healthcare Power of Recruiter and Living Will to complete and bring back to the office for their medical records. For comprehensive documentation of your Healthcare directives, I recommend that you fill out paperwork for 5 WISHES online at [email or web address] and return a copy of the completed forms to my office. ERENCE TRANSLATOR ERENCE TRANSLATOR * Assessment & Plan Note - Anne Villatoro MD - 04/10/2020 8:15 AM CONFERENCE TRANSLATOR Associated Problem(s): Chronic insomnia Good sleep hygiene. Continue trazodone prn and melatonin prn ERENCE TRANSLATOR ERENCE TRANSLATOR documented in this encounter Plan of Treatment Not on file documented as of this encounter Procedures Procedure Name Priority Date/Time Associated Diagnosis Comments COLONOSCOPY Routine 04/28/2013 documented in this encounter Results * COLONOSCOPY (04/28/2013) us Historical Provider HEALTH MAINTENANCE Final Result documented in this encounter Visit Diagnoses Diagnosis Medicare annual wellness visit, subsequent- Primary Risk for falls Chronic insomnia Insomnia, unspecified Family history of macular degeneration Family history of other eye disorders Family history of colon cancer in mother documented in this encounter Historical Medications * This list may reflect changes made after this encounter. vit C,F-Gy-arsvv-lute in-zeaxan [id number] ss-khuq-on-mg capsule Take 1 tablet by mouth daily multivitamin capsule Take 1 capsule by mouth daily 08/11/2023 added in this encounter Orders Immunization/Injection Count Last Ordered Date First Ordered Date PNEUMOCOCCAL POLYSACCHARIDE VACCINE 23-VALENT =>2YO SQ IM 1 04/10/2020 documented in this encounter Care Teams Television Audio Engineer Relationship Specialty Start Date End Date Anne Villatoro MD [address] [place] [address] [address] [place], [place] [phone] PCP - General Internal Medicine 11/09/18 James Peraza MD [address] [phone] Referring Physician Obstetrics and Gynecology 11/09/18 08/04/22 González Moser OD [address] [place] [id number] Ophthalmology 04/10/20 documented as of this encounter
--- OUTSIDE RECORDS SUMMARY | 2024-04-15 23:02 | XMS_ITS | Encounter Summary ---
Author Organization [facility] Address [address] [address] Care Team Providers Care Manager Unit Name Role Phone Anne Villatoro MD Primary Care Provider + [phone] James Peraza MD Unavailable [phone] González Moser OD Unavailable [phone] Carlos Antony MD Unavailable [phone] Reason for Visit * Reason Onset Date Comments Call Back 04/25/2022 Medical Question/Miscellaneous 04/25/2022 Encounter Details Date Type Department Care Team ([facility] st Contact Info) Description 04/25/2022 Telephone [facility] Primary Care [address] [phone] Anne Villatoro MD [facility] [address] Call Back; Medical Question/Miscellaneous Social History Tobacco Use Types Packs/Day Years [...] on file Legal Sex Female 7:33 PM HAND GLOVE CLEANER Gender Identity Not on file Sexual Orientation Not on file documented as of this encounter Miscellaneous Notes * Telephone Encounter - Kasandra Byers - 04/25/2022 1:49 PM CST Medical Question/Miscellaneous Caller???s Concern: Patient called to check status of advise on HTN. There were some extensive note/instructions listed in another front desk person encounter that Dr. Villatoro's team is to relay to the patientincluding rx information and f/u instructions. Warm transferred to Nikkie at back line to explain Caller???s Call back #: [phone] Does message need to be routed?Yes-Action Needed GLOVE CLEANER * Telephone Encounter - Nikkie Farooq MA - 04/25/2022 10:22 AM HAND GLOVE CLEANER Sent to in another encounter waiting on response GLOVE CLEANER * Telephone Encounter - Anita Méndez - 04/25/2022 9:30 AM CST Call Back Caller???s Concern: Patient called in regards to Triage call on 04/24/22. Advised was routed to Provider and waiting on response. Call back requested. Caller???s Call back #: [phone] Does message need to be routed? Yes-Action Needed GLOVE CLEANER documented in this encounter Plan of Treatment Not on file documented as of this encounter Visit Diagnoses Not on filedocumented in this encounter Care Teams Manager Unit Relationship Specialty Start Date End Date Anne Villatoro MD [address] [place] [id number] PCP - General Internal Medicine 11/09/18 James Peraza MD [address] [address] Referring Physician Obstetrics and Gynecology 11/09/18 08/04/22 González Moser, OD [address] [place], [place] [phone] Ophthalmology 04/10/20 Carlos Antony MD [address] [place], [place] [phone] Dermatology 01/12/21 documented as of this encounter
--- OUTSIDE RECORDS SUMMARY | 2024-04-15 23:02 | XMS_ITS | Encounter Summary ---
Author Organization [facility] Address [address] [facility] [address] [place] [address] Care Team Providers Care Cooky Packer Name Role Phone Anne Villatoro MD Primary Care Provider + [phone] James Peraza MD Unavailable + [phone] Reason for Visit * Reason Comments Medicare Annual Wellness Visit Subsequen t Encounter Details Date Type Department Care Team (Late st Contact Info) Description 11/09/2018 8:45 AM CDT Office [address] [facility] Internal Medicine [address] 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 Gender Identity Not on file Sexual Orientation Not on file documented as of this encounter Last Filed Vital Signs Vital Sign Reading Time Taken Comments Blood Pressure 118/72 11/09/2018 8:57 AM CDT Pulse 72 11/09/2018 8:57 AM CDT Temperature 36.9 ??C (98.4 ??F) 11/09/2018 8:57 AM CD T Respiratory Rate - - Oxygen Saturation 92% 11/09/2018 8:57 AM CDT Inhaled Oxygen Concentration - - Weight 55.2 kg (121 lb 9.6 oz) 11/09/2018 8:57 A M CDT Height 154.9 cm (5' 1 ) 11/09/2018 8:57 AM CDT Body Mass Index 22.98 11/09/2018 8:57 AM CDT documented in this encounter Patient Instructions * Patient Instructions* Anne Villatoro MD - 11/09/2018 8:45 AM CDT Medicare annual wellness visit, subsequent Wear sunscreen while outdoors. Wear seatbelts while [...] the office. Dexa hip and spine due Chronic insomnia Good sleep hygiene. Continue trazodone and melatonin. documented in this encounter Ordered Prescriptions Prescription Sig Dispense Quantity Refills Last Filled Start Date End Date traZODone (DESYREL) 50 mg tablet Take 1 tablet (50 mg total) by mouth nightly 45 tablet 3 11/09/2018 1 documented in this encounter Progress Notes * Anne Villatoro MD - 11/09/2018 8:45 AM CDT Images from the original note were not included. MEDICARE SUBSEQUENT ANNUAL WELLNESS VISIT Patient ID: Lucy Mcallister is a 68 y.o. female. Visit date: 11/09/2018 Medicare Health Risk Assessment Basic Information In general, would you say your health is: Excellent Do you have an Advanced Directive (Living Will) and/or Durable Power of Housekeeping Department Worker?: Yes - Please bring a copy to your next appointment Do you have trouble hearing the television [...] Down, Depressed, or Hopeless: Not at all Audio/Visual screen: Normal Is the patient having any problems with hearing and/or vision? No STEADI Fall Risk Screening: In the past year, patient experienced: One or more falls in the last year: No Up and Go Test: Patient was unsteady [...] THIS VISIT: Lucy reports feeling well overall Sleep is overall ok, not needing the trazodone nightly. Melatonin is taken some nights. Exercising walks daily and does weights 2-3 d a week Problem List, Past Medical and Surgical History: Patient Active Problem List Diagnosis ??? Chronic insomnia ??? Medicare annual wellness visit, subsequent ??? Risk for falls Past Medical History: Diagnosis Date ??? Persistent insomnia Past Surgical History: Procedure Laterality Date ??? TUBAL LIGATION Family History: Family History Problem Relation Age of Onset ??? Colon cancer Mother ??? Alcohol abuse Father Social History: Social History Socioeconomic History ??? Marital status: Spouse name: Not on file ??? Number of children: Not on file ??? Years of education: Not on file ??? Highest education level: Not on file Occupational History ??? Not on file Social Needs ??? Financial resource strain: Not on file ??? Food insecurity: Worry: Not on file Inability: Not on file ??? Transportation needs: Medical: Not on file Non-medical: Not on file Tobacco Use ??? Smoking status: Never Smoker ??? Smokeless tobacco: Never Used Substance and Sexual Activity ??? Alcohol use: Yes Frequency: Monthly or less ??? Drug use: Never ??? Sexual activity: Defer Lifestyle ??? Physical activity: Days per week: Not on file Minutes per session: Not on file ??? Stress: Not on file Relationships ??? Social connections: Talks on phone: Not on file Gets together: Not on file Attends jehovah's witness service: Not on file Active member of club or organization: Not on file Attends meetings of clubs or organizations: Not on file Relationship status: Not on file ??? Intimate partner violence: Fear of current or ex partner: Not [...] 3 mg daily, Disp: , Rfl: ??? traZODone (DESYREL) 50 mg tablet, Take 1 tablet (50 mg total) by mouth nightly, Disp: 45 tablet, Rfl: 3 Review of Systems: Review of Systems Constitutional: [...] the past 1008 hour(s)). Vitals: Vitals BP 118/72 (BP Location: Left arm, Patient Position: Sitting) Pulse 72 Temp 36.9 ??C (98.4 ??F) (Oral) Ht 154.9 cm (5' 1 ) Wt 55.2 kg (121 lb 9.6 oz) SpO2 92% BMI 22.98 kg/m?? Body mass index is 22.98 kg/m??. Exam: Physical Exam Constitutional: She is oriented to person, place, and time. She appears well- developed and well-nourished. No distress. HENT: Head: Normocephalic and atraumatic. Nose: Nose normal. Mouth/Throat: Oropharynx is clear and moist. Eyes: Pupils are equal, round, and reactive to light. Conjunctivae and EOM are normal. Neck: Normal range of motion. Neck supple. No thyromegaly present. Cardiovascular: Normal rate, regular rhythm, normal heart sounds and intact distal pulses. Exam reveals no gallop and no friction rub. No murmur heard. Pulmonary/Chest: Effort normal and breath sounds normal. Abdominal: Soft. Bowel sounds are normal. There is no tenderness. Musculoskeletal: Normal range of motion. She exhibits no deformity. Lymphadenopathy: She has no cervical adenopathy. Neurological: She is alert and oriented to person, place, and time. She displays normal reflexes. No cranial nerve deficit. Coordination normal. Skin: Skin is warm and dry. Psychiatric: She has a normal mood and affect. Her behavior is normal. Judgment normal. Nursing note and vitals reviewed. Care Team Providers: Patient Care Team: Anne Villatoro MD as PCP - General (Internal Medicine) James Peraza MD as Referring Physician (Obstetrics and Gynecology) Primary Pharmacy/DME suppliers: [id number] - [place], [place] - [address] [facility] [address] [place] [address] Detection of Cognitive Impairment: The patient does not have cognitive impairment based on direct observation, discussion with patientor family, or review of medical records. Health Maintenance: Health Maintenance Topics with due status: Overdue Topic Date Due Regular Well Visit/Exam 1950 Hepatitis C Screening 1950 Pneumococcal (PCV13 & PPSV23) 65+ yrs 2017 Health Maintenance Topics with due status: Not Due Topic Last Completion Date Osteoporosis Screening-Bone Density Scan 02/03/2016 Colon Cancer Screening-Colonoscopy 09/30/2016 DTaP/Tdap/Td Vaccine 10/07/2016 Breast Cancer Screening-Mammogram 08/26/2018 Fall Risk Assessment 11/09/2018 Depression Screening-PHQ 11/09/2018 Influenza Vaccine Not Due Health Maintenance Topics with due status: Completed Topic Last Completion Date Zoster Vaccines 09/23/2018 Counseling and Referral of Preventative Services: Lifestyle Recommendations Increase Physical Activity and Improve Diet Advanced Directive Durable Power of AttorneyYes Living Will Yes Assessment and Plan: Diagnoses and all orders for this visit: Medicare annual wellness visit, subsequent (Primary) Assessment & Plan: Wear sunscreen while outdoors. Wear seatbelts while [...] the office. Dexa hip and spine due Chronic insomnia Assessment & Plan: Good sleep hygiene. Continue trazodone and melatonin. Risk for falls Assessment & Plan: Patient at risk for falls due to age and co morbidities. Fall prevention discussed c patient in detail. Exercises for balance and coordination, keep LE muslces toned and strong. Other orders - Pneumococcal conjugate vaccine 13-valent IM (Prevnar-13) - traZODone (DESYREL) 50 mg tablet; Take 1 tablet (50 mg total) by mouth nightly Patient here for annual Medicare wellness visit and for review of complete medical problem list. All the elements of the plan were completed as outlined by [facility]. A copy of the prevention plan was [...] Plan Note - Anne Villatoro MD - 11/09/2018 6:17 PM CDT Associated Problem(s): Risk for falls Patient at risk for falls due to age and co morbidities. Fall prevention discussed c patient in detail. Exercises for balance and coordination, keep LE muslces toned and strong. * Assessment & Plan Note - Anne Villatoro MD - 11/09/2018 9:18 AM CDT Associated Problem(s): Chronic insomnia Good sleep hygiene. Continue trazodone and melatonin. * Assessment & Plan Note - Anne Villatoro MD - 11/09/2018 9:18 AM CDT Associated Problem(s): Medicare annual wellness visit, subsequent Wear sunscreen while outdoors. Wear seatbelts while [...] the office. Dexa hip and spine due documented in this encounter Plan of Treatment Not on file documented as of this encounter Procedures Procedure Name Priority Date/Time Associated Diagnosis Comments MAMMOGRAPHY Routine 08/26/2018 DEXA SCAN Routine 02/03/2016 documented in this encounter Results * MAMMOGRAPHY (08/26/2018) Mammogram Normal Historical Provider HEALTH MAINTENANCE Final Result * DEXA SCAN (02/03/2016) DEXA Scan Unknown Historical Provider HEALTH MAINTENANCE Final Result documented in this encounter Visit Diagnoses Diagnosis Medicare annual wellness visit, subsequent- Primary Chronic insomnia Insomnia, unspecified Risk for falls documented in this encounter Discontinued Medications Medication Sig Discontinue Reason Start Date End Da te aspirin (ASPIR-81) 81 mg enteric coated tablet 81 mg daily Therapy completed 11/09/2018 traZODone (DESYREL) 50 mg tablet Reorder 08/03/2018 11/09/2018 documented as of this encounter Orders Immunization/Injection Count Last Ordered Date First Ordered Date PNEUMOCOCCAL CONJUGATE VACCI NE 13VALENT IM 1 11/09/2018 documented in this encounter Care Teams Cooky Packer Relationship Specialty Start Date End Date Anne Villatoro MD [address] [place] [address] PCP - General Internal Medicine 11/09/18 James Peraza MD [address] [address] [place] [address] Referring Physician Obstetrics and Gynecology 11/09/18 08/04/22 documented as of this encounter
--- OUTSIDE RECORDS SUMMARY | 2024-04-15 23:02 | XMS_ITS | Encounter Summary ---
Author Organization [facility] Address [address] [facility] [address] [place] [address] Care Team Providers Care Doper Operator Name Role Phone Anne Villatoro MD Primary Care Provider + [phone] James Peraza MD Unavailable + [phone] Encounter Details Date Type Department Care Team (Late st Contact Info) Description 11/09/2018 Orders Only [facility] Internal Medicine [address] [facility] [address] [place] [address] Anne Villatoro MD [facility] [address] Post-menopausal (Primary Dx) Social History Tobacco Use Types [...] on file 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 Gender Identity Not on file Sexual Orientation Not on file documented as of this encounter Plan of Treatment Not on file documented as of this encounter Visit Diagnoses Diagnosis Post-menopausal- Primary Asymptomatic postmenopausal status (age-related) (natural) documented in this encounter Care Teams Doper Operator Relationship Specialty Start Date End Date Anne Villatoro MD [address] [place] [address] [place] [phone] PCP - General Internal Medicine 11/09/18 James Peraza MD [address] [address] [place], [place] [phone] Referring Physician Obstetrics and Gynecology 11/09/18 08/04/22 documented as of this encounter
--- OUTSIDE RECORDS SUMMARY | 2024-04-15 23:02 | XMS_ITS | Encounter Summary ---
Author Organization [facility] Address [address] [address] Care Team Providers Care Furniture Decals Inspector Name Role Phone Anne Villatoro MD Primary Care Provider + [phone] James Peraza MD Unavailable + [phone] Reason for Referral * Diagnostic Imaging (Routine) - Closed Specialty Diagnoses / Procedures Referred By Brandie dunn Referred To Contact Procedures Screening Mammogram 2D Bilateral [facility] [address] [place] [phone] Phone: tel: fax: Referral ID Status Reason Start Date Expiration Date Visits Re quested Visits Authorized [id number] Closed 02/21/2020 03/22/2021 1 1 TRIMMER Encounter Details Date Type Department Care Team ([facility] st Contact Info) Description 02/21/2020 Telephone [facility] [address] [place] [address] Anne Villatoro MD [address] [place] [address] Social History Tobacco Use Types Packs/Day [...] file 07/2019 PHQ-2 Answer Date Recorded PHQ-2 Score 0 12/05/2018 Comments Unknown Sex and Gender Information Value Date Recorded Sex Assigned at Not on file 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 Gender Identity Not on file Sexual Orientation Not on file documented as of this encounter Miscellaneous Notes * Telephone Encounter - Kathraina Kowalski MA - 02/21/2020 3:41 PM TOE TRIMMER MAMMOGRAM RESULTS ADDED TO HIM TRIMMER documented in this encounter Plan of Treatment Not on file documented as of this encounter Procedures Procedure Name Priority Date/Time Associated Diagnosis Comments SCREENING MAMMOGRAM 2D BILATERAL Schedule Routine, Read Routine (OP Routine) 02/18/2020 documented in this encounter Results * (ABNORMAL) Screening Mammogram 2D Bilateral (02/18/2020) Anatomical Region Laterality Modality Breast Bilateral Mammography Historical Provider MD GARNICA MAMMO PROCEDURES Emperatriz l Result documented in this encounter Visit Diagnoses Not on filedocumented in this encounter Care Teams Furniture Decals Inspector Relationship Specialty Start Date End Date Anne Villatoro MD [address] [facility] [address] [place] [address] PCP - General Internal Medicine 11/09/18 James Peraza MD [address] [facility] [address] [place], [place] [phone] Referring Physician Obstetrics and Gynecology 11/09/18 08/04/22 documented as of this encounter
--- OUTSIDE RECORDS SUMMARY | 2024-04-15 23:02 | XMS_ITS | Encounter Summary ---
Author Organization [facility] Address [address] [address] Care Team Providers Care Contract Specialist Name Role Phone Anne Villatoro MD Primary Care Provider + [phone] James Peraza MD Unavailable + [phone] González Moser OD Unavailable [phone] Carlos Antony MD Unavailable [phone] Reason for Visit * Reason Onset Date Comments Hypertension 04/24/2022 Encounter Details Date Type Department Care Team (Late st Contact Info) Description 04/24/2022 Nurse Triage [facility] Primary Care [address] [address] Anne Villatoro MD [facility] [address] Social History Tobacco Use Types [...] on file 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 Gender Identity Not on file Sexual Orientation Not on file documented as of this encounter Ordered Prescriptions Prescription Sig Dispense Quantity Refills Last Filled Start Date End Date amLODIPine (NORVASC) 5 mg tablet Take 1 tablet (5 mg total) by mouth daily 30 tablet 1 04/25/2022 06/17/2022 documented in this encounter Miscellaneous Notes * Addendum Note - Lupe Neil MA - 04/25/2022 1:58 PM CSTAddended by: LUPE NEIL on: 04/25/2022 01:58 PM Modules accepted: Orders NOLOGY TEACHER * Telephone Encounter - Lupe Neil MA - 04/25/2022 1:58 PM OCEANOLOGY TEACHER Medication sent and Patient informed NOLOGY TEACHER * Telephone Encounter - Lupe Neil MA - 04/25/2022 10:21 AM OCEANOLOGY TEACHER Please advise NOLOGY TEACHER * Telephone Encounter - Leyda Amato RN - 04/24/2022 12:15 PM CST Lucy Leahynomijasmin is calling to report elevated blood pressure, headaches 192/102 since today. 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 Patient has not taken any medication other than vitamins. Patient took one advil at 10:00 today and headache improving. Pharmacist checked bp manually @12:30pm, patient seems stressed on phone, 196/88. ARDEN 07/30 122/70 NOV 08/05 Routing to office: patient is wanting to know if sooner appt is available. She would like to know if she needs to start on bp medication now. No appt available today or tomorrow Suggested buying at home bp cuff to keep track of bp readings. Denies chest pain, difficulty breathing, mobility changes, new changes in visions. Encouraged to call back if there are further questions or concerns. Encouraged to call back if symptoms persist or worsen. Reason for Disposition Patient wants to be seen Protocols used: Blood Pressure - [id number] NOLOGY TEACHER * Telephone Encounter - Leyda Amato RN - 04/24/2022 12:14 PM CST Regarding: Elevated blood pressure, headaches ----- Message from Jeanette Rosenberg sent at 04/24/2022 12:06 PM OCEANOLOGY TEACHER ----- Symptom Based Call Chief Complaint: Elevated blood pressure, headaches 192/102 Did you review 911/Red Flag List?Yes Duration: 1 day Why was appointment not scheduled? 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 Patient has not taken any medication other than vitamins. Vit D, Mt C, multi and magnesium, melatonin Patient took one advil at 10:00 today and headache improving. Patient is on no extermination inspector medication Does message need to be routed? Yes-Action Needed NOLOGY TEACHER documented in this encounter Plan of Treatment Not on file documented as of this encounter Visit Diagnoses Not on filedocumented in this encounter Care Teams Contract Specialist Relationship Specialty Start Date End Date Anne Villatoro MD [address] [facility] [address] [place] [address] PCP - General Internal Medicine 11/09/18 James Peraza MD [address] [address] Referring Physician Obstetrics and Gynecology 11/09/18 08/04/22 González Moser, ABILIO [address] [place] [address] Ophthalmology 04/10/20 Carlos Antony MD [address] [place] [address] Dermatology 01/12/21 documented as of this encounter
--- OUTSIDE RECORDS SUMMARY | 2024-04-15 23:02 | XMS_ITS | Encounter Summary ---
Author Organization [facility] Address [address] [address] Care Team Providers Care Seed Corn Manager Production Name Role Phone Anne Villatoro MD Primary Care Provider [phone] González Moser OD Unavailable [phone] Carlos Antony MD Unavailable [phone] Esha Madrid MD Unavailable + [phone] Margarito Torre MD Unavailable [phone] Encounter Details Date Type Department Care Team (Late st Contact Info) Description 12/18/2022 Orders Only [facility] Primary Care [address] [phone] Anne Villatoro MD [facility] [address] Risk for falls (Primary Dx); Hypertension, essential Social History Tobacco Use Types Packs/Day Years [...] on file 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 Gender Identity Not on file Sexual Orientation Not on file documented as of this encounter Plan of Treatment Not on file documented as of this encounter Visit Diagnoses Diagnosis Risk for falls- Primary Hypertension, essential Unspecified essential hypertension documented in this encounter Care Teams Seed Corn Manager Production Relationship Specialty Start Date End Date Anne Villatoro MD [address] [address] PCP - General Internal Medicine 11/09/18 González Moser, ABILIO [address] [place] [address] Ophthalmology 04/10/20 Carlos Antony MD [address] [place] [address] Dermatology 01/12/21 Esha Madrid MD [address] [facility] [address] [place] [address] Consulting Physician Interventional Cardiology 08/05/22 Margarito Torre MD [address] [facility] [address] [address] Referring Physician Dermatology 08/05/22 documented as of this encounter
--- OUTSIDE RECORDS SUMMARY | 2024-04-15 23:02 | XMS_ITS | Encounter Summary ---
Author Organization [facility] Care Team Providers Care Envelope Machine Operator Name Role Phone Anne Villatoro MD Primary Care Provider + [phone] James Peraza MD Unavailable + [phone] González Moser OD Unavailable [phone] Carlos Antony MD Unavailable [phone] Esha Madrid MD Unavailable + [phone] Margarito Torre MD Unavailable [phone] Encounter Details Date Type Department Care Team (Latest Contact Info) Description 09/30/2016 Orders Only [facility] ProviderAmber MD [address] [place] [address] Social History Tobacco Use Types Packs/Day Years Used Date Smoking Tobacco: Never Assessed Comments Unknown Sex and Gender Information Value Date Recorded Sex Assigned at Not on file 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 Historical Provider Final Res ult documented in this encounter Visit Diagnoses Not on filedocumented in this encounter Care Teams Envelope Machine Operator Relationship Specialty Start Date End Date Anne Villatoro MD [address] [facility] [address] [place], [place] [address] PCP - General Internal Medicine 11/09/18 James Peraza MD [address] [facility] [address] [place] [address] Referring Physician Obstetrics and Gynecology 11/09/18 08/04/22 González Moser, OD [address] [place] [address] Ophthalmology 04/10/20 Carlos Antony MD [address] [place] [address] Dermatology 01/12/21 Esha Madrid MD [address] [facility] [address], [place] [address] Consulting Physician Interventional Cardiology 08/05/22 Margarito Torre MD [address] [facility] [place] [address] Referring Physician Dermatology 08/05/22 documented as of this encounter
--- OUTSIDE RECORDS SUMMARY | 2024-04-15 23:02 | XMS_ITS | Encounter Summary ---
Author Organization [facility] Address [address] [address] Care Team Providers Care Crime Analyst Name Role Phone Anne Villatoro MD Primary Care Provider + [phone] James Peraza MD Unavailable + [phone] González Moser OD Unavailable [phone] Carlos Antony MD Unavailable [phone] Reason for Referral * Consultation (Routine) - Closed Specialty Diagnoses / Procedures Referred By Contac t Referred To Contact Cardiology Diagnoses Hypertension, essential Atypical chest pain Anne Villatoro MD [address] [address] Phone: tel: fax: Michelle Madrid MD [facility] [address] Phone: tel: fax: Referral ID Status Reason Start Date Expiration Date V isits Requested Visits Authorized [id number] Closed Specialty Services Required 05/01/2022 05/31/2023 1 1 Question Answer Please select the performing region: External Order [171] To provider: MICHELLE MADRID [[id number]] # of visits: 1 ER Reason for Visit * Reason Comments Hypertension New onset, with Head aches Chest Pain 1 episode Encounter Details Date Type Department Care Team (Late st Contact Info) Description 05/01/2022 11:30 AM T[address]ER Office Visit 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 Gender Identity Not on file Sexual Orientation Not on file documented as of this encounter Last Filed Vital Signs Vital Sign Reading Time Taken Comments Blood Pressure 120/78 05/01/2022 11:53 AM TOSSER Pulse 77 05/01/2022 11:53 AM TOSSER Temperature 36.1 ??C (96.9 ??F) 05/01/2022 11:[address] Respiratory Rate - - Oxygen Saturation 93% 05/01/2022 11:53 AM TOSSER Inhaled Oxygen Concentration - - Weight 60.1 kg (132 lb 6.4 oz) 05/01/2022 11:53 AM TOSSER Height 154.9 cm (5' 0.98 ) 05/01/2022 11:[address] Body Mass Index 25.03 05/01/2022 11:53 AM TOSSER documented in this encounter Patient Instructions * Attachments The following attachments cannot be sent through Care Everywhere. * DASH Eating Plan (Cloth Pattern Maker) ([place]) documented in this encounter Progress Notes * Anne Villatoro MD - 05/01/2022 11:30 AM CST Images from the original note were not included. Patient ID: Lucy Mcallister is a 71 y.o. female. Chief Complaint. Chief Complaint Patient presents with Hypertension New onset, with Headaches HPI. Patient is a 71 y.o. female Hypertension This is a new problem. The current episode started in the past 7 days. The problem has been gradually improving since onset. The problem is controlled. Associated symptoms include chest pain (lasted 10 mins) and headaches. Pertinent negatives include no anxiety, blurred vision, orthopnea, palpitations, peripheral edema, PND, shortness of breath or sweats. There are no associated agents to hypertension. Risk factors for coronary artery disease include family history and post-menopausal state. New onset BP BP shot up high and readings were 202[facility] a dull WHITEHEAD Pharmacist took it and was 198/100 Famhx of cad and stroke Admits to having 1 episode where she woke up with chest pressure lasted 10 mins or so, did not haveN, diaphoresis or sob No leg edema She called and we started amlodipine and now bp is better Current Medications: Outpatient Encounter Medications as of 05/01/2022 Medication Sig Dispense Refill amLODIPine (NORVASC) 5 mg tablet Take 1 tablet (5 mg total) by mouth daily 30 tablet 1 ASCORBIC ACID-ASCORBATE CALC ORAL 500 mg daily calcium carbonate/vitamin D3 (CALCIUM 500 + D ORAL) 600 mg daily cholecalciferol, vitamin D3, (CHOLECALCIFEROL, VIT D3,,BULK, MISC) 1,000 Units daily cyanocobalamin (Vitamin B-12) 1,000 mcg tablet daily melatonin tablet 3 mg daily multivitamin capsule Take 1 capsule by mouth daily traZODone (DESYREL) 50 mg tablet Take 1 tablet (50 mg total) by mouth nightly (Patient taking differently: Take 50 mg by mouth as needed) 45 tablet 1 vit C,X-Xi-lluno-lutein-zeaxan [phone] xw-sslx-ww-mg capsule Take 1 tablet by mouth daily magnesium gluconate 200 mg tablet 200 mg No facility-administered encounter medications on file as of 05/01/2022. Review of Systems: Review of Systems Eyes: Negative for blurred vision and visual disturbance. Respiratory: Negative for shortness of breath. Cardiovascular: Positive for chest pain (lasted 10 mins). Negative for palpitations, orthopnea and PND. Neurological: Positive for headaches. Negative for weakness. BP 120/78 (BP Location: Left arm, Patient Position: Sitting) Pulse 77 Temp 36.1 ??C (96.9 ??F) (Temporal) Ht 154.9 cm (5' 0.98 ) Wt 60.1 kg (132 lb 6.4 oz) SpO2 93% BMI 25.03 kg/m?? Physical Exam: Physical Exam Vitals and nursing note reviewed. Constitutional: Appearance: Normal appearance. HENT: Head: Normocephalic and atraumatic. Cardiovascular: Rate and Rhythm: Normal rate and regular rhythm. Heart sounds: Normal heart sounds. No murmur heard. Pulmonary: Effort: Pulmonary effort is normal. Breath sounds: Normal breath sounds. Neurological: Mental Status: She is alert. EKG: No prior ECG for comparison NSR, normal axis PRWP, likely lead placement No Q waves No ST T wave changes No LVH In setting of new onset HTN and atyp CP, ecg shows no signs of prior [place], LVH or ischemia Assessment & Plan: Diagnoses and all orders for this visit: Hypertension, essential (Primary) Assessment & Plan: New onset With WHITEHEAD Responded to amlodipine Cont BP med Ff low sodium diet Exercise ekg today Refer to cardio for stress testing famhx of CAD At risk for stroke or [place] Cont to monitor BP and record Orders: - ECG 12 lead - Ambulatory referral to Cardiology; Future Atypical chest pain Assessment & Plan: Chest pressure woke her up lasted 10 mins No assoc sx Patient later had elev BP new very high with WHITEHEAD Rule out cad ekg today Refer to cardio recommend stress testing Orders: - Ambulatory referral to Cardiology; Future Screening mammogram for breast cancer - Screening Mammogram Bilateral W Bob; Future Anne Villatoro MD Ff up as prev ordered This note is dictated and transcribed by [email or web address]. Senior Network Architect variances may occur. Despite proofreading, typographical errors may occur. ER documented in this encounter Procedure Notes * Anne Villatoro MD - 05/01/2022 11:30 AM CSTAssociated Order(s): ECG 12 lead Pre-Procedure Diagnose(s): Hypertension, essential Post-Procedure Diagnose(s): Hypertension, essential ECG 12 lead Date/Time: 05/01/2022 12:33 PM Performed by: Anne Villatoro MD Authorized by: Anne Villatoro MD Interpreted by ED physician: by myself. Comparison: not compared with previous ECG Rhythm: sinus rhythm Rate: normal QRS axis: normal ST Segments: ST segments normal Other findings: PRWP Clinical impression: normal ECG Comments: New onset HTN, episode of chest pressure, PRWP could be lead placement. Famhx of CAD and stroke. Refer to cardio for stress testing. Continue new BP med amlodipine. Bp controlled today, no longer 200/100 ER documented in this encounter Miscellaneous Notes * Result Encounter Note - Anne Villatoro MD - 05/02/2022 11:42 PM TOSSER Discussed ECG result with patient at OV: No prior ECG for comparison NSR, normal axis PRWP, likely lead placement No Q waves No ST T wave changes No LVH In setting of new onset HTN and atyp CP, ecg shows no signs of prior [place], LVH or ischemia ER * Assessment & Plan Note - Anne Villatoro MD - 05/01/2022 12:28 PM TOSSER Associated Problem(s): Atypical chest pain (Resolved 08/05/2022) Chest pressure woke her up lasted 10 mins No assoc sx Patient later had elev BP new very high with WHITEHEAD Rule out cad ekg today Refer to cardio recommend stress testing ER * Assessment & Plan Note - Anne Villatoro MD - 05/01/2022 12:23 PM TOSSER Associated Problem(s): Hypertension, essential New onset With WHITEHEAD Responded to amlodipine Cont BP med Ff low sodium diet Exercise ekg today Refer to cardio for stress testing famhx of CAD At risk for stroke or [place] Cont to monitor BP and record ER ER documented in this encounter Plan of Treatment Scheduled Referrals Name Type Priority Associated Diagnoses Order Schedule Ambulatory referral to Cardiology Outpatient Referral Routine Hypertension, essential Atypical chest pain Expected: 05/15/2022 (Approximate), Expires: 05/01/2023 documented as of this encounter Procedures Procedure Name Priority Date/Time Associated Diagnosis Comments ECG 12-LEAD Routine 05/01/2022 12:33 PM TOSSER Hypertension, essential documented in this encounter Results * ECG 12-LEAD (05/01/2022 12:33 PM TOSSER) Narrative Anne Villatoro MD - 05/01/2022 12:33 PM TOSSER Anne Villatoro MD ? 05/02/2022 11:45 PM ECG 12 lead Date/Time: 05/01/2022 12:33 PM Performed by: Anne Villatoro MD Authorized by: Anne Villatoro MD Interpreted by ED physician: by myself. Comparison: not compared with previous ECG Rhythm: sinus rhythm Rate: normal QRS axis: normal ST Segments: ST segments normal Other findings: PRWP Clinical impression: normal ECG Comments: New onset HTN, episode of chest pressure, PRWP could be lead placement. Famhx of CAD and stroke. Refer to cardio for stress testing. Continue new BP med amlodipine. Bp controlled today, no longer 200/100 us Anne Villatoro MD ECG ORDERABLES Edited Resul t - Final documented in this encounter Visit Diagnoses Diagnosis Hypertension, essential- Primary Unspecified essential hypertension Atypical chest pain Other chest pain Screening mammogram for breast cancer documented in this encounter Historical Medications * This list may reflect changes made after this encounter. magnesium gluconate 200 mg tabletIndications :hypomagnesemia 1 tablet (200 mg total) added in this encounter Care Teams Crime Analyst Relationship Specialty Start Date End Date Anne Villatoro MD [address] [facility] [address] [place] [address] PCP - General Internal Medicine 11/09/18 James Peraza MD [address] [facility] [address] [place] [address] Referring Physician Obstetrics and Gynecology 11/09/18 08/04/22 González Moser, [address] [place] [address] Ophthalmology 04/10/20 Carlos Antony MD [address] [place], [place] [address] Dermatology 01/12/21 documented as of this encounter
--- OUTSIDE RECORDS SUMMARY | 2024-04-15 23:02 | XMS_ITS | Encounter Summary ---
Author Organization [facility] Address [address] [address] Care Team Providers Care Global Compensation Manager Name Role Phone Anne Villatoro MD Primary Care Provider + [phone] James Peraza MD Unavailable + [phone] González Moser OD Unavailable [phone] Carlos Antony MD Unavailable [phone] Encounter Details Date Type Department Care Team (Late st Contact Info) Description 07/30/2021 Orders Only [facility] Primary Care [address] [phone] Anne Villatoro MD [facility] [address] Medicare annual wellness visit, subsequent (Primary Dx); Vitamin D deficiency Social History Tobacco Use [...] on file 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 Gender Identity Not on file Sexual Orientation Not on file documented as of this encounter Plan of Treatment Not on file documented as of this encounter Procedures Procedure Name Priority Date/Time Associated Diagnosis Comments REFLEXIVE URINE CULTURE Routine 10/17/2021 11:43 AM CDT URINALYSIS AND REFLEX TO MICROSCOPIC AND CULTURE Routine 10/17/2021 11:43 AM CDT Medicare annual wellness visit, subsequent VITAMIN D 25 HYDROXY Routine 10/17/2021 11:43 AM CDT Vitamin D deficiency CBC WITHOUT DIFFERENTIAL Routine 10/17/2021 11:43 AM CDT Medicare annual wellness visit, subsequent TSH Routine 10/17/2021 11:43 AM CDT LIPID PANEL Routine 10/17/2021 11:43 AM CDT Medicare annual wellness visit, subsequent COMPREHENSIVE METABOLIC PANEL Routine 10/17/2021 11:43 AM CDT Medicare annual wellness visit, subsequent documented in this encounter Results * TSH (10/17/2021 11:43 AM CDT) TSH 3.20 0.40 - 4.50 mIU/L [facility] 10/17/2021 11:4 3 AM CDT 10/17/2021 11:44 AM CDT Narrative [facility] - 10/18/2021 6:17 AM CDT FASTING:YES FASTING: YES us Anne Villatoro MD LAB BLOOD ORDERABLES Final R esult [facility] [address] [address] [facility] [place] [address] * REFLEXIVE URINE CULTURE (10/17/2021 11:43 AM CDT) Urine culture [facility] Comment:NO CULTURE INDICATED 10/17/2021 11:4 3 AM CDT 10/17/2021 11:44 AM CDT Narrative [facility] - 10/18/2021 6:17 AM CDT FASTING:YES FASTING: YES Anne Villatoro MD LAB MICROBIOLOGY - GENERAL O RDERABLES Final Result Performing Organization Address [facility] Co de Phone Number [facility] [address] [place] [address] * Vitamin D 25 hydroxy (10/17/2021 11:43 AM CDT) Pathologist [facility] Vitamin D 25-OH 46 30 - 100 ng/mL [facility] Comment: Vitamin D Status ? 25-OH Vitamin D: Deficiency: ?<20 ng/mL Insufficiency: ? 20 - 29 ng/mL Optimal: ? > or = 30 ng/mL For 25-OH Vitamin D testing on patients on D2-supplementation and patients for whom quantitation of D2 and D3 fractions is required, the QuestAssureD(TM) 25-OH VIT D, (D2,D3), LC/MS/MS is recommended: order code 42068 (patients >2yrs). See Note 1 Note 1 For additional information, please refer to http://education.[employer].TE2/faq/QDC235 (This link is being provided for informational/ educational purposes only.) Blood specimen (specimen) 10/17/2021 11:43 AM CDT 10/17/2021 11:44 AM CDT Narrative [facility] - 10/18/2021 6:17 AM CDT FASTING:YES FASTING: YES us Anne Villatoro MD LAB BLOOD ORDERABLES Final R esult Performing Organization Address City/[facility]/ZIP Co de Phone Number [facility] [address] [place] [address] * (ABNORMAL) Urinalysis reflex to microscopic and culture Urine, clean voided (10/17/2021 11:43 AM CDT) Color, ur YELLOW YELLOW [facility] Appearance, ur CLEAR CLEAR [facility] Specific gravity 1.025 1.001 - 1.035 [facility] pH, ur < OR = 5.0 5.0 - 8.0 [facility] Glucose, ur NEGATIVE NEGATIVE [facility] Bilirubin, ur NEGATIVE NEGATIVE [facility] Ketones, ur TRACE(A) NEGATIVE [facility] Blood, ur NEGATIVE NEGATIVE [facility] Protein, ur, quant NEGATIVE NEGATIVE [facility] Nitrites, ur NEGATIVE NEGATIVE [facility] Leukocyte esterase, ur NEGATIVE NEGATIVE [facility] WBC, ur NONE SEEN < OR = 5 /HPF [facility] RBC, ur NONE SEEN < OR = 2 /HPF [facility] Epithelial cells, squamous, ur 6-10(A) < OR = 5 /HPF [facility] Bacteria, ur, quant NONE SEEN NONE SEEN /HPF [facility] Hyaline cast 0-5(A) NONE SEEN /LPF [facility] Urine, clean voided 10/17/2021 11:43 AM CDT 10/17/2021 11:44 AM CDT Narrative [facility] - 10/18/2021 6:17 AM CDT FASTING:YES FASTING: YES us Anne Villatoro MD LAB MICROBIOLOGY - GENERAL O RDERABLES Final Result [facility] [address] [place] [address] * (ABNORMAL) Lipid panel (10/17/2021 11:43 AM CDT) Cholesterol 232(H) <200 mg/dL [facility] HDL 73 > OR = 50 mg/dL [facility] Triglycerides 97 <150 mg/dL [facility] LDL 139(H) mg/dL (calc) [facility] Comment: Reference range: <100 Desirable range <100 mg/dL for primary prevention; ?? <70 mg/dL for patients with CHD or diabetic patients with > or = 2 CHD risk factors. LDL-C is now calculated using the Aylin calculation, which is a validated novel method providing better accuracy than the Friedewald equation in the estimation of LDL-C. Javier BOYER et al. DEMIAN. 2013;310(47): 7559-6219 (http://education.[employer]/faq/BER737) Chol/HDL ratio 3.2 <5.0 (calc) [facility] Non-HDL, (LDL+VLDL) 159(H) <130 mg/dL (calc) [facility] Comment: For patients with diabetes plus 1 major ASCVD risk factor, treating to a non-HDL-C goal of <100 mg/dL (LDL-C of <70 mg/dL) is considered a therapeutic option. Blood specimen (specimen) 10/17/2021 11:43 AM CDT 10/17/2021 11:44 AM CDT Narrative [facility] - 10/18/2021 6:17 AM CDT FASTING:YES FASTING: YES us Anne Villatoro MD LAB BLOOD ORDERABLES Final R esult [facility] [address] [place] [address] * Comprehensive metabolic panel (10/17/2021 11:43 AM CDT) [facility] Glucose 87 65 - 99 mg/dL [facility] Comment: ? Fasting reference interval BUN 23 7 - 25 mg/dL [facility] Creatinine 0.90 0.50 - 0.99 mg/dL [facility] Comment: For patients >49 years of age, the reference limit for Creatinine is approximately 13% higher for people identified as -Ethiopian. eGFR NON-AFR. SALVADOREAN 65 > OR = 60 mL/min/1 .73m2 [facility] EGFR 76 > OR = 60 mL/min/1 .73m2 [facility] BUN/creat ratio NOT APPLICABLE 6 - 22 (calc) [facility] Sodium 138 135 - 146 mmol/L [facility] Potassium, pl 4.6 3.5 - 5.3 mmol/L [facility] Chloride 102 98 - 110 mmol/L [facility] CO2 31 20 - 32 mmol/L [facility] Calcium 9.5 8.6 - 10.4 mg/dL [facility] Protein, sr 6.8 6.1 - 8.1 g/dL [facility] Albumin 4.6 3.6 - 5.1 g/dL [facility] GLOBULIN 2.2 1.9 - 3.7 g/dL (calc) [facility] Alb/glob ratio 2.1 1.0 - 2.5 (calc) [facility] Bilirubin, total 0.5 0.2 - 1.2 mg/dL [facility] Alk phos 45 37 - 153 U/L [facility] AST 20 10 - 35 U/L [facility] ALT (SGPT) 16 6 - 29 U/L [facility] Blood specimen (specimen) 10/17/2021 11:43 AM CDT 10/17/2021 11:44 AM CDT Narrative [facility] - 10/18/2021 6:17 AM CDT FASTING:YES FASTING: YES us Anne Villatoro MD LAB BLOOD ORDERABLES Final R esult [facility] [address] [place] [address] * (ABNORMAL) CBC without differential (10/17/2021 11:43 AM CDT) WBC 4.3 3.8 - 10.8 Thousand/uL [facility] RBC, POC 4.10 3.80 - 5.10 Million/uL [facility] Hgb 14.5 11.7 - 15.5 g/dL [facility] Hct 42.0 35.0 - 45.0 % [facility] MCV 102.4(H) 80.0 - 100.0 fL [facility] MCH 35.4(H) 27.0 - 33.0 pg [facility] MCHC 34.5 32.0 - 36.0 g/dL [facility] Rdw 11.9 11.0 - 15.0 % [facility] Platelets 256 140 - 400 Thousand/uL [facility] MPV 11.1 7.5 - 12.5 fL [facility] Blood specimen (specimen) 10/17/2021 11:43 AM CDT 10/17/2021 11:44 AM CDT Narrative [facility] - 10/18/2021 6:17 AM CDT FASTING:YES FASTING: YES us Anne Villatoro MD LAB BLOOD ORDERABLES Final R esult [facility] [address] [place] [address] documented in this encounter Visit Diagnoses Diagnosis Medicare annual wellness visit, subsequent- Primary Vitamin D deficiency documented in this encounter Care Teams Global Compensation Manager Relationship Specialty Start Date End Date Anne Vlilatoro MD [address] [place] [address] [address] [place], [place] [address] PCP - General Internal Medicine 11/09/18 James Peraza MD [address] [facility] [address] [place] [address] Referring Physician Obstetrics and Gynecology 11/09/18 08/04/22 González Moser OD [address] [place] [address] Ophthalmology 04/10/20 Carlos Antony MD [address] [place] [address] Dermatology 01/12/21 documented as of this encounter
--- OUTSIDE RECORDS SUMMARY | 2024-04-15 23:02 | XMS_ITS | Encounter Summary ---
Author Organization [facility] Address [address] [address] Care Team Providers Care It Recruiter Name Role Phone Anne Villatoro MD Primary Care Provider + [phone] James Peraza MD Unavailable + [phone] González Moser OD Unavailable [phone] Carlos Antony MD Unavailable [phone] Encounter Details Date Type Department Care Team (Late st Contact Info) Description 07/15/2022 Telephone [facility] Primary Care [address] [place] [address] [phone] Anne Villatoro MD [facility] [address] Social History Tobacco Use Types [...] on file 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[employer] Gender Identity Not on file Sexual Orientation Not on file documented as of this encounter Miscellaneous Notes * Telephone Encounter - Fifi Reynolds MA - 07/15/2022 9:07 AM CDT Chart updated HM documented in this encounter Plan of Treatment Not on file documented as of this encounter Procedures Procedure Name Priority Date/Time Associated Diagnosis Comments MAMMOGRAPHY Routine 07/12/2022 documented in this encounter Results * MAMMOGRAPHY (07/12/2022) Mammography Normal us Historical Provider HEALTH MAINTENANCE Final Result documented in this encounter Visit Diagnoses Not on filedocumented in this encounter Care Teams It Recruiter Relationship Specialty Start Date End Date Anne Villatoro MD [address] [place] [address] PCP - General Internal Medicine 11/09/18 James Peraza MD [address] [address] Referring Physician Obstetrics and Gynecology 11/09/18 08/04/22 González Moser OD [address] [place] [address] Ophthalmology 04/10/20 Carlos Antony MD [address] [place] [address] Dermatology 01/12/21 documented as of this encounter
--- OUTSIDE RECORDS SUMMARY | 2024-04-15 23:02 | XMS_ITS | Encounter Summary ---
Author Organization [facility] Medical Group Address [address] [address] Care Team Providers Care Eight Arm Operator Name Role Phone Anne Villatoro MD Primary Care Provider + [phone] James Peraza MD Unavailable + [phone] González Moser OD Unavailable [phone] Carlos Antony MD Unavailable [phone] Reason for Visit * Reason Onset Date Comments Referral Request 07/12/2022 Encounter Details Date Type Department Care Team (Late st Contact Info) Description 07/12/2022 Telephone [facility] Medical [facility] Primary Care [address] [address] Anne Villatoro MD [facility] [address] Referral Request Social History Tobacco Use Types Packs/Day Years [...] on file 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 Gender Identity Not on file Sexual Orientation Not on file documented as of this encounter Miscellaneous Notes * Telephone Encounter - Magali Aguero MA - 07/12/2022 10:17 AM CDT Faxed * Telephone Encounter - Catina Wagner - 07/12/2022 8:38 AM CDT Referral Provider Name (if patient is seeing a nurse practitioner or physician ophthalmic assistant, list the PROFESSOR OF BIBLICAL STUDIES/PA, but also their collaborating doctor): [facility] Special[facility]: Imaging Address: [address] [facility], Zip: [place], [place] Diagnosis Code/Symptom/Reason Patient is being seen: Screening mammogram Date of Appointment: today at 1:15 NPI#: na Tax ID#: na Is insurance in chart up to date? yes Caller???s Callback #: [phone] Additional Comments: Patient has a screening mammogram appointment Today at 1:15 and needs the order dated 05/01/2022 faxed to the facility. Patient stated that she lost her order and this facility requires one. Sending as High priority as her appointment is today. Does message need to be routed?Yes-Action Needed documented in this encounter Plan of Treatment Not on file documented as of this encounter Visit Diagnoses Not on filedocumented in this encounter Care Teams Eight Arm Operator Relationship Specialty Start Date End Date Anne Villatoro MD 1418 [facility] [address] [place], [place] [id number] PCP - General Internal Medicine 11/09/18 James Peraza MD 15[address] [facility] [address] [place], [place] [id number] Referring Physician Obstetrics and Gynecology 11/09/18 08/04/22 González Moser OD [address] [place], [place] [address] Ophthalmology 04/10/20 Carlos Antony MD [address] [place] [address] Dermatology 01/12/21 documented as of this encounter
--- OUTSIDE RECORDS SUMMARY | 2024-04-15 23:03 | XMS_ITS | Encounter Summary ---
Author Organization [facility] Facility Care Team Providers Care Maintenance Mechanic Elevators Name Role Phone Anne Villatoro MD Primary Care Provider + [phone] James Peraza MD Unavailable + [phone] González Moser OD Unavailable [phone] Carlos Antony MD Unavailable [phone] Esha Madrid MD Unavailable + [phone] Margarito Torre MD Unavailable +[phone] Encounter Details Date Type Department Care Team (Latest Contact Info) Description 03/23/2015 Orders Only [facility] CLINCONV ProviderAmber MD [address] [place] [address] Social History Tobacco Use Types Packs/Day Years Used Date Smoking Tobacco: Never Assessed Comments Unknown Sex and Gender Information Value Date Recorded Sex Assigned at Not on file Legal 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 Historical Provider Final Res ult documented in this encounter Visit Diagnoses Not on filedocumented in this encounter Care Teams Maintenance Mechanic Elevators Relationship Specialty Start Date End Date Anne Villatoro MD 1418 [facility] [address] [place], [place] [address] PCP - General Internal Medicine 11/09/18 Jamse Peraza MD [address] [facility] 107 [place] [address] Referring Physician Obstetrics and Gynecology 11/09/18 08/04/22 González Moser, OD [address] [place] [address] Ophthalmology 04/10/20 Carlos Antony MD [address] [place] [address] Dermatology 01/12/21 Esha Madrid MD 1225 [facility] [address], [place] [address] Consulting Physician Interventional Cardiology 08/05/22 Margarito Torre MD [address] [facility] [address] Referring Physician Dermatology 08/05/22 documented as of this encounter
--- OUTSIDE RECORDS SUMMARY | 2024-04-15 23:03 | XMS_ITS | Encounter Summary ---
Author Organization [facility] Facility Care Team Providers Care Cyber Security Architect Name Role Phone Anne Villatoro MD Primary Care Provider + [phone] James Peraza MD Unavailable + [phone] González Moser OD Unavailable [phone] Carlos Antony MD Unavailable [phone] Esha Madrid MD Unavailable + [phone] Margarito Torre MD Unavailable +[phone] Encounter Details Date Type Department Care Team (Latest Contact Info) Description 10/09/2015 Orders Only [facility] CLINCONV ProviderAmber MD [address] [place] [address] Social History Tobacco Use Types Packs/Day Years Used Date Smoking Tobacco: Never Assessed Comments Unknown Sex and Gender Information Value Date Recorded Sex Assigned at Not on file Legal 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 us Historical Provider Final Res ult * SCAN - LABS (10/09/2015 12:00 AM CDT) Narrative 10/09/2015 12:00 AM CDT Ordered by an unspecified provider. Historical Provider Final Res ult documented in this encounter Visit Diagnoses Not on filedocumented in this encounter Care Teams Cyber Security Architect Relationship Specialty Start Date End Date Anne Villatoro MD [address] [facility] [address] [place] [address] PCP - General Internal Medicine 11/09/18 James Peraza MD [address] [address] Referring Physician Obstetrics and Gynecology 11/09/18 08/04/22 González Moser, [address] [place] [address] Ophthalmology 04/10/20 Carlos Antony MD [address] [place] [address] Dermatology 01/12/21 Esha Madrid MD 1225 [facility] [address], [place] [address] Consulting Physician Interventional Cardiology 08/05/22 Margarito Torre MD [address] [facility] [place] [address] Referring Physician Dermatology 08/05/22 documented as of this encounter
--- OUTSIDE RECORDS SUMMARY | 2024-04-15 23:37 | XMS_ITS | Encounter Summary ---
Author Organization [facility] Healthcare Address [address] [place] [address] Care Team Providers Care Hazardous Materials Handler Name Role Phone Anne Villatoro MD Primary Care Provider [phone] González Moser OD Unavailable [phone] Carlos Antony MD Unavailable [phone] Esha Madrid MD Unavailable [phone] Margarito Torre MD Unavailable [phone] Reason for Visit * Reason Onset Date Comments Symptom Based Call 12/23/2023 Encounter Details Date Type Department Care Team ([facility] st Contact Info) Description 12/23/2023 Telephone [facility] Medical Group Primary Care [address] [address] Anne Villatoro MD [facility] [address] Symptom Based Call Social History [...] on file Legal 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 Requesting advice from clinical user experience team lead. 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 Requesting prescription (Valtrex) called into [facility]. She has had these before and the [...] on filedocumented in this encounter Care Teams Hazardous Materials Handler Relationship Specialty Start Date End Date Anne Villatoro MD [facility] [address] PCP - General Internal Medicine 11/09/18 González Moser, OD [address] [place] [address] Ophthalmology 04/10/20 Carlos Antony MD [address] [place] [address] Dermatology 01/12/21 Esha Madrid MD 1225 [facility] [address] [place] [address] Consulting Physician Interventional Cardiology 08/05/22 Margarito Torre MD [address] [facility] [place] [address] Referring Physician Dermatology 08/05/22 documented as of this encounter
--- OUTSIDE RECORDS SUMMARY | 2024-04-15 23:37 | XMS_ITS | Encounter Summary ---
Author Organization [facility] Address [address] [place] [address]. [address] [address] Care Team Providers Care Scuba Dive Training Instructor Name Role Phone Unavailable Primary Care Provider Unavailabl e Encounter Details Date Type Department Care Team (Latest Contact Info) Description 05/31/2020 Travel Social History Tobacco Use Types Packs/Day Years Used Date Smoking Tobacco: Never Assessed Comments Unknown Sex and Gender Information Value Date Recorded Sex Assigned at Not on file Legal Sex Female 11:15 AM PROMOTOR GROUP TICKET SALES Gender Identity Not on file Sexual Orientation Not on file COVID-19 Exposure Response Date Recorded In the last month, have you been in contact with someone who was confirmed or suspected to have Coronavirus / COVID-19? No / Unsure 05/31/2020 12:11 PM PROMOTOR GROUP TICKET SALES documented as of this encounter Plan of Treatment Not on file documented as of this encounter Visit Diagnoses Not on filedocumented in this encounter
--- OUTSIDE RECORDS SUMMARY | 2024-04-15 23:37 | XMS_ITS | Encounter Summary ---
Author Organization [facility] Healthcare Address [address] [place] [address] Care Team Providers Care Senior Software Development Engineer Name Role Phone Anne Villatoro MD Primary Care Provider [phone] González Moser OD Unavailable [phone] Carlos Antony MD Unavailable [phone] Esha Madrid MD Unavailable [phone] Margarito Torre MD Unavailable [phone] Reason for Visit * Reason Onset Date Comments Symptom Based Call 01/27/2023 Encounter Details Date Type Department Care Team ([facility] st Contact Info) Description 01/27/[address] 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 Gender Identity Not on file Sexual Orientation [...] CDT Symptom Based Call Caller's Callback #: [phone] Chief Complaint(s): Body aches, headache, sore throat, [...] on filedocumented in this encounter Care Teams Senior Software Development Engineer Relationship Specialty Start Date End Date Anne Villatoro MD [address] [place] [address] PCP - General Internal Medicine 11/09/18 González Moser, ABILIO [address] [place] [address] Ophthalmology 04/10/20 Carlos Antony MD [address] [place] [address] Dermatology 01/12/21 Esha Madrid MD 1225 [facility] [address], [place] [address] Consulting Physician Interventional Cardiology 08/05/22 Margarito Torre MD [address] [facility] [address] Referring Physician Dermatology 08/05/22 documented as of this encounter
--- OUTSIDE RECORDS SUMMARY | 2024-04-15 23:37 | XMS_ITS | Encounter Summary ---
Author Organization [facility] Address [address] [place] [address]. [place] [address] [place] [address] Care Team Providers Care Production Controller Name Role Phone Unavailable Primary Care Provider Unavailabl e Encounter Details Date Type Department Care Team (Latest Contact Info) Description 05/03/2020 11:23 AM LOTUS NOTES DEVELOPER - 05/03/2020 11:59 PM LOTUS NOTES DEVELOPER Hospital Encounter [facility] [place] [address] Charles Romano MD Discharge Disposition: Home or Self Care (Routine Discharge) Social History Tobacco Use Types Packs/Day Years Used Date Smoking Tobacco: Never Assessed Comments Unknown Sex and Gender Information Value Date Recorded Sex Assigned at Not on file Legal Sex Female 11:15 AM LOTUS NOTES DEVELOPER Gender Identity Not on file Sexual Orientation Not on file COVID-19 Exposure Response Date Recorded In the last month, have you been in contact with someone who was confirmed or suspected to have Coronavirus / COVID-19? No / Unsure 05/03/2020 11:17 AM LOTUS NOTES DEVELOPER documented as of this encounter Plan of Treatment Not on file documented as of this encounter Visit Diagnoses Diagnosis Need for prophylactic vaccination against viral disease- Primary Need for prophylactic vaccination and inoculation against other viral diseases documented in this encounter
--- OUTSIDE RECORDS SUMMARY | 2024-04-15 23:37 | XMS_ITS | Referral Summary ---
Author Organization [facility] Office Center Address [address] [place] [address] Care Team Providers Care Geek Squad Agent Name Role Phone Anne Villatoro MD Primary Care Provider + [phone] González Moser OD Unavailable [phone] Carlos Antony MD Unavailable [phone] Esha Madrid MD Unavailable + [phone] Margarito Torre MD Unavailable [phone] Allergies No known active allergies Medications melatonin tablet Take 1 tablet (3 mg total) by mouth nightly as needed Active ASCORBIC ACID-ASCORBATE CALC ORAL 500 mg daily Active calcium carbonate/paco min D3 (CALCIUM 500 + D ORAL) 600 mg daily Active cholecalcifero l, vitamin D3, (CHOLECALCIFER OL, VIT D3,,BULK, MISC) 1,000 Units daily Active cyanocobalamin (Vitamin B-12) 1,000 mcg tablet daily Active vit C,K-Gy-ctvmj-l utein-zeaxan [id number] cb-vhzl-kc-mg capsule Take 1 tablet by mouth daily Active traZODone (DESYREL) 50 mg tablet Take 1 tablet (50 mg total) by mouth nightly 45 tablet 1 12/10/19 21 Active Additional Information Patient not taking.Reported on 08/11/2023 magnesium gluconate 200 mg tabletIndicati ons:hypomagnes emia 1 tablet (200 mg total) Active iylutuvt-pca-n errous fumarate (Multi Vitamin) 9 mg iron/15 [...] stable. Assessment & Plan (05/01/2022 12:30 PM REVENUE CYCLE CONSULTANT): New onset With WHITEHEAD Responded to amlodipine Cont BP med Ff low sodium diet Exercise ekg today Refer to cardio for stress testing famhx of CAD At risk for stroke or OH Cont to monitor BP and record Low [...] yrs Assessment & Plan (04/10/2020 8:43 AM REVENUE CYCLE CONSULTANT): Dr Colin, Colonoscopy 02/26/2015 normal, due q [address] Colin, patient is sched in may 2020 Family history of macular degeneration 0 Overview (04/10/2020): Brother and Mother Assessment & Plan (07/30/2021 3:18 PM CDT): So far no signs of AMD Takes eye vitamins Assessment & Plan (04/10/2020 8:39 AM REVENUE CYCLE CONSULTANT): Cont annual eye exams with Dr Quiles Refused influenza vaccine 04/10/2020 Assessment & Plan (04/10/2020 8:56 AM REVENUE CYCLE CONSULTANT): Has never been vaccinated for flu, continues to decline. History of COVID-19 11/27/2019 Overview (08/11/2023): Tested at [facility], positive Mild course, WHITEHEAD and fatigue, mild [...] and establishing or updating healthcare power of workers compensation defense attorney document and providing our office with [...] and establishing or updating healthcare power of workers compensation defense attorney document and providing our office with [...] and establishing or updating healthcare power of workers compensation defense attorney document and providing our office with a copy. Assessment & Plan (04/10/2020 8:36 AM REVENUE CYCLE CONSULTANT): Reviewed previous labs and diagnostic test results. [...] and establishing or updating healthcare power of workers compensation defense attorney document and providing our office with a copy. Please give the patient papers with information on Advanced Directives, Healthcare Power of Studio Designer and Living Will to complete and bring [...] please contact the office. I strongly encourage [employer] sign ups. It can facilitate communication flow. [...] strong. Assessment & Plan (04/10/2020 8:16 AM REVENUE CYCLE CONSULTANT): Patient at risk for falls due to [...] nights Assessment & Plan (04/10/2020 8:44 AM REVENUE CYCLE CONSULTANT): Good sleep hygiene. Continue trazodone prn and melatonin prn Assessment & Plan (11/09/2018 9:19 AM CDT): Good sleep hygiene. Continue trazodone and melatonin. Resolved Problems Problem Noted Date Diagnosed Date Resolved Date Atypical chest pain 05/01/2022 08/06/19 23 Assessment & Plan (05/01/2022 12:29 PM REVENUE CYCLE CONSULTANT): Chest pressure woke her up lasted 10 [...] on file Legal Sex Female 7:33 PM REVENUE CYCLE CONSULTANT Gender Identity Not on file Sexual Orientation [...] HEPATITIS C ANTIBODY Routine 05/08/2020 9:55 AM REVENUE CYCLE CONSULTANT Encounter for hepatitis C screening test for [...] * Hepatitis C antibody (05/08/2020 9:55 AM REVENUE CYCLE CONSULTANT) Pathologist [facility] Hep C Ab NON-REACTI VE NON-REACT SHIRAZ [facility] SIGNAL TO CUT-OFF 0.02 <1.00 [facility] Comment: HCV antibody was non-reactive. There is no laboratory evidence of HCV infection. In most cases, no further action is required. However, if recent HCV exposure is suspected, a test for HCV RNA (test code 64564) is suggested. For additional information please refer to http://education.RentStuff.com/faq/WDH96s1 (This link is being provided for informational/ educational purposes only.) Blood specimen (specimen) 05/08/2020 9:55 AM REVENUE CYCLE CONSULTANT 05/08/2020 9:59 AM REVENUE CYCLE CONSULTANT Narrative [facility] - 05/09/2020 2:45 PM REVENUE CYCLE CONSULTANT COLLECTION KIT GIVEN TO PATIENT. PATIENT ADVISED TO RETURN. Anne Villatoro MD LAB MICROBIOLOGY - GENERAL O RDERABLES Final Result [facility] [address] [place] [address] from Last 3 Months or Most Recently Relevant to Health Maintenance Insurance MEDICARE SOLUTIONS MEDICARE SOLUTIONS Care Teams Geek Squad Agent Relationship Specialty Start Date End Date Anne Villatoro MD [address] [place] [address] PCP - General Internal Medicine 11/09/18 González Moser OD [address] [place] [address] Ophthalmology 04/10/20 Carlos Antony MD [address] [place] [address] Dermatology 01/12/21 Esha Madrid MD [facility]5 [facility] [address] [place] [address] Consulting Physician Interventional Cardiology 08/05/22 Margarito Torre MD [address] [facility] [place] [place] [address] Referring Physician Dermatology 08/05/22
--- OUTSIDE RECORDS SUMMARY | 2024-04-15 23:37 | XMS_ITS | Encounter Summary ---
Author Organization [facility] Healthcare Address [address] [place] [address] Care Team Providers Care Process Supervisor Name Role Phone Anne Villatoro MD Primary Care Provider [phone] González Moser OD Unavailable [phone] Carlos Antony MD Unavailable [phone] Esha Madrid MD Unavailable + [phone] Margarito Torre MD Unavailable [phone] Encounter Details Date Type Department Care Team (Late st Contact Info) Description 01/05/2024 Telephone [facility] Medical Group Primary Care [address] [address] Anne Villatoro MD [facility] [address] Social History Tobacco Use Types [...] on file Legal 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 Gender Identity Not on file Sexual Orientation Not on file documented as of this encounter Miscellaneous Notes * Telephone Encounter - Fifi Edge MA - 01/05/2024 1:53 PM CDT Updated- Mammogram- [facility] documented in this encounter Plan of Treatment Not on file documented as of this encounter Procedures Procedure Name Priority Date/Time Associated Diagnosis Comments MAMMOGRAPHY Routine 12/30/2023 documented in this encounter Results * MAMMOGRAPHY (12/30/2023) Mammography Normal Historical Provider HEALTH MAINTENANCE Final Result documented in this encounter Visit Diagnoses Not on filedocumented in this encounter Care Teams Process Supervisor Relationship Specialty Start Date End Date Anne Villatoro MD [address] [place] [address] PCP - General Internal Medicine 11/09/18 González Moser, ABILIO [address] [place] [address] Ophthalmology 04/10/20 Carlos Antony MD [address] [place] [address] Dermatology 01/12/21 [place] [address] [place] [address] [place] [address] Consulting Physician Interventional Cardiology 08/05/22 Margarito Torre MD [address] [facility] [place] [address] Referring Physician Dermatology 08/05/22 documented as of this encounter
--- OUTSIDE RECORDS SUMMARY | 2024-04-15 23:37 | XMS_ITS | Encounter Summary ---
Author Organization [facility] Healthcare Address [address] [place] [address] Care Team Providers Care Structural Steel Fitter Name Role Phone Anne Villatoro MD Primary Care Provider [phone] González Moser OD Unavailable [phone] Carlos Antony MD Unavailable [phone] Esha Madrid MD Unavailable + [phone] Margarito Torre MD Unavailable [phone] Encounter Details Date Type Department Care Team (Late st Contact Info) Description 08/19/2023 Telephone [facility] Medical Group Primary Care [address] [address] Anne Villatoro MD [address] [address] Social History Tobacco Use Types [...] on file Legal Sex Female 7:33 PM MANAGEMENT RETAIL INTERN Gender Identity Not on file Sexual Orientation Not on file documented as of this encounter Miscellaneous Notes * Telephone Encounter - Fifi Edge MA - 08/19/2023 10:14 AM CDT Chart Updated - Colonoscopy- [facility] documented in this encounter Plan of Treatment Not on file documented as of this encounter Procedures Procedure Name Priority Date/Time Associated Diagnosis Comments COLONOSCOPY Routine 06/26/2020 documented in this encounter Results * COLONOSCOPY (06/26/2020) Scribed Colonoscopy Normal Historical Provider HEALTH MAINTENANCE Final Result documented in this encounter Visit Diagnoses Not on filedocumented in this encounter Care Teams Structural Steel Fitter Relationship Specialty Start Date End Date Anne Villatoro MD [address] [place] [address] PCP - General Internal Medicine 11/09/18 González Moser, ABILIO [address] [place] [address] Ophthalmology 04/10/20 Carlos Antony MD [address] [place] [address] Dermatology 01/12/21 Esha Madrid MD 1225 [facility] [address] [place] [address] Consulting Physician Interventional Cardiology 08/05/22 Margarito Torre MD [address] [facility] [place] [address] Referring Physician Dermatology 08/05/22 documented as of this encounter
--- OUTSIDE RECORDS SUMMARY | 2024-04-15 23:37 | XMS_ITS | Encounter Summary ---
Author Organization [facility] Healthcare Address [address] [place] [address] Care Team Providers Care Mobile Disc Jockey Name Role Phone Anne Villatoro MD Primary Care Provider + [phone] González Moser OD Unavailable [phone] Carlos Antony MD Unavailable [phone] Esha Madrid MD Unavailable + [phone] Margarito Torre MD Unavailable +[phone] Encounter Details Date Type Department Care Team (Late st Contact Info) Description 02/06/2023 Telephone [facility] Cardiology [address] [place] [address] Esha Madrid MD [address] [address] Social History Tobacco Use Types [...] on file Legal Sex Female 7:33 PM STUDENT UNION CONSULTANT Gender Identity Not on file Sexual [...] states she [facility] in regard to scheduling a stress test that was neverscheduled. Pt states when she talked to about it, they decided the stress test was not necessary. Contact: documented in this encounter Plan of Treatment Not on file documented as of this encounter Visit Diagnoses Not on filedocumented in this encounter Care Teams Mobile Disc Jockey Relationship Specialty Start Date End Date Anne Villatoro MD [address] [place] [id number] PCP - General Internal Medicine 11/09/18 González Moser OD [address] [place], [place] [id number] Ophthalmology 04/10/20 Carlos Antony MD [address] [place], [place] [address] Dermatology 01/12/21 Esha Madrid MD [address] [facility] [address] [facility] [place] [address] Consulting Physician Interventional Cardiology 08/05/22 Margarito Torre MD [address] [facility] [place] [address] Referring Physician Dermatology 08/05/22 documented as of this encounter
--- OUTSIDE RECORDS SUMMARY | 2024-04-15 23:37 | XMS_ITS | Encounter Summary ---
Author Organization [facility] Address [address] [place] [address] Care Team Providers Care Flash Ranging Crewmember Name Role Phone Unavailable Primary Care Provider Unavailabl e Encounter Details Date Type Department Care Team (Late st Contact Info) Description 12/19/2022 Lab Requisition [facility] - DermPath Lab [address] [facility], [place] [address] Carlos Antony MD [facility] DERMATOLOGY [address] [place] [address] Neoplasm of uncertain behavior of skin [...] CDT) Case Report Dermatopathology Report ? Case: [id number] ? Authorizing Provider: ??Carlos Antony MD ? [...] characteristic determined by the Dermatopathology Laboratory at [facility], directed by Dr. Jak Easton. These tests need not be, and therefore are not, approved by the [place] Food and Drug Administration. The tests are used for clinical purposes. Billing Codes Specimen Charges Stain Charges 97138 1 3 12:23 PM CDT DERMATOPATHOLOGY LABORATORY Embedded Images 3 12:23 PM CDT DERMATOPATHOLOGY LABORATORY Pathology/Cytolo gy TISSUE SPECIMEN FROM SKIN / Unknown 12/19/2022 3:33 AM CDT 12/23/2022 8:09 AM CDT Carlos Antony MD LAB - PATHOLOGY/CYTO LOGY ORDERABLES DERMATOPATHOLOGY LABORATORY [facility] - Department of Dermatology [facility] [address] [place] [address], [address] [phone] documented in this encounter Visit Diagnoses Diagnosis Neoplasm of uncertain behavior of skin documented in this encounter
--- OUTSIDE RECORDS SUMMARY | 2024-04-15 23:37 | XMS_ITS | Encounter Summary ---
Author Organization [facility] Medical Group Address [address] [address] Care Team Providers Care Cardiology Clinical Nurse Specialist Name Role Phone Anne Villatoro MD Primary Care Provider [phone] González Moser OD Unavailable [phone] Carlos Antony MD Unavailable [phone] Esha Madrid MD Unavailable + [phone] Margarito Torre MD Unavailable +[phone] Encounter Details Date Type Department Care Team (Late st Contact Info) Description 12/24/2022 Orders Only [facility] Primary Care [address] [address] Anne Villatoro MD [facility] [address] Hypertension, essential (Primary Dx); Hair [...] on file 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 Gender Identity Not on file Sexual Orientation [...] Free T4 1.1 0.8 - 1.8 ng/dL [facility] Blood 12/24/2022 9:54 AM CDT 12/24/2022 9:55 AM CDT us Anne Villatoro MD LAB BLOOD ORDERABLES Final R esult [facility] [address] [id number] * TSH (12/24/2022 9:54 AM CDT) TSH 3.00 0.40 - 4.50 mIU/L [facility] Blood 12/24/2022 9:54 AM CDT 12/24/2022 9:55 AM CDT us Anne Villatoro MD LAB BLOOD ORDERABLES Final R esult [facility] [address] [place] [address] documented in this encounter Visit Diagnoses Diagnosis Hypertension, essential- Primary Unspecified essential hypertension Hair loss Unspecified alopecia documented in this encounter Care Teams Cardiology Clinical Nurse Specialist Relationship Specialty Start Date End Date Anne Villatoro MD [address] [address] PCP - General Internal Medicine 11/09/18 González Moser, OD [address] [place] [address] Ophthalmology 04/10/20 Carlos Antony MD [address] [place] [address] Dermatology 01/12/21 Esha Madrid MD 12[address] [facility] [address] [place] [address] Consulting Physician Interventional Cardiology 08/05/22 Margarito Torre MD [address] [facility] [place] [address] Referring Physician Dermatology 08/05/22 documented as of this encounter
--- OUTSIDE RECORDS SUMMARY | 2024-04-15 23:37 | XMS_ITS | Encounter Summary ---
Author Organization [facility] Healthcare Address [address] [place] [address] Care Team Providers Care Transmission Superintendent Name Role Phone Anne Villatoro MD Primary Care Provider + [phone] González Moser OD Unavailable [phone] Carlos Antony MD Unavailable [phone] Esha Madrid MD Unavailable + [phone] Margarito Torre MD Unavailable +[phone] Reason for Visit * Reason Comments Follow-up Annual f/u Hypertension Encounter Details Date Type Department Care Team (Late st Contact Info) Description 06/23/2023 9:00 AM CDT Office Visit [facility] Cardiology [address] [facility] [address] [place] [address] Esha Madrid MD [address] [place] [address] Hypertension, essential (Primary Dx); Family history [...] on file 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 vit C,C-Tg-cycdm-lutein-zeaxan 707-351-11-1 yw-cpuh-tl-mg capsule Take 1 tablet by mouth daily [...] may reflect changes made after this encounter. vkkccmel-dyb-rmfme us fumarate (Multi Vitamin) 9 mg iron/15 mL liquid Take by mouth added in this encounter Care Teams Transmission Superintendent Relationship Specialty Start Date End Date Anne Villatoro MD [address] [place] [address] PCP - General Internal Medicine 11/09/18 González Moser OD [address] [place], [place] [address] Ophthalmology 04/10/20 Carlos Antony MD [address] [place] [address] Dermatology 01/12/21 Esha Madrid MD [address] [facility] [address] [place] [address] Consulting Physician Interventional Cardiology 08/05/22 Margarito Torre MD [address] [facility] [place] [address] Referring Physician Dermatology 08/05/22 documented as of this encounter
--- OUTSIDE RECORDS SUMMARY | 2024-04-15 23:37 | XMS_ITS | Encounter Summary ---
Author Organization [facility] Address [address] [place] [address]. [place] [address] [place] [address] Care Team Providers Care Apple Picking Supervisor Name Role Phone Unavailable Primary Care Provider Unavailabl e Encounter Details Date Type Department Care Team (Latest Contact Info) Description 05/31/2020 12:13 PM HEAD GAUGE UNIT OPERATOR - 05/31/2020 11:59 PM HEAD GAUGE UNIT OPERATOR Hospital Encounter [facility] [place] [address] Charles Romano MD Discharge Disposition: Home or Self Care (Routine Discharge) Social History Tobacco Use Types Packs/Day Years Used Date Smoking Tobacco: Never Assessed Comments Unknown Sex and Gender Information Value Date Recorded Sex Assigned at Not on file Legal Sex Female 11:15 AM HEAD GAUGE UNIT OPERATOR Gender Identity Not on file Sexual Orientation Not on file COVID-19 Exposure Response Date Recorded In the last month, have you been in contact with someone who was confirmed or suspected to have Coronavirus / COVID-19? No / Unsure 05/31/2020 12:11 PM HEAD GAUGE UNIT OPERATOR documented as of this encounter Plan of Treatment Not on file documented as of this encounter Visit Diagnoses Diagnosis Need for prophylactic vaccination against viral disease- Primary Need for prophylactic vaccination and inoculation against other viral diseases documented in this encounter
--- OUTSIDE RECORDS SUMMARY | 2024-04-15 23:37 | XMS_ITS | Encounter Summary ---
Author Organization [facility] Medical Group Address [address] [address] Care Team Providers Care Manager Quality Systems Name Role Phone Anne Villatoro MD Primary Care Provider + [phone] James Peraza MD Unavailable + [phone] González Moser OD Unavailable [phone] Carlos Antony MD Unavailable [phone] Encounter Details Date Type Department Care Team (Late st Contact Info) Description 07/15/2022 Telephone [facility] Medical [facility] Cardiology [address] [address] [place] [address] [place] [address] Social History Tobacco Use Types Packs/Day [...] on file 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
--- OUTSIDE RECORDS SUMMARY | 2024-04-15 23:37 | XMS_ITS | Clinical Summary ---
Author Organization [facility] Address [address] [facility] [place] [address] Care Team Providers Care Gyro Mechanic Name Role Phone Unavailable Primary Care Provider Unavailabl e Source Comments [facility],non-owned Affiliates and Associated Physician Practices is amultiple site organization consisting of ambulatory clinics and hospital sitesin [place], [place], [place] and [place]. This disclosure is being madepursuant to the Care Everywhere program and may not contain all information available regarding this patient. Last updated 18.[facility] Social History Tobacco Use Types Packs/Day Years [...]
--- OUTSIDE RECORDS SUMMARY | 2024-04-15 23:37 | XMS_ITS | Clinical Summary ---
Author Organization [facility] Address [address] [place] [address] Care Team Providers Care Automatic Developer Name Role Phone Anne Villatoro MD Primary Care Provider + [phone] González Moser OD Unavailable [phone] Carlos Antony MD Unavailable [phone] Esha Madrid MD Unavailable + [phone] Margarito Torre MD Unavailable +[phone] Allergies No known active allergies Medications melatonin tablet Take 1 tablet (3 mg total) by mouth nightly as needed Active ASCORBIC ACID-ASCORBATE CALC ORAL 500 mg daily Active calcium carbonate/paco min D3 (CALCIUM 500 + D ORAL) 600 mg daily Active cholecalcifero l, vitamin D3, (CHOLECALCIFER OL, VIT D3,,BULK, MISC) 1,000 Units daily Active cyanocobalamin (Vitamin B-12) 1,000 mcg tablet daily Active vit C,A-Yu-khvwr-l utein-zeaxan 249-783-19-1 xk-zuuy-pi-mg capsule Take 1 tablet by mouth daily Active traZODone (DESYREL) 50 mg tablet Take 1 tablet (50 mg total) by mouth nightly 45 tablet 1 12/10/19 21 Active Additional Information Patient not taking.Reported on 08/11/2023 magnesium gluconate 200 mg tabletIndicati ons:hypomagnes emia 1 tablet (200 mg total) Active xsmvfnmm-swf-y errous fumarate (Multi Vitamin) 9 mg iron/15 [...] stable. Assessment & Plan (05/01/2022 12:30 PM POULTRY HANGER): New onset With WHITEHEAD Responded to amlodipine Cont BP med Ff low sodium diet Exercise ekg today Refer to cardio for stress testing famhx of CAD At risk for stroke or SD Cont to monitor BP and record Low [...] yrs Assessment & Plan (04/10/2020 8:43 AM POULTRY HANGER): Dr Colin, Colonoscopy 02/26/2015 normal, due q [address] Colin, patient is sched in may 2020 Family history of macular degeneration 0 Overview (04/10/2020): Brother and Mother Assessment & Plan (07/30/2021 3:18 PM CDT): So far no signs of AMD Takes eye vitamins Assessment & Plan (04/10/2020 8:39 AM POULTRY HANGER): Cont annual eye exams with Dr Quiles Refused influenza vaccine 04/10/2020 Assessment & Plan (04/10/2020 8:56 AM POULTRY HANGER): Has never been vaccinated for flu, continues to decline. History of COVID-19 11/27/2019 Overview (08/11/2023): Tested at [facility], positive Mild course, WHITEHEAD and [...] and establishing or updating healthcare power of assistant prosecuting attorney document and providing our office with [...] and establishing or updating healthcare power of assistant prosecuting attorney document and providing our office with [...] and establishing or updating healthcare power of assistant prosecuting attorney document and providing our office with a copy. Assessment & Plan (04/10/2020 8:36 AM POULTRY HANGER): Reviewed previous labs and diagnostic test results. [...] and establishing or updating healthcare power of assistant prosecuting attorney document and providing our office with a copy. Please give the patient papers with information on Advanced Directives, Healthcare Power of Asbestos Removal Worker and Living Will to complete and bring [...] please contact the office. I strongly encourage [employer] sign ups. It can facilitate communication flow. [...] strong. Assessment & Plan (04/10/2020 8:16 AM POULTRY HANGER): Patient at risk for falls due to [...] nights Assessment & Plan (04/10/2020 8:44 AM POULTRY HANGER): Good sleep hygiene. Continue trazodone prn and melatonin prn Assessment & Plan (11/09/2018 9:19 AM CDT): Good sleep hygiene. Continue trazodone and melatonin. Resolved Problems Problem Noted Date Diagnosed Date Resolved Date Atypical chest pain 05/01/2022 08/06/19 Assessment & Plan (05/01/2022 12:29 PM POULTRY HANGER): Chest pressure woke her up lasted 10 [...] on file Legal Sex Female 7:33 PM POULTRY HANGER Gender Identity Not on file Sexual Orientation [...] HEPATITIS C ANTIBODY Routine 05/08/2020 9:55 AM POULTRY HANGER Encounter for hepatitis C screening test for [...] * Hepatitis C antibody (05/08/2020 9:55 AM POULTRY HANGER) Hep C Ab NON-REACTI VE NON-REACT SHIRAZ [facility] SIGNAL TO CUT-OFF 0.02 <1.00 [facility] Comment: HCV antibody was non-reactive. There is no laboratory evidence of HCV infection. In most cases, no further action is required. However, if recent HCV exposure is suspected, a test for HCV RNA (test code 68239) is suggested. For additional information please refer to http://education.Mebelrama.ServiceMesh/faq/MVB80u2 (This link is being provided for informational/ educational purposes only.) Blood specimen (specimen) 05/08/2020 9:55 AM POULTRY HANGER 05/08/2020 9:59 AM POULTRY HANGER Narrative [facility] - 05/09/2020 2:45 PM POULTRY HANGER COLLECTION KIT GIVEN TO PATIENT. PATIENT ADVISED TO RETURN. Anne Villatoro MD LAB MICROBIOLOGY - GENERAL O RDERABLES Final Result [facility] [id number] [id number] from Last 3 Months or Most Recently Relevant to Health Maintenance Insurance MEDICARE SOLUTIONS MEDICARE SOLUTIONS [facility] MEDICARE Address: [address] [address] Care Teams Automatic Developer Relationship Specialty Start Date End Date Anne Villatoro MD [address] [place] [address] PCP - General Internal Medicine 11/09/18 González Moser OD [address] [place] [address] Ophthalmology 04/10/20 Carlos Antony MD [address] [place] [address] Dermatology 01/12/21 Esha Madrid MD [address] [place] [address] [address] [address] Consulting Physician Interventional Cardiology 08/05/22 Margarito Torre MD [address] [facility] [place] [address] Referring Physician Dermatology 08/05/22
--- OUTSIDE RECORDS SUMMARY | 2024-04-15 23:37 | XMS_ITS | Encounter Summary ---
Author Organization [facility] Medical Group Address [address] [address] Care Team Providers Care Renderer Name Role Phone Anne Villatoro MD Primary Care Provider [phone] González Moser OD Unavailable [phone] Carlos Antony MD Unavailable [phone] Esha Madrid MD Unavailable + [phone] Margarito Torre MD Unavailable [phone] Encounter Details Date Type Department Care Team (Late st Contact Info) Description 12/18/2022 Orders Only [facility] Medical Group Primary Care [address] [address] Anne Villatoro MD [facility] [address] Risk for falls (Primary Dx); [...] on file Legal 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 Female 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 Gender Identity Not on file Sexual Orientation Not on file documented as of this encounter Plan of Treatment Not on file documented as of this encounter Visit Diagnoses Diagnosis Risk for falls- Primary Hypertension, essential Unspecified essential hypertension documented in this encounter Care Teams Renderer Relationship Specialty Start Date End Date Anne Villatoro MD [address] [address] PCP - General Internal Medicine 11/09/18 González Moser, ABILIO [address] [place] [address] Ophthalmology 04/10/20 Carlos Antony MD [address] [place] [address] Dermatology 01/12/21 Esha Madrid MD [address] [facility] [address] [place] [address] Consulting Physician Interventional Cardiology 08/05/22 Margarito Torre MD [address] [facility] [place] [address] Referring Physician Dermatology 08/05/22 documented as of this encounter
--- OUTSIDE RECORDS SUMMARY | 2024-04-15 23:37 | XMS_ITS | Encounter Summary ---
Author Organization [facility] Medical Group Address [address] [address] Care Team Providers Care Manager Logistic Name Role Phone Anne Villatoro MD Primary Care Provider [phone] González Moser OD Unavailable [phone] Carlos Antony MD Unavailable [phone] Esha Madrid MD Unavailable + [phone] Margarito Torre MD Unavailable +[phone] Encounter Details Date Type Department Care Team (Late st Contact Info) Description 12/19/2022 Orders Only [facility] Medical Group Primary Care [address] [address] Anne Villatoro MD [facility] [address] Hypertension, essential (Primary Dx); Abnormal [...] on file 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 Gender Identity Not on file Sexual Orientation Not on file documented as of this encounter Plan of Treatment Not on file documented as of this encounter Visit Diagnoses Diagnosis Hypertension, essential- Primary Unspecified essential hypertension Abnormal TSH documented in this encounter Care Teams Manager Logistic Relationship Specialty Start Date End Date Anne Villatoro MD [address] [place] [address] PCP - General Internal Medicine 11/09/18 González Moser, ABILIO [address] [place] [address] Ophthalmology 04/10/20 Carlos Antony MD [address] [place] [address] Dermatology 01/12/21 Esha Madrid MD 1225 [facility] [address] [place] [address] Consulting Physician Interventional Cardiology 08/05/22 Margarito Torre MD [address] [facility] [place] [address] Referring Physician Dermatology 08/05/22 documented as of this encounter
--- OUTSIDE RECORDS SUMMARY | 2024-04-15 23:37 | XMS_ITS | Encounter Summary ---
Author Organization [facility] Medical Group Address [address] [facility] [address] [place] [address] Care Team Providers Care Spinning Bath Person Name Role Phone Anne Villatoro MD Primary Care Provider + [phone] González Moser OD Unavailable [phone] Carlos Antony MD Unavailable [phone] Esha Madrid MD Unavailable + [phone] Margarito Torre MD Unavailable +[phone] Encounter Details Date Type Department Care Team (Late st Contact Info) Description 12/19/2022 Orders Only [facility] Information Management [address] [place] [address] Scanning, Provider Social History Tobacco [...] on file 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 Gender Identity Not on file Sexual [...] on filedocumented in this encounter Care Teams Spinning Bath Person Relationship Specialty Start Date End Date Anne Villatoro MD [address] [address] PCP - General Internal Medicine 11/09/18 González Moser, OD [address] [place] [address] Ophthalmology 04/10/20 Carlos Antony MD [address] [place] [address] Dermatology 01/12/21 Esha Madrid MD 1225 [facility] [address] [place] [address] Consulting Physician Interventional Cardiology 08/05/22 Margarito Torre MD [address] [facility] [place] [address] Referring Physician Dermatology 08/05/22 documented as of this encounter
--- OUTSIDE RECORDS SUMMARY | 2024-04-15 23:37 | XMS_ITS | Patient Health Summary ---
Author Organization [facility] Address [address] [facility] [place] [address] Care Team Providers Care Service Developer Name Role Phone Unavailable Primary Care Provider Unavailabl e Note from [facility],non-owned Affiliates and Associated Physician Practices is amultiple site organization consisting of ambulatory clinics and hospital sitesin [place], [place], [place] and [place]. This disclosure is being madepursuant to the Care Everywhere program and may not contain all information available regarding this patient. Last updated 18.[facility] Social History Tobacco Use Types Packs/Day Years Used Date Smoking Tobacco: Never Assessed Sex and Gender Information Value Date Recorded Sex Assigned at Not on file Gender Identity Not on file Sexual Orientation Not on file Procedures * DERMATOPATHOLOGY(Performed 12/19/2022) Performed for Neoplasm of uncertain behavior of skin Results * DERMATOPATHOLOGY (12/19/2022 3:33 AM CDT) Case Report Dermatopathology Report ? Case: [id number] ? Authorizing Provider: ??Carlos Antony MD ? Collected: ? 12/19/2022 03:33 AM ? Ordering Location: ? [facility] DermPath Lab ? Received: ?12/23/2022 08:09 AM [...] characteristic determined by the Dermatopathology Laboratory at [facility], directed by Dr. Jak Easton. These tests need not be, and therefore are not, approved by the [place] Food and Drug Administration. The tests are used for clinical purposes. Billing Codes Specimen Charges Stain Charges 78406 1 3 12:23 PM CDT DERMATOPATHOLOGY LABORATORY Embedded Images 3 12:23 PM T DERMATOPATHOLOGY LABORATORY Pathology/Cytolo gy TISSUE SPECIMEN FROM SKIN / Unknown 12/19/2022 3:33 AM CDT 12/23/2022 8:09 AM CDT Carlos Antony MD LAB - PATHOLOGY/CYTO LOGY ORDERABLES DERMATOPATHOLOGY LABORATORY [facility] - Department of Dermatology [facility] Medicine [address] [place] [address], [address] Floor [address] [phone]
--- OUTSIDE RECORDS SUMMARY | 2024-04-15 23:37 | XMS_ITS | Clinical Summary ---
Author Organization [facility] Address [address] [place] [address]. 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
--- OUTSIDE RECORDS SUMMARY | 2024-04-15 23:37 | XMS_ITS | Encounter Summary ---
Author Organization [facility] Address [address] [address] Care Team Providers Care Obiee Architect Name Role Phone Anne Villatoro MD Primary Care Provider + [phone] James Peraza MD Unavailable + [phone] González Moser OD Unavailable [phone] Carlos Antony MD Unavailable +[phone] Encounter Details Date Type Department Care Team (Late st Contact Info) Description 07/15/2022 Telephone [facility] Primary Care [address] [address] Anne Villatoro MD [facility] [address] Social History Tobacco Use Types [...] file Legal Sex Female 7:33 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
--- OUTSIDE RECORDS SUMMARY | 2024-04-15 23:37 | XMS_ITS | Encounter Summary ---
Author Organization [facility] Address [address] [address] Care Team Providers Care Cause Analyst Name Role Phone Anne Villatoro MD Primary Care Provider + [phone] James Peraza MD Unavailable + [phone] González Moser OD Unavailable [phone] Carlos Antony MD Unavailable [phone] Reason for Visit * Reason Onset Date Comments Referral Request 07/12/2022 Encounter Details Date Type Department Care Team (Late st Contact Info) Description 07/12/2022 Telephone [facility] Medical [facility] Primary Care [address] [address] Anne Villatoro MD [facility] [address] Referral Request Social History Tobacco [...] on file Legal Sex Female 7:33 PM POISER Gender Identity Not on file Sexual Orientation Not on file documented as of this encounter Miscellaneous Notes * Telephone Encounter - Magali Aguero MA - 07/12/2022 10:17 AM CDT Faxed * Telephone Encounter - Catina Wagner - 07/12/2022 8:38 AM CDT Referral Provider Name (if patient is seeing a nurse practitioner or physician production assistant, list the FILTER TIP CATCHER/PA, but also their collaborating doctor): [facility] Specialty: Imaging Address: [address] [facility], Zip: [place], [place] Diagnosis Code/Symptom/Reason Patient is being seen: Screening mammogram Date of Appointment: today at 1:15 NPI#: na Tax ID#: na Is insurance in chart up to date? yes Caller???s Callback #: [phone] Additional Comments: Patient has a screening mammogram [...] on filedocumented in this encounter Care Teams Cause Analyst Relationship Specialty Start Date End Date Anne Villatoro MD 1418 [facility] [address] [place], [place] [phone] PCP - General Internal Medicine 11/09/18 James Peraza MD [address] [facility] [address] [place], [place] [phone] Referring Physician Obstetrics and Gynecology 11/09/18 08/04/22 González Moser OD [address] [place], [place] [address] Ophthalmology 04/10/20 Carlos Antony MD [address] [place] [address] Dermatology 01/12/21 documented as of this encounter
--- OUTSIDE RECORDS SUMMARY | 2024-04-15 23:37 | XMS_ITS | Encounter Summary ---
Author Organization [facility] Address [address] [place] [address] Care Team Providers Care Chain Sales Representative Name Role Phone Anne Villatoro MD Primary Care Provider [phone] González Moser OD Unavailable +[phone] Carlos Antony MD Unavailable [phone] Esha Madrid MD Unavailable + [phone] Margarito Torre MD Unavailable +[phone] Encounter Details Date Type Department Care Team (Late st Contact Info) Description 09/23/2023 Telephone [facility] Group Primary Care [address] [address] Anne Villatoro MD [facility] [address] Social History Tobacco Use Types [...] on file 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 Gender Identity Not on file Sexual Orientation [...] Expected: 08/05/2024 (Approximate), Expires: 09/22/2024 Thyroid Function [facility] Routine Hypertension, essential Family history of [...] mass documented in this encounter Care Teams Chain Sales Representative Relationship Specialty Start Date End Date Anne Villatoro MD [facility] [address] PCP - General Internal Medicine 11/09/18 González Moser OD [address] [place] [address] Ophthalmology 04/10/20 Carlos Antony MD [address] [place] [address] Dermatology 01/12/21 Esha Madrid MD 1225 [facility] [address] [place] [address] Consulting Physician Interventional Cardiology 08/05/22 Margarito Torre MD [address] [facility] [place] [address] Referring Physician Dermatology 08/05/22 documented as of this encounter
--- OUTSIDE RECORDS SUMMARY | 2024-04-15 23:37 | XMS_ITS | Referral Summary ---
Author Organization [facility] Address [address] [place] [address] Care Team Providers Care Technical Proposal Writer Name Role Phone Unavailable Primary Care Provider Unavailabl e Source Comments [facility],non-owned Affiliates and Associated Physician Practices is amultiple site organization consisting of ambulatory clinics and hospital sitesin [place], [place], [place] and [place]. This disclosure is being madepursuant to the Care Everywhere program and may not contain all information available regarding this patient. Last updated 18.[facility] [employer] Social History Tobacco Use Types Packs/Day Years Used Date Smoking Tobacco: Never Assessed Sex and Gender Information Value Date Recorded Sex Assigned at Not on file Gender Identity Not on file Sexual Orientation Not on file Plan of Treatment Not on file
--- OUTSIDE RECORDS SUMMARY | 2024-04-15 23:37 | XMS_ITS | Encounter Summary ---
Author Organization [facility] Address [address] [address] Care Team Providers Care Travel Nurse Name Role Phone Anne Villatoro MD Primary Care Provider + [phone] González Moser OD Unavailable [phone] Carlos Antony MD Unavailable [phone] Esha Madrid MD Unavailable + [phone] Margarito Torre MD Unavailable +[phone] Reason for Visit * Reason Comments Medicare Wellness Patient arrives for Medicare Wellness. Encounter Details Date Type Department Care Team (Late st Contact Info) Description 08/05/2022 1:30 PM CDT Office Visit [facility] Primary Care [address] [place] [phone] Anne Villatoro MD [address] [place] [address] Medicare annual wellness visit, subsequent (Primary [...] on file Legal Sex Female 7:33 PM ADMISSIONS RN Gender Identity Not on file Sexual [...] sent through Care Everywhere. * Fall Prevention (Wood Products Manufacturer) (Mauritian) documented in this encounter Progress Notes * [...] Chronic conditions reviewed. HTN Under care of shell sieve operator Now on amlodipine 5 mg daily Most [...] a living will or durable power of workers compensation attorney?: No Would you like information regarding Advanced Directiv (Living Will) and/or Durable Power of State Highway Police Officer?: Yes Do you have to strain or [...] Score: 0 Advanced Directive Durable Power of State Highway Police Officer: NO Living Will: NO Audio Screen: Is the patient having any problems with hearing? No Visual Acuity Screen Normal Up and Go Test: Patient was unsteady or time test was longer than 30 seconds? No STEADI Fall Risk Screening In the past year, patient experienced: One or more falls in the last year: No Primary Pharmacy/DME suppliers: [facility] [place], [place] - [address] [facility] [address] [facility] [address] Detection of Cognitive Impairment: Detect cognitive impairment [...] or updating healthcare power of workers compensation attorney document and providing our office with [...] Villatoro MD OV 1 yr for annual [facility] Labs due: cbc, cmp, lipids, tsh This note is dictated and transcribed by Viro[employer] Direct [employer]. Election Supervisor variances may occur. Despite proofreading, typographical errors [...] healthy diet. The 10-year ASCVD risk score ([place] DK, et al., 2019) is: 9.7% She [...] or updating healthcare power of workers compensation attorney document and providing our office with [...] BLOOD ORDERABLES Final R esult [facility] [address] [place] [address] * (ABNORMAL) Lipid panel (12/13/2022 9:18 AM [...] LDL-C. Javier BOYER et al. DEMIAN. 2013;310(19): 2090-2083 (http://education.ACB ([place] Limited.Aura XM/faq/KCV201) Chol/HDL ratio 3.7 <5.0 (calc) [facility] [...] BLOOD ORDERABLES Final R esult [facility] [address] [place] [address] * Comprehensive metabolic panel (12/13/2022 9:18 AM CDT) [facility] Glucose 90 65 - 99 mg/dL [...] BLOOD ORDERABLES Final R esult [facility] [address] [address], [place] [address] * (ABNORMAL) CBC with auto differential (12/13/2022 [...] BLOOD ORDERABLES Final R esult [facility] [address] [address] [facility] [place] [address] documented in this encounter Visit Diagnoses Diagnosis Medicare annual wellness visit, subsequent- Primary Risk for falls Hypertension, essential Unspecified essential hypertension Low bone mass Chronic insomnia Insomnia, unspecified documented in this encounter Care Teams Travel Nurse Relationship Specialty Start Date End Date Anne Villatoro MD [address] [place] [address] PCP - General Internal Medicine 11/09/18 González Moser OD [address] [place] [address] Ophthalmology 04/10/20 Carlos Antony MD [address] [place] [address] Dermatology 01/12/21 Esha Madrid MD [address] [place] [address], [place] [address] Consulting Physician Interventional Cardiology 08/05/22 Margarito Torre MD [address] [facility] [place] [address] Referring Physician Dermatology 08/05/22 documented as of this encounter
--- OUTSIDE RECORDS SUMMARY | 2024-04-15 23:37 | XMS_ITS | Encounter Summary ---
Author Organization [facility] Address [address] [place] [address]. 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 No / Unsure 05/03/2020 11:17 AM LAVENDER FARM WORKER documented as of this encounter Plan of Treatment Not on file documented as of this encounter Visit Diagnoses Not on filedocumented in this encounter
--- OUTSIDE RECORDS SUMMARY | 2024-04-15 23:37 | XMS_ITS | Encounter Summary ---
Author Organization [facility] Healthcare Address [address] [place] [address] Care Team Providers Care Superintendent Plant Protection Name Role Phone Anne Villatoro MD Primary Care Provider [phone] González Moser OD Unavailable [phone] Carlos Antony MD Unavailable [phone] Esha Madrid MD Unavailable [phone] Margarito Torre MD Unavailable [phone] Reason for Referral * Diagnostic Imaging (Routine) - Authorized Specialty Diagnoses / Procedures Referred By Brandie dunn Referred To Contact Diagnoses Screening mammogram for breast cancer Procedures Screening Mammogram Bilateral W Anne Thompson MD [address] [address] Phone: tel: fax: [address] [address] Referral ID Status Reason Start Date Expiration Date V isits Requested Visits Authorized [id number] Authorized 08/11/2023 09/09/2024 1 1 Reason for Visit * Reason Comments Medicare Annual Wellness Visit Subsequen t Medicare Awv Encounter Details Date Type Department Care Team ([facility] st Contact Info) Description 08/11/2023 10:30 AM CDT Office Visit [facility] Group Primary Care [address] [address] Anne Villatoro MD [address] [place] [address] Medicare annual wellness visit, subsequent (Primary Dx); [...] on file 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 * Fall Prevention (Renewable Energy Division Manager) (Uruguayan) documented in this encounter Progress Notes * Anne Villatoro MD - 08/11/2023 10:30 AM CDT Images from the original note were not included. Patient ID: Lucy Mcallister is a 73 y.o. female. Chief Complaint Chief Complaint Patient presents with Medicare Annual Wellness Visit Subsequent Medicare Awv HPI Here for annual preventive exam. Chronic conditions reviewed. HTN, managed by Cardiology DR Mercy mcgovern family history of CAD and hypertension. She [...] a living will or durable power of vp of global marketing?: (!) No Would you like information regarding Advanced Directive (Living Will) and/or Durable Power of Vaccine Specialist?: (!) Yes Do you have to strain [...] mouth nightly as needed, Disp: , Rfl: zapyrttw-zdg-oqrykvk fumarate (Multi Vitamin) 9 mg iron/15 mL liquid, Take by mouth, Disp: , Rfl: vit C,C-Bh-lobhq-lutein-zeaxan [id number] pw-rlaa-bw-mg capsule, Take 1 tablet by mouth daily, [...] as Referring Physician (Dermatology) Primary Pharmacy/DME suppliers: [facility] - [place], [place] - [address] [facility] [address] [facility] [address] I reviewed the patient???s home and community [...] healthy lifestyle Advanced Directive Durable Power of Vaccine Specialist: No Living Will: No Assessment and Plan: [...] and establishing or updating healthcare power of vp of global marketing document and providing our office with a [...] helping Ff up 1 yr for annual [facility] Colonoscopy results from 2020, Dr Jensen, [facility] Labs due: cbc, cmp, TSH, Lipids Patient [...] and establishing or updating healthcare power of vp of global marketing document and providing our office with a [...] 25 hydroxy (09/16/2023 8:43 AM CDT) Pathologist [facility] Vitamin D 25-OH 42 30 - 100 ng/mL Fora- enex Comment: Vitamin D Status ? 25-OH Vitamin D: Deficiency: ?<20 ng/mL Insufficiency: ? 20 - 29 ng/mL Optimal: ? > or = 30 ng/mL For 25-OH Vitamin D testing on patients on D2-supplementation and patients for whom quantitation of D2 and D3 fractions is required, the [employer]() 25-OH VIT D, (D2,D3), LC/MS/MS is recommended: order code 71734 (patients >2yrs). See Note 1 Note 1 For additional information, please refer to http://education.One[employer] Solutions.Securlinx Integration Software/faq/SWX098 (This link is being provided for informational/ educational purposes only.) Blood 09/16/2023 8:43 AM CDT 09/16/2023 8:44 AM CDT Narrative [facility] - 09/18/2023 1:40 AM CDT FASTING:YES FASTING: YES us Anne Villatoro MD LAB BLOOD ORDERABLES Final R esult [facility] [address] [facility] [place] [address] * (ABNORMAL) Lipid panel (09/16/2023 8:43 AM [...] LDL-C. Javier SS et al. DEMIAN. 2013;310(19): 3426-8455 (http://education.OneHealth Solutions.Securlinx Integration Software/faq/KYJ135) Chol/HDL ratio 3.6 <5.0 (calc) [facility] [...] ORDERABLES Final R esult Performing Organization Address City/[facility] [address]/[facility] Co de Phone Number [facility] [address] [facility] [place] [address] * Thyroid Function [place]vin (09/16/2023 8:43 AM CDT) Pathologist [facility] TSH 3.49 0.40 - 4.50 mIU/L [facility] Blood 09/16/2023 8:43 AM CDT 09/16/2023 8:44 AM CDT Narrative [facility] - 09/18/2023 1:40 AM CDT FASTING:YES FASTING: YES Anne Villatoro MD LAB BLOOD ORDERABLES [facility] Performing Organization Address [facility] [address]/[facility] de Phone Number [facility] [address] [place] [address] * Comprehensive metabolic panel (09/16/2023 8:43 AM CDT) Pathologist [facility] Glucose 92 65 - 99 mg/dL [facility] [...] BLOOD ORDERABLES Final R esult [facility] [address] [place] [address] * (ABNORMAL) CBC with auto differential (09/16/2023 [...] BLOOD ORDERABLES Final R esult [facility] [address] [place] [address] documented in this encounter Visit Diagnoses Diagnosis [...] documented as of this encounter Care Teams Superintendent Plant Protection Relationship Specialty Start Date End Date Anne Villatoro MD [address] [place] [address] PCP - General Internal Medicine 11/09/18 González Moser OD [address] [place] [address] Ophthalmology 04/10/20 Carlos Antony MD [address] [place] [address] Dermatology 01/12/21 Esha Madrid MD [address] [address] Consulting Physician Interventional Cardiology 08/05/22 Margarito Torre MD [address] [facility] [place] [address] Referring Physician Dermatology 08/05/22 documented as of this encounter
--- OUTSIDE RECORDS SUMMARY | 2024-04-15 23:38 | XMS_ITS | Encounter Summary ---
Author Organization [facility] Care Team Providers Care Manager Bar Name Role Phone Anne Villatoro MD Primary Care Provider + [phone] James Peraza MD Unavailable + [phone] González Moser OD Unavailable [phone] Carlos Antony MD Unavailable [phone] Esha Madrid MD Unavailable + [phone] Margarito Torre MD Unavailable +[phone] Encounter Details Date Type Department Care Team (Latest Contact Info) Description 12/13/2015 Orders Only [facility] ProviderAmber MD [address] [place] [address] Social History Tobacco Use Types Packs/Day Years Used Date Smoking Tobacco: Never Assessed Comments Unknown Sex and Gender Information Value Date Recorded Sex Assigned at Not on file 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 Gender Identity Not on file Sexual [...] filedocumented in this encounter Care Teams Manager Bar Relationship Specialty Start Date End Date Anne Villatoro MD 1418 [facility] [address] [place], [place] [address] PCP - General Internal Medicine 11/09/18 James Peraza MD [address] [facility] [address] [place] [address] Referring Physician Obstetrics and Gynecology 11/09/18 08/04/22 González Moser, OD [address] [place] [address] Ophthalmology 04/10/20 Carlos Antony MD [address] [place] [address] Dermatology 01/12/21 Esha Madrid MD [address] [facility] [address], [place] [address] Consulting Physician Interventional Cardiology 08/05/22 Margarito Torre MD [address] [place] [address] Referring Physician Dermatology 08/05/22 documented as of this encounter
--- OUTSIDE RECORDS SUMMARY | 2024-04-15 23:38 | XMS_ITS | Encounter Summary ---
Author Organization [facility] Address [address] [address] Care Team Providers Care Manager Data Name Role Phone Anne Villatoro MD Primary Care Provider + [phone] James Peraza MD Unavailable + [phone] Reason for Referral * Diagnostic Imaging (Routine) - Closed Specialty Diagnoses / Procedures Referred By Brandie dunn Referred To Contact Procedures Screening Mammogram 2D Bilateral [facility] Primary [facility] [address] [place] [address] Phone: tel: fax: Referral ID Status Reason Start Date Expiration Date Visits Re quested Visits Authorized [id number] Closed 02/21/2020 03/22/2021 1 1 CAL SCIENTIFIC LIAISON Encounter Details Date Type Department Care Team ([facility] st Contact Info) Description 02/21/2020 Telephone [facility] Primary Care [address] [place] [phone] Anne Villatoro MD [address] [place] [address] Social History Tobacco Use Types Packs/Day [...] on file Legal Sex Female 7:33 PM MEDICAL SCIENTIFIC LIAISON Gender Identity Not on file Sexual Orientation Not on file documented as of this encounter Miscellaneous Notes * Telephone Encounter - Katharina Kowalski MA - 02/21/2020 3:41 PM MEDICAL SCIENTIFIC LIAISON MAMMOGRAM RESULTS ADDED TO HIM CAL SCIENTIFIC LIAISON documented in this encounter Plan of Treatment [...] filedocumented in this encounter Care Teams Manager Data Relationship Specialty Start Date End Date Anne Villatoro MD 1418 [facility] [address] [place] [address] PCP - General Internal Medicine 11/09/18 James Peraza MD [address] [facility] [address] [place], [place] [address] Referring Physician Obstetrics and Gynecology 11/09/18 08/04/22 documented as of this encounter
--- OUTSIDE RECORDS SUMMARY | 2024-04-15 23:38 | XMS_ITS | Encounter Summary ---
Author Organization [facility] Address [address] [address] Care Team Providers Care Rotor Casting Machine Setup Operator Name Role Phone Anne Villatoro MD Primary Care Provider + [phone] James Peraza MD Unavailable + [phone] González Moser OD Unavailable [phone] Carlos Antony MD Unavailable [phone] Reason for Visit * Reason Onset Date Comments wants TSH Lab 10/01/2021 Encounter Details Date Type Department Care Team (Late st Contact Info) Description 10/01/2021 Telephone [facility] Primary Care [address] [phone] Anne Villatoro MD [facility] [address] wants TSH Lab Social History [...] file 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 Gender Identity Not on file Sexual Orientation [...] alopecia documented in this encounter Care Teams Rotor Casting Machine Setup Operator Relationship Specialty Start Date End Date Anne Villatoro MD [address] [phone] PCP - General Internal Medicine 11/09/18 James Peraza MD [address] [address] Referring Physician Obstetrics and Gynecology 11/09/18 08/04/22 González Moser, ABILIO [address] [place] [address] Ophthalmology 04/10/20 Carlos Antony MD [address] [facility] [place] [address] Dermatology 01/12/21 documented as of this encounter
--- OUTSIDE RECORDS SUMMARY | 2024-04-15 23:38 | XMS_ITS | Encounter Summary ---
Author Organization [facility] Facility Care Team Providers Care Biodiesel Engine Specialist Name Role Phone Anne Villatoro MD Primary Care Provider + [phone] James Peraza MD Unavailable + [phone] González Moser OD Unavailable [phone] Carlos Antony MD Unavailable +[phone] Esha Madrid MD Unavailable + [phone] Margarito Torre MD Unavailable +[phone] Encounter Details Date Type Department Care Team (Latest Contact Info) Description 10/09/2015 Orders Only [facility] ProviderAmber MD [address] [place] [address] Social History Tobacco Use Types Packs/Day Years Used Date Smoking Tobacco: Never Assessed Comments Unknown Sex and Gender Information Value Date Recorded Sex Assigned at Not on file Legal Sex Female 7:[address]/MEDICAL INTERPRETER Gender Identity Not on file Sexual Orientation [...] on filedocumented in this encounter Care Teams Biodiesel Engine Specialist Relationship Specialty Start Date End Date Anne Villatoro MD [address] [facility] 250 [place] [address] PCP - General Internal Medicine 11/09/18 James Peraza MD [address] [address] Referring Physician Obstetrics and Gynecology 11/09/18 08/04/22 González Moser, [address] [place] [address] Ophthalmology 04/10/20 Carlos Antony MD [address] [place] [address] Dermatology 01/12/21 Esha Madrid MD [address] [facility] [address], [place] [address] Consulting Physician Interventional Cardiology 08/05/22 Margarito Torre MD [address] [facility] [place] [address] Referring Physician Dermatology 08/05/22 documented as of this encounter
--- OUTSIDE RECORDS SUMMARY | 2024-04-15 23:38 | XMS_ITS | Encounter Summary ---
Author Organization [facility] Address [address] [address] Care Team Providers Care Summer Law Associate Name Role Phone Anne Villatoro MD Primary Care Provider + [phone] James Peraza MD Unavailable + [phone] González Moser OD Unavailable [phone] Carlos Antony MD Unavailable [phone] Reason for Visit * Reason Comments Medicare Annual Wellness Visit Subsequen t Follow up Chronic Conditions Encounter Details Date Type Department Care Team (Late st Contact Info) Description 07/30/2021 3:00 PM CDT Office Visit [facility] Primary Care [address] [address] Anne Villatoro MD [facility] [address] Medicare annual wellness visit, subsequent [...] on file Legal 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 Patient Education Fall Prevention INDUSTRIAL GAS PRODUCTION OPERATOR: Fall prevention includes ways to make your [...] that fit well and have soles that footwear sales representative. Wear shoes both inside and outside. Use slippers with good footwear sales representative. Do not wear shoes with high heels. [...] to help you reach an item. ?? [place] or place reflective tape on the edges of your stairs. This will help you see the stairs better. Follow up with your healthcare provider as directed: Write down your questions so you remember to ask them during your visits. ?? 2017 [employer] Information is for End User's use only and may not be sold, redistributed or otherwise used for commercial purposes. All illustrations and images included in CareNotes?? are the copyrighted property of [email or web address], [employer]. or [employer]. The above information is an recreation therapy aide only. It is not intended as [...] a living will or durable power of sql architect?: No Would you like information regarding Advanced Directiv (Living Will) and/or Durable Power of Pension Consultant?: No Do you have trouble hearing the [...] mouth nightly 45 tablet 1 ??? vit C,V-Bi-oletr-lutein-zeaxan [id number] uj-ofcd-lm-mg capsule Take 1 tablet by mouth daily [...] at all Advanced Directive Durable Power of Pension Consultant: No Living Will: No Audio Screen: Is [...] Carlos Antony MD (Dermatology) Primary Pharmacy/DME suppliers: [id number] - [place] - [address] [facility] [address] [facility] [address] Detection of Cognitive Impairment: Detect cognitive impairment [...] and establishing or updating healthcare power of sql architect document and providing our office with a [...] This note is dictated and transcribed by [employer] Software. Development Technologist variances may occur. Despite proofreading, typographical errors [...] and establishing or updating healthcare power of sql architect document and providing our office with a [...] 07/30/2021 added in this encounter Care Teams Summer Law Associate Relationship Specialty Start Date End Date Anne Villatoro MD 1418 [facility] 250 [place] [address] PCP - General Internal Medicine 11/09/18 James Peraza MD [address] [facility] 107 [place] [address] Referring Physician Obstetrics and Gynecology 11/09/18 08/04/22 González Moser, [address] [place] [address] Ophthalmology 04/10/20 Carlos Antony MD [address] [place] [address] Dermatology 01/12/21 documented as of this encounter
--- OUTSIDE RECORDS SUMMARY | 2024-04-15 23:38 | XMS_ITS | Encounter Summary ---
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
--- OUTSIDE RECORDS SUMMARY | 2024-04-15 23:38 | XMS_ITS | Encounter Summary ---
Author Organization [facility] Address [address] [facility] [address] [place] [address] Care Team Providers Care Steam Box Operator Name Role Phone Anne Villatoro MD Primary Care Provider + [phone] James Peraza MD Unavailable + [phone] González Moser OD Unavailable [phone] Carlos Antony MD Unavailable [phone] Reason for Visit * Reason Comments New Patient Referred by Dr. Loretta watts for a stress test. Fam hx of CAD * Consultation (Routine) - Closed Specialty Diagnoses / Procedures Referred By Brandie dunn Referred To Contact Cardiology Diagnoses Hypertension, essential Atypical chest pain Anne Villatoro MD [address] [address] Phone: tel: fax: Esha Madrid MD [address] [address] Phone: tel: fax: Referral ID Status Reason Start Date Expiration Date V isits Requested Visits Authorized [id number] Closed Specialty Services Required 05/01/2022 05/31/2023 1 1 Encounter Details Date Type Department Care Team (Late st Contact Info) Description 06/17/2022 10:30 AM DISTRIBUTION ENGINEERING TECHNOLOGIST Office Visit [facility] Cardiology [address] [facility] [address] [place] [address] Esha Madrid MD 1225 [facility] [address] [place] [address] Family history of early CAD (Primary Dx); [...] on file Legal Sex Female 7:33 PM DISTRIBUTION ENGINEERING TECHNOLOGIST Gender Identity Not on file Sexual Orientation Not on file documented as of this encounter Last Filed Vital Signs Vital Sign Reading Time Taken Comments Blood Pressure 116/70 06/17/2022 10:22 AM DISTRIBUTION ENGINEERING TECHNOLOGIST Pulse 80 06/17/2022 10:22 AM DISTRIBUTION ENGINEERING TECHNOLOGIST Temperature - - Respiratory Rate - - Oxygen Saturation 94% 06/17/2022 10:22 AM DISTRIBUTION ENGINEERING TECHNOLOGIST Inhaled Oxygen Concentration - - Weight 60 kg (132 lb 3.2 oz) 06/17/2022 10:22 AM DISTRIBUTION ENGINEERING TECHNOLOGIST Height 154.9 cm (5' 1 ) 06/17/2022 10:22 AM DISTRIBUTION ENGINEERING TECHNOLOGIST Body Mass Index 24.98 06/17/2022 10:22 AM DISTRIBUTION ENGINEERING TECHNOLOGIST documented in this encounter Ordered Prescriptions Prescription Sig Dispense Quantity Refills Last Filled Start Date End Date amLODIPine (NORVASC) 5 mg tabletIndications: Hypertension, essential Take 1 tablet (5 mg total) by mouth daily 90 tablet 3 06/17/2022 06/23/2023 documented in this encounter Progress Notes * Esha Madrid MD - 06/17/2022 10:30 AM CST [facility] CARDIOLOGY DATE OF VISIT: [...] as needed) 45 tablet 1 ??? vit C,Q-Pq-gauvy-lutein-zeaxan [id number] cf-mnzt-dc-mg capsule Take 1 tablet by mouth daily [...] 06/17/2022 documented in this encounter Care Teams Steam Box Operator Relationship Specialty Start Date End Date Anne Villatoro MD 1418 [facility] 250 [place] [address] PCP - General Internal Medicine 11/09/18 James Peraza MD [address] [facility] [address] [place], [place] [address] Referring Physician Obstetrics and Gynecology 11/09/18 08/04/22 González Moser OD [address] [place], [place] [address] Ophthalmology 04/10/20 Carlos Antony MD [address] [place], [place] [address] Dermatology 01/12/21 documented as of this encounter
--- OUTSIDE RECORDS SUMMARY | 2024-04-15 23:38 | XMS_ITS | Encounter Summary ---
Author Organization [facility] Address [address] [address] Care Team Providers Care Senior Design Engineer Name Role Phone Anne Villatoro MD Primary Care Provider + [phone] James Peraza MD Unavailable + [phone] González Moser OD Unavailable [phone] Encounter Details Date Type Department Care Team (Late st Contact Info) Description 05/12/2020 Telephone [facility] Primary Care 14[address] [facility] [address] [place] [address] Kyleigh Vick MA Social History Tobacco [...] on file Legal Sex Female 7:33 PM MOVERS Gender Identity Not on file Sexual Orientation Not on file documented as of this encounter Miscellaneous Notes * Telephone Encounter - Kyleigh Vick MA - 05/12/2020 3:09 PM CST Lab orders sent to [facility] documented in this encounter Plan of Treatment [...] Primary documented in this encounter Care Teams Senior Design Engineer Relationship Specialty Start Date End Date Anne Villatoro MD [address] [place] [address] PCP - General Internal Medicine 11/09/18 James Peraza MD [address] [address] Referring Physician Obstetrics and Gynecology 11/09/18 08/04/22 González Moser, ABILIO [address] [place] [address] Ophthalmology 04/10/20 documented as of this encounter
--- OUTSIDE RECORDS SUMMARY | 2024-04-15 23:38 | XMS_ITS | Encounter Summary ---
Author Organization [facility] Address [address] [facility] 300 [place] [address] Care Team Providers Care Bench Assembler Electrical Name Role Phone Unavailable Primary Care Provider Unavailabl e Encounter Details Date Type Department Care Team (Late st Contact Info) Description 11/04/2018 Orders Only [facility] Internal Medicine [address] [facility] [address] [place] [address] Nikkie Farooq MA Social History [...] on file Legal Sex Female 7:33 PM IP LITIGATION PARALEGAL Gender Identity Not on file Sexual Orientation [...]
--- OUTSIDE RECORDS SUMMARY | 2024-04-15 23:38 | XMS_ITS | Encounter Summary ---
Author Organization [facility] Address [address] [address] Care Team Providers Care Loan Workout Officer Name Role Phone Anne Villatoro MD Primary Care Provider + [phone] James Peraza MD Unavailable + [phone] González Moser OD Unavailable [phone] Carlos Antony MD Unavailable [phone] Reason for Visit * Reason Onset Date Comments Call Back 04/25/2022 Medical Question/Miscellaneous 04/25/2022 Encounter Details Date Type Department Care Team ([facility] st Contact Info) Description 04/25/2022 Telephone [facility] Primary Care [address] [address] Anne Villatoro MD [facility] [address] Call Back; Medical Question/Miscellaneous Social [...] on file Legal Sex Female 7:33 PM MARKET DEVELOPER Gender Identity Not on file Sexual Orientation Not on file documented as of this encounter Miscellaneous Notes * Telephone Encounter - Kasandra Byers - 04/25/2022 1:49 PM CST Medical Question/Miscellaneous Caller???s Concern: Patient called to check status of advise on HTN. There were some extensive note/instructions listed in another crisis nurse encounter that Dr. Villatoro's team is to relay to the patientincluding rx information and f/u instructions. Warm transferred to Nikkie at back line to explain Caller???s Call back #: [phone] Does message need to be routed?Yes-Action Needed ET DEVELOPER * Telephone Encounter - Nikkie Farooq MA - 04/25/2022 10:22 AM MARKET DEVELOPER Sent to in another encounter waiting on response ET DEVELOPER * Telephone Encounter - Anita Méndez - 04/25/2022 9:30 AM CST Call Back Caller???s Concern: Patient called in regards to Triage call on 04/24/22. Advised was routed to Provider and waiting on response. Call back requested. Caller???s Call back #: [phone] Does message need to be routed? Yes-Action Needed ET DEVELOPER documented in this encounter Plan of Treatment Not on file documented as of this encounter Visit Diagnoses Not on filedocumented in this encounter Care Teams Loan Workout Officer Relationship Specialty Start Date End Date Anne Villatoro MD [address] [place] [address] PCP - General Internal Medicine 11/09/18 James Peraza MD [address] [address] Referring Physician Obstetrics and Gynecology 11/09/18 08/04/22 González Moser, OD [address] [place], [place] [address] Ophthalmology 04/10/20 Carlos Antony MD [address] [place], [place] [phone] Dermatology 01/12/21 documented as of this encounter
--- OUTSIDE RECORDS SUMMARY | 2024-04-15 23:38 | XMS_ITS | Encounter Summary ---
Author Organization [facility] Address [address] [facility] [address] [place] [address] Care Team Providers Care Roving Can Tender Name Role Phone Anne Villatoro MD Primary Care Provider + [phone] James Peraza MD Unavailable + [phone] Reason for Visit * Reason Comments Medicare Annual Wellness Visit Subsequen t Encounter Details Date Type Department Care Team (Late st Contact Info) Description 11/09/2018 8:45 AM CDT Office Visit [facility] Internal Medicine [address] [facility] [address] [place] [address] Anne Villatoro MD [address] [place] [address] Medicare annual wellness visit, subsequent (Primary [...] file Legal Sex Female 7:33 PM FINANCIAL COUNSELOR Gender Identity Not on file Sexual Orientation [...] Directive (Living Will) and/or Durable Power of Zigzag Machine Operator?: Yes - Please bring a copy to [...] file Gets together: Not on file Attends shinto service: Not on file Active member of [...] Physician (Obstetrics and Gynecology) Primary Pharmacy/DME suppliers: [id number] - [place], [place] - [address] [facility] [address] [place] [address] Detection of Cognitive Impairment: The patient does [...] the plan were completed as outlined by [facility]. A copy of the prevention plan was [...] 11/09/2018 documented in this encounter Care Teams Roving Can Tender Relationship Specialty Start Date End Date Anne Villatoro MD [address] [place] [address] PCP - General Internal Medicine 11/09/18 James Peraza MD [address] [place] [address] [place] [address] Referring Physician Obstetrics and Gynecology 11/09/18 08/04/22 documented as of this encounter
--- OUTSIDE RECORDS SUMMARY | 2024-04-15 23:38 | XMS_ITS | Encounter Summary ---
Author Organization [facility] Address [address] [facility] [address] [place] [address] Care Team Providers Care Bakelite Molder Name Role Phone Anne Villatoro MD Primary Care Provider + [phone] James Peraza MD Unavailable + [phone] Encounter Details Date Type Department Care Team (Late st Contact Info) Description 11/09/2018 Orders Only [facility] Internal Medicine [address] [facility] [address] [place] [address] Anne Villatoro MD [facility] [address] Post-menopausal (Primary Dx) Social History [...] on file Legal Sex Female 7:33 PM POOL SERVICER Gender Identity Not on file Sexual Orientation Not on file documented as of this encounter Plan of Treatment Not on file documented as of this encounter Visit Diagnoses Diagnosis Post-menopausal- Primary Asymptomatic postmenopausal status (age-related) (natural) documented in this encounter Care Teams Bakelite Molder Relationship Specialty Start Date End Date Anne Villatoro MD [address] [place] [address] [place] [phone] PCP - General Internal Medicine 11/09/18 James Peraza MD [address] [address] [address] [place], [place] [address] Referring Physician Obstetrics and Gynecology 11/09/18 08/04/22 documented as of this encounter
--- OUTSIDE RECORDS SUMMARY | 2024-04-15 23:38 | XMS_ITS | Encounter Summary ---
Author Organization [facility] Address [address] [address] Care Team Providers Care Events Administrative Assistant Name Role Phone Anne Villatoro MD Primary Care Provider + [phone] James Peraza MD Unavailable + [phone] González Moser OD Unavailable [phone] Carlos Antony MD Unavailable [phone] Reason for Referral * Consultation (Routine) - Closed Specialty Diagnoses / Procedures Referred By Contac t Referred To Contact Cardiology Diagnoses Hypertension, essential Atypical chest pain Anne Villatoro MD [address] [address] Phone: tel: fax: Michelle Madrid MD [facility] [address] Phone: tel: fax: Referral ID Status Reason Start Date Expiration Date V isits Requested Visits Authorized [id number] Closed Specialty Services Required 05/01/2022 05/31/2023 1 1 Question Answer Please select the performing region: External Order [171] To provider: MICHELLE MADRID [[id number]] # of visits: 1 BER Reason for Visit * Reason Comments Hypertension New onset, with Head aches Chest Pain 1 episode Encounter Details Date Type Department Care Team (Late st Contact Info) Description 05/01/2022 11:30 AM SLABBER Office Visit [facility] Primary Care [address] [address] Anne Villatoro MD [facility] [address] Hypertension, essential (Primary Dx); Atypical chest pain; [...] on file Legal Sex Female 7:33 PM SLABBER Gender Identity Not on file Sexual Orientation Not on file documented as of this encounter Last Filed Vital Signs Vital Sign Reading Time Taken Comments Blood Pressure 120/78 05/01/2022 11:53 AM SLABBER Pulse 77 05/01/2022 11:53 AM SLABBER Temperature 36.1 ??C (96.9 ??F) 05/01/2022 11:[address] Respiratory Rate - - Oxygen Saturation 93% 05/01/2022 11:53 AM SLABBER Inhaled Oxygen Concentration - - Weight 60.1 kg (132 lb 6.4 oz) 05/01/2022 11:53 AM SLABBER Height 154.9 cm (5' 0.98 ) 05/01/2022 11:[address] Body Mass Index 25.03 05/01/2022 11:53 AM SLABBER documented in this encounter Patient Instructions * Attachments The following attachments cannot be sent through Care Everywhere. * DASH Eating Plan (Magazine Designer) (Afghan) documented in this encounter Progress Notes * [...] up high and readings were 202/102 at [facility] with a dull WHITEHEAD Pharmacist took [...] mouth as needed) 45 tablet 1 vit C,Z-Ms-cquvd-lutein-zeaxan [id number] nq-lpje-uc-mg capsule Take 1 tablet by mouth daily [...] CP, ecg shows no signs of prior SC, LVH or ischemia Assessment & Plan: Diagnoses and all orders for this visit: Hypertension, essential (Primary) Assessment & Plan: New onset With WHITEHEAD Responded to amlodipine Cont BP med Ff low sodium diet Exercise ekg today Refer to cardio for stress testing famhx of CAD At risk for stroke or SC Cont to monitor BP and record Orders: [...] This note is dictated and transcribed by [employer] Direct Software. Professor Of Radiology variances may occur. Despite proofreading, typographical errors may occur. BER documented in this encounter Procedure Notes * Anne Villatoro MD - 05/01/2022 11:30 AM CSTAssociated Order(s): ECG 12 lead Pre-Procedure Diagnose(s): Hypertension, essential Post-Procedure Diagnose(s): Hypertension, essential ECG 12 lead Date/Time: 05/01/2022 12:33 PM Performed by: Anne Villatoro MD Authorized by: nAne Villatoro MD Interpreted by ED physician: by [...] amlodipine. Bp controlled today, no longer 200/100 BER documented in this encounter Miscellaneous Notes * Result Encounter Note - Anne Villatoro MD - 05/02/2022 11:42 PM SLABBER Discussed ECG result with patient at [facility]: No prior ECG for comparison NSR, normal axis PRWP, likely lead placement No Q waves No ST T wave changes No LVH In setting of new onset HTN and atyp CP, ecg shows no signs of prior SC, LVH or ischemia BER * Assessment & Plan Note - Anne Villatoro MD - 05/01/2022 12:28 PM SLABBER Associated Problem(s): Atypical chest pain (Resolved 08/05/2022) Chest pressure woke her up lasted 10 mins No assoc sx Patient later had elev BP new very high with WHITEHEAD Rule out cad ekg today Refer to cardio recommend stress testing BER * Assessment & Plan Note - Anne Villatoro MD - 05/01/2022 12:23 PM SLABBER Associated Problem(s): Hypertension, essential New onset With WHITEHEAD Responded to amlodipine Cont BP med Ff low sodium diet Exercise ekg today Refer to cardio for stress testing famhx of CAD At risk for stroke or SC Cont to monitor BP and record BER BER documented in this encounter Plan of Treatment Scheduled Referrals Name Type Priority Associated Diagnoses Order Schedule Ambulatory referral to Cardiology Outpatient Referral Routine Hypertension, essential Atypical chest pain Expected: 05/15/2022 (Approximate), Expires: 05/01/2023 documented as of this encounter Procedures Procedure Name Priority Date/Time Associated Diagnosis Comments ECG 12-LEAD Routine 05/01/2022 12:33 PM SLABBER Hypertension, essential documented in this encounter Results * ECG 12-LEAD (05/01/2022 12:33 PM SLABBER) Narrative Anne Villatoro MD - 05/01/2022 12:33 PM SLABBER Anne Villatoro MD ? 05/02/2022 11:45 PM [...] total) added in this encounter Care Teams Events Administrative Assistant Relationship Specialty Start Date End Date Anne Villatoro MD 1418 [facility] [address] [place] [address] PCP - General Internal Medicine 11/09/18 James Peraza MD [address] [facility] [address] [place] [address] Referring Physician Obstetrics and Gynecology 11/09/18 08/04/22 González Moser, [address] [place] [address] Ophthalmology 04/10/20 Carlos Antony MD [address] [place], [place] [address] Dermatology 01/12/21 documented as of this encounter
--- OUTSIDE RECORDS SUMMARY | 2024-04-15 23:38 | XMS_ITS | Encounter Summary ---
Author Organization [facility] Address [address] [address] Care Team Providers Care Bell Hole Digger Name Role Phone Anne Villatoro MD Primary Care Provider + [phone] James Peraza MD Unavailable [phone] González Moser OD Unavailable [phone] Carlos Antony MD Unavailable [phone] Encounter Details Date Type Department Care Team (Late st Contact Info) Description 07/30/2021 Orders Only [facility] Medical [facility] Primary [facility] [address] [address] Anne Villatoro MD [facility] [address] Medicare annual wellness visit, subsequent [...] on file Legal Sex Female 7:33 PM WAIST PRESSER Gender Identity Not on file Sexual Orientation [...] BLOOD ORDERABLES Final R esult [facility] [address] [facility] [place] [address] * REFLEXIVE URINE CULTURE (10/17/2021 11:43 AM CDT) Urine culture [facility] Comment:NO CULTURE INDICATED 10/17/2021 11:4 3 AM CDT 10/17/2021 11:44 AM CDT Narrative [facility] - 10/18/2021 6:17 AM CDT FASTING:YES FASTING: YES Anne Villatoro MD LAB MICROBIOLOGY - GENERAL O RDERABLES Final Result Performing Organization Address [facility] Co de Phone Number [facility] [address] [place] [address] * Vitamin D 25 hydroxy (10/17/2021 11:43 AM CDT) Pathologist [facility] Vitamin D 25-OH 46 30 - 100 ng/mL [facility] Comment: Vitamin D Status ? 25-OH Vitamin D: Deficiency: ?<20 ng/mL Insufficiency: ? 20 - 29 ng/mL Optimal: ? > or = 30 ng/mL For 25-OH Vitamin D testing on patients on D2-supplementation and patients for whom quantitation of D2 and D3 fractions is required, the QuestAssureD(TM) 25-OH VIT D, (D2,D3), LC/MS/MS is recommended: order code 32134 (patients >2yrs). See Note 1 Note 1 For additional information, please refer to http://education.Kueski.Larotec/faq/RIC869 (This link is being provided for informational/ educational purposes only.) Blood specimen (specimen) 10/17/2021 11:43 AM CDT 10/17/2021 11:44 AM CDT Narrative [facility] - 10/18/2021 6:17 AM CDT FASTING:YES FASTING: YES us Anne Villatoro MD LAB BLOOD ORDERABLES Final R esult Performing Organization Address City/[facility]/ZIP Co de Phone Number [facility] [address] [place] [address] * (ABNORMAL) Urinalysis reflex to microscopic and culture Urine, clean voided (10/17/2021 11:43 AM CDT) Color, ur YELLOW YELLOW [facility] Appearance, ur CLEAR CLEAR [facility] Specific gravity 1.025 1.001 - 1.035 [facility] pH, ur < OR = 5.0 5.0 - 8.0 [facility] Glucose, ur NEGATIVE NEGATIVE [facility] Bilirubin, ur NEGATIVE NEGATIVE [facility] Ketones, ur TRACE(A) NEGATIVE [facility] Blood, ur NEGATIVE NEGATIVE [facility] Protein, ur, quant NEGATIVE NEGATIVE [facility] Nitrites, ur NEGATIVE NEGATIVE [facility] Leukocyte esterase, ur NEGATIVE NEGATIVE [facility] WBC, ur NONE SEEN < OR = 5 /HPF [facility] RBC, ur NONE SEEN < OR = 2 /HPF [facility] Epithelial cells, squamous, ur 6-10(A) < OR = 5 /HPF [facility] Bacteria, ur, quant NONE SEEN NONE SEEN /HPF [facility] Hyaline cast 0-5(A) NONE SEEN /LPF [facility] Urine, clean voided 10/17/2021 11:43 AM CDT 10/17/2021 11:44 AM CDT Narrative [facility] - 10/18/2021 6:17 AM CDT FASTING:YES FASTING: YES us Anne Villatoro MD LAB MICROBIOLOGY - GENERAL O RDERABLES Final Result [facility] [address] [place] [phone] * (ABNORMAL) Lipid panel (10/17/2021 11:43 AM [...] of LDL-C. Javier BOYER et al. DEMIAN. 2013;310(37): 4689-3971 (http://education.PlayerLync/faq/TDM776) Chol/HDL ratio 3.2 <5.0 (calc) [facility] [...] LAB BLOOD ORDERABLES Final R esult [facility] [address] [place] [address] * Comprehensive metabolic panel (10/17/2021 11:43 AM CDT) [facility] Glucose 87 65 - 99 mg/dL [facility] Comment: ? Fasting reference interval BUN 23 7 - 25 mg/dL [facility] Creatinine 0.90 0.50 - 0.99 mg/dL [facility] Comment: For patients >49 years of age, the reference limit for Creatinine is approximately 13% higher for people identified as -E[place]ian. eGFR NON-AFR. ANGUILLAN 65 > OR = 60 mL/min/1 .73m2 [facility] EGFR 76 > OR = 60 mL/min/1 .73m2 [facility] BUN/creat ratio NOT APPLICABLE 6 - 22 (calc) [facility] Sodium 138 135 - 146 mmol/L [facility] Potassium, pl 4.6 3.5 - 5.3 mmol/L [facility] Chloride 102 98 - 110 mmol/L [facility] CO2 31 20 - 32 mmol/L [facility] Calcium 9.5 8.6 - 10.4 mg/dL [facility] Protein, sr 6.8 6.1 - 8.1 g/dL [facility] Albumin 4.6 3.6 - 5.1 g/dL [facility] GLOBULIN 2.2 1.9 - 3.7 g/dL (calc) [facility] Alb/glob ratio 2.1 1.0 - 2.5 (calc) [facility] Bilirubin, total 0.5 0.2 - 1.2 mg/dL [facility] Alk phos 45 37 - 153 U/L [facility] AST 20 10 - 35 U/L [facility] ALT (SGPT) 16 6 - 29 U/L [facility] Blood specimen (specimen) 10/17/2021 11:43 AM CDT 10/17/2021 11:44 AM CDT Narrative [facility] - 10/18/2021 6:17 AM CDT FASTING:YES FASTING: YES us Anne Villatoro MD LAB BLOOD ORDERABLES Final R esult [facility] [address] [place] [address] * (ABNORMAL) CBC without differential (10/17/2021 11:43 [...] BLOOD ORDERABLES Final R esult [facility] [address] [place] [address] documented in this encounter Visit Diagnoses Diagnosis Medicare annual wellness visit, subsequent- Primary Vitamin D deficiency documented in this encounter Care Teams Bell Hole Digger Relationship Specialty Start Date End Date Anne Villatoro MD [address] [place] [address] [address] [place], [place] [id number] PCP - General Internal Medicine 11/09/18 James Peraza MD [address] [facility] [address] [place] [address] Referring Physician Obstetrics and Gynecology 11/09/18 08/04/22 González Moser OD [address] [place] [address] Ophthalmology 04/10/20 Carlos Antony MD [address] [place] [address] Dermatology 01/12/21 documented as of this encounter
--- OUTSIDE RECORDS SUMMARY | 2024-04-15 23:38 | XMS_ITS | Encounter Summary ---
Author Organization [facility] Address [address] [address] Care Team Providers Care Rabbit Breeder Name Role Phone Anne Villatoro MD Primary Care Provider + [phone] James Peraza MD Unavailable [phone] González Moser OD Unavailable [phone] Reason for Visit * Reason Comments Medicare Annual Wellness Visit Subsequen t Encounter Details Date Type Department Care Team (Late st Contact Info) Description 04/10/2020 8:00 AM FRUIT LOADER MACHINE OPERATOR Office Visit [facility] Primary Care [address] [address] Anne Villatoro MD [address] [address] Medicare annual wellness visit, subsequent [...] file Legal Sex Female 7:33 PM FRUIT LOADER MACHINE OPERATOR Gender Identity Not on file Sexual Orientation Not on file documented as of this encounter Last Filed Vital Signs Vital Sign Reading Time Taken Comments Blood Pressure 122/70 04/10/2020 8:07 AM FRUIT LOADER MACHINE OPERATOR Pulse 73 04/10/2020 8:07 AM FRUIT LOADER MACHINE OPERATOR Temperature 36.7 ??C (98.1 ??F) 04/10/2020 8:07 AM CS T Respiratory Rate - - Oxygen Saturation 97% 04/10/2020 8:07 AM FRUIT LOADER MACHINE OPERATOR Inhaled Oxygen Concentration - - Weight 60.1 kg (132 lb 9.6 oz) 04/10/2020 8:07 A M FRUIT LOADER MACHINE OPERATOR Height 154.9 cm (5' 1 ) 04/10/2020 8:07 AM FRUIT LOADER MACHINE OPERATOR Body Mass Index 25.05 04/10/2020 8:07 AM FRUIT LOADER MACHINE OPERATOR documented in this encounter Patient Instructions * Patient Instructions* Anne Villatoro MD - 04/10/2020 8:00 AM FRUIT LOADER MACHINE OPERATOR Chronic insomnia Good sleep hygiene. Continue trazodone [...] and establishing or updating healthcare power of manager photo document and providing our office with a copy. Please give the patient papers with information on Advanced Directives, Healthcare Power of Conservator Artifacts and Living Will to complete and bring [...] Cont annual eye exams with Dr Quiles T LOADER MACHINE OPERATOR documented in this encounter Progress Notes * [...] Directive (Living Will) and/or Durable Power of Conservator Artifacts?: No Would you like information regarding Advanced Directiv (Living Will) and/or Durable Power of Conservator Artifacts?: Yes Do you have trouble hearing the [...] file Gets together: Not on file Attends religion service: Not on file Active member of [...] Disp: 45 tablet, Rfl: 3 ??? vit C,B-Qe-rrurf-lutein-zeaxan [id number] ee-hppl-ur-mg capsule, Take 1 tablet by mouth daily, [...] González Moser OD (Ophthalmology) Primary Pharmacy/DME suppliers: [id number] - [place], [place] - [address] [facility] [address] [facility] [phone] Detection of Cognitive Impairment: The patient does [...] Improve Diet Advanced Directive Durable Power of Conservator Artifacts: NO Living Will : NO Assessment and [...] and establishing or updating healthcare power of manager photo document and providing our office with a copy. Please give the patient papers with information on Advanced Directives, Healthcare Power of Conservator Artifacts and Living Will to complete and bring [...] subcutaneous/IM (PNEUMOVAX) OV 1 yr for annual [facility] [place] Hep c ab screen, blood type, [...] This note is dictated and transcribed by AGLOGIC Fluency Direct Software. Die Engraver variances may occur. Despite proofreading, typographical errors may occur. T LOADER MACHINE OPERATOR documented in this encounter Miscellaneous Notes * Assessment & Plan Note - Anne Villatoro MD - 04/10/2020 8:56 AM FRUIT LOADER MACHINE OPERATOR Associated Problem(s): Refused influenza vaccine Has never been vaccinated for flu, continues to decline. T LOADER MACHINE OPERATOR * Assessment & Plan Note - Anne Villatoro MD - 04/10/2020 8:38 AM FRUIT LOADER MACHINE OPERATOR Associated Problem(s): Family history of macular degeneration Cont annual eye exams with Dr Quiles T LOADER MACHINE OPERATOR * Assessment & Plan Note - Anne Villatoro MD - 04/10/2020 8:20 AM FRUIT LOADER MACHINE OPERATOR Associated Problem(s): Family history of colon cancer in mother Dr Colin, Colonoscopy 02/26/2015 normal, due q [address] Colin, patient is sched in may 2020 T LOADER MACHINE OPERATOR T LOADER MACHINE OPERATOR * Assessment & Plan Note - Anne Villatoro MD - 04/10/2020 8:19 AM FRUIT LOADER MACHINE OPERATOR Associated Problem(s): Family history of colonic polyps (Deleted) Stool for FIT due 5 yr ff up screening due Refer to Dr Colin, patient is sched in may 2020 T LOADER MACHINE OPERATOR T LOADER MACHINE OPERATOR * Assessment & Plan Note - Anne Villatoro MD - 04/10/2020 8:16 AM FRUIT LOADER MACHINE OPERATOR Associated Problem(s): Risk for falls Patient at risk for falls due to age and co morbidities. Fall prevention discussed c patient in detail. Exercises for balance and coordination, keep LE muslces toned and strong. T LOADER MACHINE OPERATOR * Assessment & Plan Note - Anne Villatoro MD - 04/10/2020 8:16 AM FRUIT LOADER MACHINE OPERATOR Associated Problem(s): Medicare annual wellness visit, subsequent [...] and establishing or updating healthcare power of manager photo document and providing our office with a copy. Please give the patient papers with information on Advanced Directives, Healthcare Power of Conservator Artifacts and Living Will to complete and bring back to the office for their medical records. For comprehensive documentation of your Healthcare directives, I recommend that you fill out paperwork for 5 WISHES online at [email or web address] and return a copy of the completed forms to my office. T LOADER MACHINE OPERATOR T LOADER MACHINE OPERATOR * Assessment & Plan Note - Anne Villatoro MD - 04/10/2020 8:15 AM FRUIT LOADER MACHINE OPERATOR Associated Problem(s): Chronic insomnia Good sleep hygiene. Continue trazodone prn and melatonin prn T LOADER MACHINE OPERATOR T LOADER MACHINE OPERATOR documented in this encounter Plan of Treatment [...] reflect changes made after this encounter. vit C,H-Mf-hjqgz-lute in-zeaxan [id number] ac-qmnb-mm-mg capsule Take 1 tablet by mouth daily multivitamin capsule Take 1 capsule by mouth daily 08/11/2023 added in this encounter Orders Immunization/Injection Count Last Ordered Date First Ordered Date PNEUMOCOCCAL POLYSACCHARIDE VACCINE 23-VALENT =>2YO SQ IM 1 04/10/2020 documented in this encounter Care Teams Rabbit Breeder Relationship Specialty Start Date End Date Anne Villatoro MD [address] [place] [address] [address] [place], [place] [address] PCP - General Internal Medicine 11/09/18 James Peraza MD [address] [id number] Referring Physician Obstetrics and Gynecology 11/09/18 08/04/22 González Moser OD [address] [place] [address] Ophthalmology 04/10/20 documented as of this encounter
--- OUTSIDE RECORDS SUMMARY | 2024-04-15 23:38 | XMS_ITS | Encounter Summary ---
Author Organization [facility] Address [address] [address] Care Team Providers Care Chicken And Fish Cleaner Name Role Phone Anne Villatoro MD Primary Care Provider + [phone] James Peraza MD Unavailable + [phone] González Moser OD Unavailable +[phone] Encounter Details Date Type Department Care Team (Late st Contact Info) Description 04/10/2020 Orders Only [facility] Primary Care [address] [address] Anne Villatoro MD [address] [address] Encounter for hepatitis C screening [...] file Legal Sex Female 7:33 PM DIRECTOR OF PLACEMENT Gender Identity Not on file Sexual Orientation Not on file documented as of this encounter Miscellaneous Notes * Result Encounter Note - Kyleigh Vick MA - 05/12/2020 3:09 PM CST Patient notified, voices understanding. Lab orders [facility] to [facility] CTOR OF PLACEMENT * Result Encounter Note - Anne Villatoro MD - 05/09/2020 5:14 PM DIRECTOR OF PLACEMENT Please call patient with recent test results. Findings are all within normal limits except chol levels are up. The 10-year ASCVD risk score ([place] SHYLA Jr., et al., 2013) is: 6.3% Values used to calculate the score: Age: 69 years Sex: Female Is Non- : No Diabetic: No Tobacco smoker: No Systolic Blood Pressure: 122 mmHg Is BP treated: No HDL Cholesterol: 67 mg/dL Total Cholesterol: 235 mg/dL Remains under 7.5% NO STATIN MED INDICATED AT THIS TIME. Remainder of labs she can view on [employer] Online Scheduling. Repeat labs in 1 yr: Cbc, cmp, lipids CTOR OF PLACEMENT * Addendum Note - Katharina Kowalski MA - 04/10/2020 9:07 AM CSTAddended by: KATHARINA KOWALSKI on: 04/10/2020 09:32 AM Modules accepted: Orders CTOR OF PLACEMENT documented in this encounter Plan of Treatment Scheduled Orders Name Type Priority Associated Diagnoses Orde r Schedule Type and screen Lab Routine Screening for endocrine, metabolic, and immunity disorder Expected: 04/10/2020, Expires: 04/10/2021 documented as of this encounter Procedures Procedure Name Priority Date/Time Associated Diagnosis Comments URINALYSIS AND REFLEX TO MICROSCOPIC AND CULTURE Routine 05/08/2020 9:55 AM DIRECTOR OF PLACEMENT Screening for endocrine, metabolic, and immunity disorder HEPATITIS C ANTIBODY Routine 05/08/2020 9:55 AM DIRECTOR OF PLACEMENT Encounter for hepatitis C screening test for low risk patient ABO/RH Routine 05/08/2020 9:55 AM DIRECTOR OF PLACEMENT VITAMIN D 25 HYDROXY Routine 05/08/2020 9:55 AM DIRECTOR OF PLACEMENT Fatigue, unspecified type Vitamin D deficiency CBC WITHOUT DIFFERENTIAL Routine 05/08/2020 9:55 AM DIRECTOR OF PLACEMENT Screening for endocrine, metabolic, and immunity disorder TSH Routine 05/08/2020 9:55 AM DIRECTOR OF PLACEMENT Fatigue, unspecified type LIPID PANEL Routine 05/08/2020 9:55 AM DIRECTOR OF PLACEMENT Screening for endocrine, metabolic, and immunity disorder COMPREHENSIVE METABOLIC PANEL Routine 05/08/2020 9:55 AM DIRECTOR OF PLACEMENT Screening for endocrine, metabolic, and immunity disorder documented in this encounter Results * ABO/Rh (05/08/2020 9:55 AM DIRECTOR OF PLACEMENT) ABO typing O [facility] Rho(D) typing RH(D) POSITIVE [facility] Comment: For additional information, please refer to http://education.[employer].MetaPack/faq/DUP263 (This link is being provided for informational/ educational purposes only.) ? Your request to have a duplicate copy faxed has been acknowledged. ?Queued to: ??[id number] 05/08/2020 9:55 AM DIRECTOR OF PLACEMENT 05/08/2020 9:59 AM DIRECTOR OF PLACEMENT Narrative [facility] - 05/09/2020 2:45 PM DIRECTOR OF PLACEMENT COLLECTION KIT GIVEN TO PATIENT. PATIENT ADVISED TO RETURN. us Anne Villatoro MD LAB BLOOD BANK TEST ORDERABL ES Final Result [facility] [address] [address] * Vitamin D 25 hydroxy (05/08/2020 9:55 AM DIRECTOR OF PLACEMENT) Pathologist [facility] Vitamin D 25-OH 32 30 - 100 ng/mL [facility] Comment: Vitamin D Status ? 25-OH Vitamin D: Deficiency: ?<20 ng/mL Insufficiency: ? 20 - 29 ng/mL Optimal: ? > or = 30 ng/mL For 25-OH Vitamin D testing on patients on D2-supplementation and patients for whom quantitation of D2 and D3 fractions is required, the [facility](TM) 25-OH VIT D, (D2,D3), LC/MS/MS is recommended: order code 32763 (patients >2yrs). See Note 1 Note 1 For additional information, please refer to http://education.BIBA Apparels/faq/SRA810 (This link is being provided for informational/ educational purposes only.) Blood specimen (specimen) 05/08/2020 9:55 AM DIRECTOR OF PLACEMENT 05/08/2020 9:59 AM DIRECTOR OF PLACEMENT Narrative [facility] - 05/09/2020 2:45 PM DIRECTOR OF PLACEMENT COLLECTION KIT GIVEN TO PATIENT. PATIENT ADVISED TO RETURN. us Anne Villatoro MD LAB BLOOD ORDERABLES Final R esult [facility] [address] [place] [address] * (ABNORMAL) Urinalysis reflex to microscopic and culture Urine, clean voided (05/08/2020 9:55 AM DIRECTOR OF PLACEMENT) [facility] Color, ur YELLOW YELLOW [facility] Appearance, ur CLEAR CLEAR [facility] Specific gravity 1.020 1.001 - 1.035 [facility] pH, ur 5.5 5.0 - 8.0 [facility] Glucose, ur NEGATIVE NEGATIVE [facility] Bilirubin, ur NEGATIVE NEGATIVE [facility] Ketones, ur NEGATIVE NEGATIVE [facility] Blood, ur NEGATIVE NEGATIVE [facility] Protein, ur, quant NEGATIVE NEGATIVE [facility] Nitrites, ur NEGATIVE NEGATIVE [facility] Leukocyte esterase, ur NEGATIVE NEGATIVE [facility] WBC, ur NONE SEEN < OR = 5 /HPF [facility] RBC, ur NONE SEEN < OR = 2 /HPF [facility] Epithelial cells, squamous, ur 6-10(A) < OR = 5 /HPF [facility] Epithelial cells, transitional CANCELED < OR = 5 /HPF [facility] Comment:Result canceled by t he ancillary. Epithelial cells, renal, ur CANCELED < OR = 3 /HPF [facility] Comment:Result canceled by t he ancillary. Bacteria, ur, quant NONE SEEN NONE SEEN /HPF [facility] Calcium oxalate crystals, ur MODERATE(A) NONE OR FEW /HPF [facility] Triple phosphate crystals, ur CANCELED NONE OR FEW /HPF [facility] Comment:Result canceled by t he ancillary. Uric acid crystals, ur CANCELED NONE OR FEW /HPF [facility] Comment:Result canceled by t he ancillary. Amorphous crystals, ur CANCELED NONE OR FEW /HPF [facility] Comment:Result canceled by t he ancillary. Crystals, ur CANCELED NONE SEEN /HPF [facility] Comment:Result canceled by t he ancillary. Hyaline cast NONE SEEN NONE SEEN /LPF [facility] Granular casts, ur CANCELED NONE SEEN /LPF [facility] Comment:Result canceled by t he ancillary. Casts CANCELED NONE SEEN /LPF [facility] Comment:Result canceled by t he ancillary. Yeast, ur CANCELED NONE SEEN /HPF [facility] Comment:Result canceled by t he ancillary. Comments CANCELED [facility] Comment:Result canceled by t he ancillary. Note CANCELED [facility] Comment:Result canceled by t he ancillary. Urine culture [facility] Comment:NO CULTURE INDICATED Urine, clean voided 05/08/2020 9:55 AM DIRECTOR OF PLACEMENT 05/08/2020 9:59 AM DIRECTOR OF PLACEMENT Narrative [facility] - 05/09/2020 2:45 PM DIRECTOR OF PLACEMENT COLLECTION KIT GIVEN TO PATIENT. PATIENT ADVISED TO RETURN. us Anne Villatoro MD LAB MICROBIOLOGY - GENERAL O RDERABLES Final Result [facility] [address] [facility] [address] * (ABNORMAL) Lipid panel (05/08/2020 9:55 AM DIRECTOR OF PLACEMENT) Cholesterol 235(H) <200 mg/dL [facility] [...] LDL-C. Javier SS et al. DEMIAN. 2013;310(19): 3575-4004 (http://education.[employer] Communications.MetaPack/faq/IEX254) Chol/HDL ratio 3.5 <5.0 (calc) [facility] Non-HDL, (LDL+VLDL) 168(H) <130 mg/dL (calc) [facility] Comment: For patients with diabetes plus 1 major ASCVD risk factor, treating to a non-HDL-C goal of <100 mg/dL (LDL-C of <70 mg/dL) is considered a therapeutic option. Blood specimen (specimen) 05/08/2020 9:55 AM DIRECTOR OF PLACEMENT 05/08/2020 9:59 AM DIRECTOR OF PLACEMENT Narrative [facility] - 05/09/2020 2:45 PM DIRECTOR OF PLACEMENT COLLECTION KIT GIVEN TO PATIENT. PATIENT ADVISED TO RETURN. us Anne Villatoro MD LAB BLOOD ORDERABLES Final R esult [facility] [address] [address] * Comprehensive metabolic panel (05/08/2020 9:55 AM DIRECTOR OF PLACEMENT) Glucose 92 65 - 99 mg/dL [facility] Comment: ? Fasting reference interval BUN 17 7 - 25 mg/dL [facility] Creatinine 0.72 0.50 - 0.99 mg/dL [facility] Comment: For patients >49 years of age, the reference limit for Creatinine is approximately 13% higher for people identified as -Israeli. eGFR NON-AFR. SCOTTISH 87 > OR = 60 mL/min/1 .73m2 [facility] EGFR 100 > OR = 60 mL/min/1 .73m2 [facility] BUN/creat ratio NOT APPLICABLE 6 - 22 (calc) [facility] Sodium 143 135 - 146 mmol/L [facility] Potassium, pl 4.3 3.5 - 5.3 mmol/L [facility] Chloride 104 98 - 110 mmol/L [facility] CO2 32 20 - 32 mmol/L [facility] Calcium 9.4 8.6 - 10.4 mg/dL [facility] Protein, sr 6.7 6.1 - 8.1 g/dL [facility] Albumin 4.5 3.6 - 5.1 g/dL [facility] GLOBULIN 2.2 1.9 - 3.7 g/dL (calc) [facility] Alb/glob ratio 2.0 1.0 - 2.5 (calc) [facility] Bilirubin, total 0.5 0.2 - 1.2 mg/dL [facility] Alk phos 56 37 - 153 U/L [facility] AST 24 10 - 35 U/L [facility] ALT (SGPT) 19 6 - 29 U/L [facility] Blood specimen (specimen) 05/08/2020 9:55 AM DIRECTOR OF PLACEMENT 05/08/2020 9:59 AM DIRECTOR OF PLACEMENT Narrative [facility] - 05/09/2020 2:45 PM DIRECTOR OF PLACEMENT COLLECTION KIT GIVEN TO PATIENT. PATIENT ADVISED TO RETURN. Anne Villatoro MD LAB BLOOD ORDERABLES Final R [facility] Performing Organization Address City/[facility]/ZIP Co de Phone Number [facility] [address] [place] [address] * (ABNORMAL) CBC without differential (05/08/2020 9:55 AM DIRECTOR OF PLACEMENT) WBC 4.3 3.8 - 10.8 Thousand/uL [facility] [...] Blood specimen (specimen) 05/08/2020 9:55 AM DIRECTOR OF PLACEMENT 05/08/2020 9:59 AM DIRECTOR OF PLACEMENT Narrative [facility] - 05/09/2020 2:45 PM DIRECTOR OF PLACEMENT COLLECTION KIT GIVEN TO PATIENT. PATIENT ADVISED TO RETURN. Anne Villatoro MD LAB BLOOD ORDERABLES Final R esult Performing Organization Address City/[facility]/ZIP Co de Phone Number ARIEL FORMA [facility] [address] [place] [address] * TSH (05/08/2020 9:55 AM DIRECTOR OF PLACEMENT) Pathologist [facility] TSH 3.19 0.40 - 4.50 mIU/L [facility] Blood specimen (specimen) 05/08/2020 9:55 AM DIRECTOR OF PLACEMENT 05/08/2020 9:59 AM DIRECTOR OF PLACEMENT Narrative [facility] - 05/09/2020 2:45 PM DIRECTOR OF PLACEMENT COLLECTION KIT GIVEN TO PATIENT. PATIENT ADVISED TO RETURN. Anne Villatoro MD LAB BLOOD ORDERABLES Final R esult Performing Organization Address [facility] Co de Phone Number [facility] [address] [place] [address] * Hepatitis C antibody (05/08/2020 9:55 AM DIRECTOR OF PLACEMENT) [facility] Hep C Ab NON-REACTI VE NON-REACT SHIRAZ [facility] SIGNAL TO CUT-OFF 0.02 <1.00 [facility] Comment: HCV antibody was non-reactive. There is no laboratory evidence of HCV infection. In most cases, no further action is required. However, if recent HCV exposure is suspected, a test for HCV RNA (test code 46306) is suggested. For additional information please refer to http://education.Avista/faq/BPN28j8 (This link is being provided for informational/ educational purposes only.) Blood specimen (specimen) 05/08/2020 9:55 AM DIRECTOR OF PLACEMENT 05/08/2020 9:59 AM DIRECTOR OF PLACEMENT Narrative [facility] - 05/09/2020 2:45 PM DIRECTOR OF PLACEMENT COLLECTION KIT GIVEN TO PATIENT. PATIENT ADVISED TO RETURN. Anne Villatoro MD LAB MICROBIOLOGY - GENERAL O RDERABLES Final Result Performing Organization Address [facility] Co de Phone Number [facility] [address] [place] [address] documented in this encounter Visit Diagnoses Diagnosis [...] 04/10/2020 documented in this encounter Care Teams Chicken And Fish Cleaner Relationship Specialty Start Date End Date Anne Villatoro MD [address] [place] [address] PCP - General Internal Medicine 11/09/18 James Peraza MD [address] [address] Referring Physician Obstetrics and Gynecology 11/09/18 08/04/22 González Moser, ABILIO [address] [place] [address] Ophthalmology 04/10/20 documented as of this encounter
--- OUTSIDE RECORDS SUMMARY | 2024-04-15 23:38 | XMS_ITS | Encounter Summary ---
Author Organization [facility] Address [address] [facility] [address] [place] [address] Care Team Providers Care Nephrologist Name Role Phone Anne Villatoro MD Primary Care Provider + [phone] James Peraza MD Unavailable + [phone] Encounter Details Date Type Department Care Team (Late st Contact Info) Description 11/09/2018 Orders Only [facility] Internal Medicine [address] [place] [address] Anne Villatoro MD [facility] [address] Screening for endocrine, metabolic, and [...] on file Legal Sex Female 7:33 PM SWITCH TENDER Gender Identity Not on file Sexual [...] Primary documented in this encounter Care Teams Nephrologist Relationship Specialty Start Date End Date Anne Villatoro MD [address] [place] [id number] PCP - General Internal Medicine 11/09/18 James Peraza MD [address] [place] [id number] Referring Physician Obstetrics and Gynecology 11/09/18 08/04/22 documented as of this encounter
--- OUTSIDE RECORDS SUMMARY | 2024-04-15 23:38 | XMS_ITS | Encounter Summary ---
Author Organization [facility] Care Team Providers Care Chief Nuclear Medicine Technologist Name Role Phone Anne Villatoro MD Primary Care Provider + [phone] James Peraza MD Unavailable + [phone] González Moser OD Unavailable [phone] Carlos Antony MD Unavailable [phone] Esha Madrid MD Unavailable + [phone] Margarito Torre MD Unavailable +[phone] Encounter Details Date Type Department Care Team (Latest Contact Info) Description 03/23/2015 Orders Only [facility] CLINCONV ProviderAmber MD [address] [place] [address] Social History Tobacco Use Types Packs/Day Years Used Date Smoking Tobacco: Never Assessed Comments Unknown Sex and Gender Information Value Date Recorded Sex Assigned at Not on file Legal Sex Female 7:33 PM MASTER SHIP Gender Identity Not on file Sexual Orientation [...] on filedocumented in this encounter Care Teams Chief Nuclear Medicine Technologist Relationship Specialty Start Date End Date Anne Villatoro MD [address] [facility] [address] [place], [place] [address] PCP - General Internal Medicine 11/09/18 James Peraza MD [address] [facility] [address] [place] [address] Referring Physician Obstetrics and Gynecology 11/09/18 08/04/22 González Moser, OD [address] [place] [address] Ophthalmology 04/10/20 Carlos Antony MD [address] [place] [address] Dermatology 01/12/21 Esha Madrid MD [address] [facility] [address] [address] Consulting Physician Interventional Cardiology 08/05/22 Margarito Torre MD [address] [facility] [place] [address] Referring Physician Dermatology 08/05/22 documented as of this encounter
--- OUTSIDE RECORDS SUMMARY | 2024-04-15 23:38 | XMS_ITS | Encounter Summary ---
Author Organization [facility] Facility Care Team Providers Care Hooker Operator Name Role Phone Anne Villatoro MD Primary Care Provider + [phone] James Peraza MD Unavailable + [phone] González Moser OD Unavailable [phone] Carlos Antony MD Unavailable [phone] Esha Madrid MD Unavailable + [phone] Margarito Torre MD Unavailable +[phone] Encounter Details Date Type Department Care Team (Latest Contact Info) Description 09/30/2016 Orders Only [facility] CLINCONV ProviderAmber MD [address] [place] [address] Social History Tobacco Use Types Packs/Day Years Used Date Smoking Tobacco: Never Assessed Comments Unknown Sex and Gender Information Value Date Recorded Sex Assigned at Not on file Legal Sex Female 7:33 PM COUNTER HOP Gender Identity Not on file Sexual Orientation [...] on filedocumented in this encounter Care Teams Hooker Operator Relationship Specialty Start Date End Date Anne Villatoro MD [address] [facility] [address] [place], [place] [address] PCP - General Internal Medicine 11/09/18 James Peraza MD [address] [facility] [address] [place] [address] Referring Physician Obstetrics and Gynecology 11/09/18 08/04/22 González Moser, OD [address] [place] [address] Ophthalmology 04/10/20 Carlos Antony MD [address] [place] [address] Dermatology 01/12/21 Esha Madrid MD [address] [facility] [address], [place] [address] Consulting Physician Interventional Cardiology 08/05/22 Margarito Torre MD [address] [place] [address] Referring Physician Dermatology 08/05/22 documented as of this encounter
--- OUTSIDE RECORDS SUMMARY | 2024-04-15 23:38 | XMS_ITS | Encounter Summary ---
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 Gender Identity Not on file Sexual Orientation Not on file documented as of this encounter Progress Notes * Katharina Kowalski MA - 04/10/2020 9:13 AM CST BOM ME AUDITOR documented in this encounter Plan of Treatment Not on file documented as of this encounter Visit Diagnoses Diagnosis Post-menopausal- Primary Asymptomatic postmenopausal status (age-related) (natural) Family history of colon cancer in mother documented in this encounter Care Teams Nicker And Breaker Relationship Specialty Start Date End Date Anne Villatoro MD [address] [place] [id number] PCP - General Internal Medicine 11/09/18 James Peraza MD [address] [id number] Referring Physician Obstetrics and Gynecology 11/09/18 08/04/22 González Moser, ABILIO [address] [place], [place] [address] Ophthalmology 04/10/20 documented as of this encounter
--- OUTSIDE RECORDS SUMMARY | 2024-04-15 23:38 | XMS_ITS | Encounter Summary ---
Author Organization [facility] Medical [facility] Address [address] [address] Care Team Providers Care Photovoltaic Fabrication Technician Name Role Phone Anne Villatoro MD Primary Care Provider + [phone] James Peraza MD Unavailable + [phone] González Moser OD Unavailable [phone] Carlos Antony MD Unavailable [phone] Reason for Visit * Reason Onset Date Comments Hypertension 04/24/2022 Encounter Details Date Type Department Care Team (Late st Contact Info) Description 04/24/2022 Nurse Triage [facility] Medical [facility] Primary Care [address] [address] Anne Villatoro MD [facility] [address] Social History Tobacco Use Types [...] on file 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, and reading was 171/75 at 8:30 am and then stopped at pharmacy and blood pressure checkedat [facility] machine was 202/101 and pharmacist took blood [...] be seen Protocols used: Blood Pressure - [id number] MATION ENGINEERING TECHNICIAN * Telephone Encounter - Leyda Amato RN - 04/24/2022 12:14 PM CST Regarding: Elevated blood pressure, headaches ----- Message from Jeanette Rosenberg sent at 04/24/2022 12:06 PM AUTOMATION ENGINEERING TECHNICIAN ----- Symptom Based Call Chief Complaint: Elevated blood pressure, headaches 192/102 Did you review 911/Red Flag List?Yes Duration: 1 day Why was appointment not scheduled? 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 Patient has not taken any medication other than vitamins. Vit D, Mt C, multi and magnesium, melatonin Patient took one advil at 10:00 today and headache improving. Patient is on no roasterman medication Does message need to be routed? Yes-Action Needed MATION ENGINEERING TECHNICIAN documented in this encounter Plan of Treatment Not on file documented as of this encounter Visit Diagnoses Not on filedocumented in this encounter Care Teams Photovoltaic Fabrication Technician Relationship Specialty Start Date End Date Anne Villatoro MD 14[address] [facility] [address] [place] [address] PCP - General Internal Medicine 11/09/18 James Peraza MD [address] [address] Referring Physician Obstetrics and Gynecology 11/09/18 08/04/22 González Moser, ABILIO [address] [place] [address] Ophthalmology 04/10/20 Carlos Antony MD [address] [place] [address] Dermatology 01/12/21 documented as of this encounter
== END 2024-04-08 09:58 | disposition home or self-care (01) ==
PROVIDERS: Emergency Provider Nurse Practitioner Family; PCP Internal Medicine
DX: J06.9 Acute upper respiratory infection, unspecified (principal); E78.5 Hyperlipidemia, unspecified
CPT/HCPCS: 71046; 99213; G0463

== ENCOUNTER 2025-01-03 10:19 | Outpatient (CLI) | payer MEDICARE, SELFPAY ==
--- NOTE | ~2025-01-03 | MM_ITS ---
EXAMINATION: MM screening lashaun BI w jason HISTORY: Screening TECHNIQUE: Craniocaudal and mediolateral oblique 3-D tomosynthesis images were obtained and synthetic 2-D images were generated. CAD analysis was submitted and interpreted. COMPARISON: Comparison to multiple prior studies sequentially, with oldest reviewed study dated , 08/18/2018 BREAST PARENCHYMAL COMPOSITION: The breasts are almost entirely fatty. FINDINGS: There is no evidence of suspicious mass, calcification, or architectural distortion to suggest malignancy in either breast. IMPRESSION: 1. No mammographic evidence of malignancy. 2. Recommend routine screening mammography in one year. BI-RADS Category 1: Negative Reviewed, dictated and finalized at location B.
--- NOTE | ~2025-01-03 | DEXA_ITS ---
Bone Density Report Name: JEAN-PIERRE ONEAL Age: 74 Sex: Female Ethnicity: White Date of : 1950 Indication: osteopenia; Referring Provider: GEMINI, JULES Prabhakar Study: Bone densitometry was performed. Exam Date: January 03, 2025 Accession number: [id number] Bone Density: Region BMD T-score Z-score Classification AP Spine(L1-L4) 0.820 -2.1 0.2 Osteopenia Femoral Neck (Left) 0.699 -1.4 0.6 Osteopenia Total Hip (Left) 0.773 -1.4 0.3 Osteopenia Femoral Neck (Right) 0.698 -1.4 0.6 Osteopenia Total Hip (Right) 0.771 -1.4 0.2 Osteopenia Total Hip Mean 0.772 -1.4 0.3 Osteopenia World Health Organization criteria for BMD impression classify patients as: Normal (T-score at or above -1.0), Osteopenia (T-score between -1.0 and -2.5), or Osteoporosis (T-score at or below -2.5). 10-year Fracture Risk(1): Major Osteoporotic Fracture 9.9% Hip Fracture 1.5% Reported Risk Factors: [place] (), Neck BMD=0.699, BMI=23.9 (1) FRAX(R) Version 3.08. Fracture probability calculated for an untreated patient. Fracture probability may be lower if the patient has received treatment. Previous Exams: -- Region Exam Age BMD T-score BMD Change BMD Change Date g/cm2 vs Baseline vs Previous -- AP Spine (L1-L4) 01/03/2025 74 0.820 -2.1 -0.6% -4.5%* 05/25/2021 70 0.859 -1.7 4.1%* -6.7%* 02/03/2016 65 0.920 -1.2 11.5%* -1.7% 08/24/2012 62 0.936 -1.0 13.4%* 2.0% 10/23/2007 57 0.917 -1.2 11.1%* 11.1%* 09/28/2004 54 0.825 -2.0 Total Hip(Left) 01/03/2025 74 0.773 -1.4 -0.6% -6.5%* 05/25/2021 70 0.826 -0.9 6.3%* 0.0% 02/03/2016 65 0.826 -1.0 6.3%* 1.1% 08/24/2012 62 0.817 -1.0 5.2%* 6.9%* 10/23/2007 57 0.764 -1.5 -1.6% -1.6% 09/28/2004 54 0.777 -1.4 Total Hip(Right) 01/03/2025 74 0.771 -1.4 0.0% -3.8%* 05/25/2021 70 0.801 -1.2 3.9%* 0.0% 02/03/2016 65 0.801 -1.2 3.9%* -5.7%* 08/24/2012 62 0.850 -0.8 10.3%* 7.6%* 10/23/2007 57 0.790 -1.2 2.4% 2.4% 09/28/2004 54 0.771 -1.4 -- *Denotes significance at 95% confidence level, LSC for AP Spine = 0.022 g/cm2, LSC for Total Hip = 0.027 g/cm2 Clinical Information Provided by Patient: Has used the following medications: Fosamax (i.e. alendronate), Vitamin D Patient maximum height was 62 Menopause Age: 53 Drinks caffeinated beverages Onset of menses at age 15 Number of children 2 Impression: The patient has low bone mass, based on the Total Spine T-score. The patient has an estimated ten-year risk of hip fracture of 1.5% and an estimated ten-year risk of major fracture of 9.9%, based on the WHO FRAX algorithm. The BMD for the AP Spine (L1-L4) decreased, changing by -4.5% since the last DXA exam. The BMD for the Total Hip(Left) decreased, changing by -6.5% since the last DXA exam. The BMD for the Total Hip(Right) decreased, changing by -3.8% since the last DXA exam. Discussion: BONE DENSITY IS LOW AT ONE OR MORE SKELETAL SITES. This patient's lowest T-score is low at one or more skeletal sites. It meets the World Health Organization's (WHO) criteria for ?low bone mass? (T-score between -1.0 and -2.5). The patient's 10-year risk of fracture as calculated by FRAX is less than the threshold where pharmacological therapy is recommended by the National Osteoporosis Foundation (NOF). However, all treatment decisions require clinical judgment and consideration of individual patient factors, including patient preferences, comorbidities, previous drug use, risk factors not captured in the FRAX model (e.g., frailty, falls, vitamin D deficiency, increased bone turnover, interval significant decline in bone density) and possible under or overestimation of fracture risk by FRAX. The patient should follow a healthful lifestyle (good nutrition with adequate calcium and vitamin D, and appropriate weight-bearing exercise). Follow-Up: Consider repeating this study in 2 years to reassess this patient's status, or sooner if there is some new clinical indication. Reported by: ANDIE on 01/03/2025 11:00:00 AM. Reviewed, dictated and finalized at location A.
== END 2025-01-03 10:20 | disposition home or self-care (01) ==
LOC: MICIMG 10:19
PROVIDERS: PCP Internal Medicine; Visit Provider Internal Medicine
DX: Z12.31 Encounter for screening mammogram for malignant neoplasm of breast (principal); Z78.0 Asymptomatic menopausal state; M85.88 Other specified disorders of bone density and structure, other site; M85.852 Other specified disorders of bone density and structure, left thigh; M85.851 Other specified disorders of bone density and structure, right thigh
CPT/HCPCS: 77063; 77067; 77080